=== PATIENT | female | born 2000 | race Caucasian/White ===

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

== ENCOUNTER 2020-10-02 11:45 | Emergency (ER) | payer MEDICAID, SELFPAY ==
[2020-10-02 11:51] VITALS: BP 121/71; PULSE 82; RESP 16; TEMP 36.8; O2SAT 100
[2020-10-02] MEDS: Ibuprofen 600 MG TAB PO (12:09)
[2020-10-02 12:17] LABS: Bilirubin Negative (Negative); Blood Negative (Negative); Clarity Clear (Clear); Glucose Negative (Negative); Ketones Negative (Negative); Leukocyte Esterase Trace (Negative); Nitrite Negative (Negative); Specific Gravity >= 1.030 (1.005-1.025); Urobilinogen 0.2 EU/dL (Up TO 0.2)
--- NOTE | 2020-10-02 12:19 | W.ED.GENAD ---
Discharge Plan Disposition Patient Disposition: HOME Condition: Good Discharge Details Clinical Impression: Headache, Rash Primary Care Provider: Valentina Malik ED Provider: Hortencia Duncan Home Meds and New Rx's Prescriptions: New metoclopramide HCl [Reglan] 10 mg tablet 10 mg PO Q6H PRNQty: 10 RF: 0 No Action albuterol sulfate 8.5 GM HFA aerosol inhaler 2 puff Inhalation PRN PRNRF: 0 Flovent HFA 10.6 GM HFA aerosol inhaler 2 puff Inhalation DAILY RF: 0 loratadine [Claritin Liqui-Gel] 10 MG capsule 10 mg PO DAILY RF: 0 acetaminophen [Tylenol] 325 MG tablet 1 tab PO PRN PRNRF: 0 montelukast 10 MG tablet 10 mg PO DAILY RF: 0 buspirone 30 mg Tablet 30 mg PO BID RF: 0 ibuprofen [Ibuprofen IB] 200 mg Tablet 600 mg PO Q6H PRNRF: 0 Discharge Instructions Instructions: Acute Rash (ED), Viral Syndrome (ED) Additional Instructions: Take ibuprofen 600 mg every 8 hours with food as needed for pain Take Tylenol 650 mg every 4-6 hours as needed for discomfort Stay hydrated Take Reglan as needed for headache and nausea Stay away from poultry products of pain make you feel ill Return earlier should you have new or worsening complaints Medical Decision Making Clinical evidence of allergic reaction, no rash, patient in no distress, stable vital signs, feeling symptomatically improved after ibuprofen, Tylenol, Zofran Negative test Urinalysis is contaminated, patient denies any dysuria or frequency Will not send for culture Given Reglan prescription for home for headache should she need it and nausea We will follow up with primary care physician, will avoid poultry to see if it helps with her symptoms Given the threshold for terminating worsening complaints Differential Diagnosis Differential Diagnosis: Allergic reaction, anaphylaxis, migraine headache, dehydration Medical Records Medical records reviewed: Yes I reviewed the patient's medical records. HPI This 20-year-old female presents with headache and rash. She reportedly awoke this morning with a rash on her chest just before showering. She is attributing it to eating some cherries last evening. She states she felt fine after eating poultry did not have a rash at 5:00 in the morning. She denies any difficulty swallowing. She denies fever or chills. She has been intermittently nauseous without vomiting. She states after she check in she typically has a headache the following day. She does have a history of headaches. She this headache is a little bit worse than her typical. She denies any chance of . She denies any shortness of breath or persistent rash. General Date/Time Provider Initiated Documentation: 10/02/20 11:47. Related Data Home Medications Medication Instructions Recorded Confirmed Flovent HFA 2 puff INHALATION DAILY 11/11/14 10/02/20 albuterol sulfate 2 puff INHALATION PRN PRN 11/11/14 10/02/20 loratadine [Claritin Liqui-Gel] 10 mg PO DAILY 11/11/14 10/02/20 acetaminophen [Tylenol] 1 tab PO PRN PRN 06/13/15 10/02/20 montelukast 10 mg PO DAILY 12/06/16 10/02/20 buspirone 30 mg PO BID 10/25/18 10/02/20 ibuprofen [Ibuprofen IB] 600 mg PO Q6H PRN 09/10/19 10/02/20 metoclopramide HCl [Reglan] 10 mg PO Q6H PRN #10 tab 10/02/20 Previous Rx's Medication Instructions Recorded metoclopramide HCl [Reglan] 10 mg PO Q6H PRN #10 tab 10/02/20 Allergies Allergy/AdvReac Type Severity Reaction Status Date / Time Sulfa (Sulfonamide Allergy Severe Anaphylaxsi Unverified 10/02/20 11:55 Antibiotics) s doxycycline AdvReac Severe Nausea Unverified 10/02/20 11:55 diphenhydramine AdvReac Unverified 10/02/20 11:55 [From Benadryl] General Stated Complaint: Allergic JORGE L: 3 Review of Systems Narrative: Review of systems negative x7 aside from where indicated in HPI [facility] Medical History (Updated 10/02/20 @ 13:14 by EZEQUIEL Silveira) Asthma Social History Smoking/Tobacco Use Status: Never Smoking risk assessment performed?: Yes Alcohol Intake: never Drug use: Never Substance use type: does not use Do you feel safe at home: Yes Do you feel safe in your relationship?: Yes Exam Const General: cooperative and no acute distress HENMT Other: uvula midline, no drooling Eyes Pupils: PERRL EOM: EOM intact bilaterally Neck Other: no stridor Resp Effort & Inspection: normal respiratory effort Auscultation: clear to auscultation bilaterally Cardio Rate: regular rate Rhythm: regular rhythm Skin Other: no rash visualized Neuro General: patient alert, patient oriented x3 and CN's II-XI intact bilaterally Other: Ambulatory with steady gait Course Vital Signs Vital signs: Vital Signs Temperature 36.8 C 10/02/20 11:51 Pulse 82 10/02/20 11:51 Respiratory Rate 16 10/02/20 11:51 Blood Pressure 121/71 10/02/20 11:51 Pulse Oximetry 100 10/02/20 11:51 Temperature 36.8 C 10/02/20 11:51 Temperature Source Skin 10/02/20 11:51 Pulse 82 10/02/20 11:51 Respiratory Rate 16 10/02/20 11:51 Respiratory Effort Non-Labored 10/02/20 11:51 Blood Pressure 121/71 10/02/20 11:51 Blood Pressure Position Sitting 10/02/20 11:51 Pulse Oximetry 100 10/02/20 11:51 Oxygen Delivery Method Room Air 10/02/20 11:51 Oxygen Flow Rate 0 10/02/20 11:51 Pain Level 8 10/02/20 11:51 Lab/Test Results Lab/Test Results: POC- Test(urine) Negative
[2020-10-02] MEDS: Acetaminophen 500 MG TAB 1000 MG PO (12:22)
[2020-10-02] MEDS: Ondansetron O.D.T. 4 MG TABEF PO (12:22)
[2020-10-02 12:30] LABS: Bacteria Moderate HPF (Negative); Epithelial Cells Moderate HPF (Negative); Mucus Moderate (Negative); Other Cells Negative (Negative); RBC 0-2 HPF (0-2)
[2020-10-02 12:31] LABS: C & S Indicated? No/Sq. Contamination; Casts Negative LPF (Negative); Crystals Few Calcium Oxalate HPF (Negative)
[2020-10-02 13:35] VITALS: BP 113/73; PULSE 63; RESP 16; TEMP 36.8; O2SAT 99
== END 2020-10-02 13:15 | disposition home or self-care (01) ==
PROVIDERS: Emergency Provider Physician Assistant; PCP Nurse Practitioner Family
DX: R21 Rash and other nonspecific skin eruption (principal); R51.9 Headache, unspecified; R11.0 Nausea
CPT/HCPCS: 81025; 99283; 81003; 81015

== ENCOUNTER 2020-12-21 16:51 | Outpatient (REF) | payer MEDICAID, SELFPAY ==
[2020-12-21 22:10] LABS: TSH (W/Ref FT4) 0.94 uIU/mL (0.36-3.74)
[2020-12-22 16:53] LABS: Progesterone 10.2 ng/mL (See Table)
[2020-12-22 17:31] LABS: Prolactin 10.4 ng/mL (See Table)
[2020-12-22 17:34] LABS: FSH 5.4 mIU/mL (See Note); LH 6.9 mIU/mL (See Note)
== END 2020-12-21 16:52 | disposition home or self-care (01) ==
LOC: NCHCN 16:51
PROVIDERS: PCP Nurse Practitioner Family; Visit Provider Nurse Practitioner Family
DX: Z31.69 Encounter for other general counseling and advice on procreation (principal)
CPT/HCPCS: 83001; 83002; 84144; 84146; 84443

== ENCOUNTER 2021-03-28 01:09 | Emergency (ER) | payer MEDICAID, SELFPAY ==
--- NOTE | 2021-03-28 01:13 | W.ED.GENAD ---
Discharge Plan Disposition Patient Disposition: HOME Condition: Good Discharge Details Clinical Impression: Incomplete miscarriage Primary Care Provider: Valentina Malik ED Provider: Bulmaro Carranza Home Meds and New Rx's Prescriptions: Continued albuterol sulfate 8.5 GM HFA aerosol inhaler 2 puff Inhalation PRN PRNRF: 0 Flovent HFA 10.6 GM HFA aerosol inhaler 2 puff Inhalation DAILY RF: 0 loratadine [Claritin Liqui-Gel] 10 MG capsule 10 mg PO DAILY RF: 0 acetaminophen [Tylenol] 325 MG tablet 1 tab PO PRN PRNRF: 0 montelukast 10 MG tablet 10 mg PO DAILY RF: 0 buspirone 30 mg Tablet 30 mg PO BID RF: 0 ibuprofen [Ibuprofen IB] 200 mg Tablet 600 mg PO Q6H PRNRF: 0 Discharge Instructions Instructions: Miscarriage (ED) Additional Instructions: At this time you have evidence of an incomplete miscarriage. There is still a small component of your products of conception that are still in the uterus. Please follow-up closely with your OB specialist for reassessment and options of medication or instrumental D&C. Please take Tylenol and Motrin as needed for pain. If you notice any worsening of your symptoms, or any new symptoms such as vomiting, diarrhea, fever, chills, shortness of breath, chest pain, numbness, weakness, or fainting , please return immediately to the emergency department for reevaluation. Please follow up with your primary care provider as soon as possible for reassessment and reevaluation. As always, it was a pleasure participating in your medical care today. Stand Alone Forms: Work Release Referrals: Keira Juarez DO [OSTEOPATHIC DOCTOR] - Tasia Garcia MD [ [facility] STAFF PHYSICIAN] - Medical Decision Making This is a 21-year-old female who is a G3, P0 who had a miscarriage 1 to 2 weeks ago at 12 weeks of gestation based on period. She was seen by [facility]. She was given the RhoGam shot as she is Rh-. She had no pain after this, and has been doing well at home until about 12 hours ago when she developed mild pelvic pain, in conjunction with mild spotting. She denies any vomiting or diarrhea. She describes her pain is achy. She has not had a confirmatory ultrasound since the last ultrasound [facility] which showed no heartbeat for the fetus. Patient has no other complaints at this time. She did take Tylenol prior to arrival, but this did not help her symptoms. No other modifying factors. Physical exam demonstrates minimal pelvic tenderness, closed cervical os, bedside ultrasound shows small what appears to be retained products of conception in the uterus. Patient's exam is otherwise unremarkable. No pain at McBurney's point, negative Lares sign, no evidence of acute surgical abdomen. I did contact Dr. Juarez of OB, she does recommend close follow-up in the OB clinic for discussion of D&C and medication induced expulsion. She recommends close follow-up tomorrow. Patient was reassessed after Toradol was administered has complete resolution of her pain. Repeat abdominal exam at this time shows no abdominal tenderness whatsoever. Patient feels well and would like to go home. Discussed the importance of close follow-up with OB, and close reassessment. Diagnosis incomplete miscarriage. I have extensively reviewed the treatment plan and discharge instructions with the patient. I have addressed all patient concerns at this time. The patient was made aware of what symptoms to monitor for that would warrant a return to the emergency department. Discussed the plan with the patient, they demonstrate verbal understanding and agreement with our assessment and plan at this time. The documentation in this chart was dictated using eyefactive dictation software. Please excuse any dictation errors. HPI General Date/Time Provider Initiated Documentation: 03/28/21 01:10. HPI Narrative: This is a 21-year-old female who is a G3, P0 who had a miscarriage 1 to 2 weeks ago at 12 weeks of gestation based on period. She was seen by [facility]. She was given the RhoGam shot as she is Rh-. She had no pain after this, she did pass a moderate sized clot about a week ago. And has been doing well at home until about 12 hours ago when she developed mild pelvic pain, in conjunction with mild spotting. She denies any vomiting or diarrhea. She describes her pain is achy. She has not had a confirmatory ultrasound since the last ultrasound [facility] which showed no heartbeat for the fetus. Patient has no other complaints at this time. She did take Tylenol prior to arrival, but this did not help her symptoms. No other modifying factors. Related Data Home Medications Medication Instructions Recorded Confirmed Flovent HFA 2 puff INHALATION DAILY 11/11/14 03/28/21 albuterol sulfate 2 puff INHALATION PRN PRN 11/11/14 03/28/21 loratadine [Claritin Liqui-Gel] 10 mg PO DAILY 11/11/14 03/28/21 acetaminophen [Tylenol] 1 tab PO PRN PRN 06/13/15 03/28/21 montelukast 10 mg PO DAILY 12/06/16 03/28/21 buspirone 30 mg PO BID 10/25/18 03/28/21 ibuprofen [Ibuprofen IB] 600 mg PO Q6H PRN 09/10/19 03/28/21 Allergies Allergy/AdvReac Type Severity Reaction Status Date / Time Sulfa (Sulfonamide Allergy Severe Anaphylaxsi Unverified 03/28/21 01:26 Antibiotics) s doxycycline AdvReac Severe Nausea Unverified 03/28/21 01:26 diphenhydramine AdvReac Unverified 03/28/21 01:26 [From Benadryl] General JORGE L: 3 Review of Systems All systems reviewed & are unremarkable except as noted in HPI and below [facility] Medical History (Updated 03/28/21 @ 02:37 by Bulmaro Carranza DO) Asthma Social History Smoking/Tobacco Use Status: Never Smoking risk assessment performed?: Yes Alcohol Intake: never Drug use: Never Substance use type: does not use Do you feel safe at home: Yes Do you feel safe in your relationship?: Yes Exam Narrative Exam Narrative: 1.Const: Well-nourished, Well-developed, appearing stated age 2.Eyes: PERRL, no conjunctival injection, and symmetrical lids. 3.ENT: Atraumatic external nose and ears. Moist MM. Neck: Symmetric, trachea midline, No thyromegaly. 4.CVS: +S1/S2, No murmurs or gallops. Peripheral pulses 2+ and equal in all extremities. Brisk capillary refill in all extremities. 5.RESP: Unlabored respiratory effort. Clear to auscultation bilaterally. No wheezes rales or rhonchi 6.GI: Soft, nondistended, no guarding or rebound. Minimal pelvic tenderness in the suprapubic region/pelvic region. Vaginal exam was performed with female nurse Cheryl at bedside, cervix appears closed at this time. No significant cervical motion tenderness. No pain at McBurney's point, negative Lares sign 7.MSK: Normocephalic/Atraumatic, Extremities w/o deformity or ttp No cyanosis or clubbing, Normal movement of all extremities 8.Skin: Warm, Dry. No rashes or lesions. 9.Neuro: continuing education instructor II-XII grossly intact. Sensation grossly intact, no focal neurologic deficits. 10.Psych: (AAO) x3. Appropriate mood and affect
[2021-03-28 01:16] VITALS: BP 119/76; PULSE 81; RESP 16; TEMP 36.7; O2SAT 98
[2021-03-28 01:57] LABS: Abs Immature Grans 0.05 10^3/uL (0.0-0.06); Absolute Basophil Count 0.05 10^3/uL (0.0-0.2); Absolute Eosinophil Count 0.09 10^3/uL (0.0-0.7); Absolute Lymphocyte Count 3.73 10^3/uL (1.2-3.4); Absolute Monocyte Count 0.93 10^3/uL (0.1-0.8); Absolute Neutrophil Count 8.65 10^3/uL (1.2-6.7); Basophils % 0.4; Eosinophils % 0.7; HCT 38.2 % (36.0-46.0); HGB 12.6 g/dL (11.2-15.7); Immature Grans % 0.4; Lymphocytes % 27.6; MCH 29.4 pg (27.0-33.0); MPV 9.8 fL (8.0-11.0); Monocytes % 6.9; Nucleated RBC 0 %; Platelet Count 296 10^3/uL (130-400); RBC 4.29 10^6/uL (3.93-5.22); RDW 12.3 % (11.7-14.6); RDW-SD 40.4 fL; WBC 13.51 10^3/uL (4.4-10.8)
[2021-03-28] MEDS: Ketorolac 15 MG/ML VIAL IVP (02:02)
[2021-03-28 02:16] LABS: ALT 25 U/L (14-59); AST 17 U/L (15-37); Alkaline Phosphatase 57 U/L (46-116); Anion Gap 13.4 mmol/L (3-11); BUN 9 mg/dL (7-18); Bilirubin, Total 0.4 mg/dL (0.2-1.0); CO2 25.6 mmol/L (21.0-32.0); CREATININE 0.9 mg/dL (0.55-1.02); Calcium 8.7 mg/dL (8.5-10.1); Chloride 104 mmol/L (98-107); Glucose 92 mg/dL (74-106); HCG Quant, Pregnancy 313 mIU/mL (1-3); Potassium 3.5 mmol/L (3.5-5.1); Sodium 143 mmol/L (136-145); Total Protein 6.8 g/dL (6.4-8.2)
[2021-03-28 02:22] LABS: Bilirubin Negative (Negative); Blood Large (Negative); Clarity Sl Cloudy (Clear); Glucose Negative (Negative); Ketones Negative (Negative); Leukocyte Esterase Negative (Negative); Nitrite Negative (Negative); Specific Gravity >= 1.030 (1.005-1.025); Urobilinogen 0.2 EU/dL (Up TO 0.2)
[2021-03-28 02:27] LABS: Bacteria Rare HPF (Negative); C & S Indicated? No; Casts Negative LPF (Negative); Crystals Negative HPF (Negative); Epithelial Cells Rare HPF (Negative); Mucus Negative (Negative); WBC Negative HPF (0-5)
[2021-03-28 02:45] VITALS: BP 114/50; PULSE 80; RESP 16; O2SAT 98
== END 2021-03-28 02:47 | disposition home or self-care (01) ==
PROVIDERS: Emergency Provider Student in an Organized Health Care Education/Training Program; PCP Nurse Practitioner Family
DX: O03.4 Incomplete spontaneous abortion without complication (principal)
CPT/HCPCS: 36415; 80053; 86900; 86901; 96374; 99284; 81003; 81015; 84702; 85025; 99283; J1885

== ENCOUNTER 2021-04-22 10:46 | Emergency (ER) | payer MEDICAID, SELFPAY ==
[2021-04-22 10:51] VITALS: BP 118/64; PULSE 99; RESP 16; TEMP 38.5; O2SAT 100
[2021-04-22 11:05] LABS: Source Nasal/Nares
--- NOTE | 2021-04-22 11:08 | W.ED.GENAD ---
Discharge Plan Disposition Patient Disposition: HOME Condition: Improving Discharge Details Clinical Impression: COVID-19 Primary Care Provider: Valentina Malik ED Provider: Ken Gonzáles Home Meds and New Rx's Prescriptions: Continued albuterol sulfate 8.5 GM HFA aerosol inhaler 2 puff Inhalation PRN PRNRF: 0 Flovent HFA 10.6 GM HFA aerosol inhaler 2 puff Inhalation DAILY RF: 0 loratadine [Claritin Liqui-Gel] 10 MG capsule 10 mg PO DAILY RF: 0 acetaminophen [Tylenol] 325 MG tablet 1 tab PO PRN PRNRF: 0 montelukast 10 MG tablet 10 mg PO DAILY RF: 0 buspirone 30 mg Tablet 30 mg PO BID RF: 0 ibuprofen [Ibuprofen IB] 200 mg Tablet 600 mg PO Q6H PRNRF: 0 Discharge Instructions Instructions: Viral Syndrome (ED) Additional Instructions: You should continue to self isolate and mask I have written you a work note for 10 days off work. When you have no fevers and are symptom-free you should consider yourself safe for return to work in public activities. Tylenol and ibuprofen as needed for pain. Return to the ER if you have difficulty breathing or any other acute concerns. Stand Alone Forms: POSITIVE COVID-19/NO TESTING, Work Release Medical Decision Making 21-year-old female presents from home. She is not immunized against COVID-19. She lives in a house with 6 people. She notes 3 days now with cough, body ache, mild headache, nausea and malaise. She has had subjective fever and chills at home and arrives to ER with a temp of 38.5, pulse 99, oxygenating normally on room air. Her exam is reassuring. Rapid COVID-19 test obtained, patient given acetaminophen. Patient remained stable, no hypoxia. She does have positive COVID-19 PCR test. She is stable for outpatient management understands indications to seek reevaluation in the emergency department. HPI General Mode of arrival: ambulatory. Date/Time Provider Initiated Documentation: 04/22/21 10:49. Limitations to Documentation: no limitations. Information obtained by: patient. History of Present Illness 21 year old F presents to the emergency department with the chief complaint of Headache, body ache, dry cough, fever, described as moderate, Quality is described as dull, Patient reports no radiation. Patient started experiencing this day(s) and it has been intermittent. No relieving factors improve symptom(s), No exacerbating factors reported . Patient notes cough, fever/chills, headaches and malaise; denies shortness of breath and syncope. Patient did receive the following treatments prior to arrival, none Related Data Home Medications Medication Instructions Recorded Confirmed Flovent HFA 2 puff INHALATION DAILY 11/11/14 04/22/21 albuterol sulfate 2 puff INHALATION PRN PRN 11/11/14 04/22/21 loratadine [Claritin Liqui-Gel] 10 mg PO DAILY 11/11/14 04/22/21 acetaminophen [Tylenol] 1 tab PO PRN PRN 06/13/15 04/22/21 montelukast 10 mg PO DAILY 12/06/16 04/22/21 buspirone 30 mg PO BID 10/25/18 04/22/21 ibuprofen [Ibuprofen IB] 600 mg PO Q6H PRN 09/10/19 04/22/21 Allergies Allergy/AdvReac Type Severity Reaction Status Date / Time Sulfa (Sulfonamide Allergy Severe Anaphylaxsi Unverified 04/22/21 10:58 Antibiotics) s doxycycline AdvReac Severe Nausea Unverified 04/22/21 10:58 diphenhydramine AdvReac Unverified 04/22/21 10:58 [From Benadryl] General Stated Complaint: RespSymp JORGE L: 4 Review of Systems Narrative: Not vaccinated against COVID-19. Otherwise well. No vomiting today. Mild dull headache. Notes myalgias. 8 systems reviewed and otherwise negative [facility] Medical History (Updated 04/22/21 @ 12:05 by Ken Gonzáles MD) Asthma Social History Smoking/Tobacco Use Status: Never Smoking risk assessment performed?: Yes Alcohol Intake: never Drug use: Never Substance use type: does not use Do you feel safe at home: Yes Do you feel safe in your relationship?: Yes Exam Narrative Exam Narrative: GEN: awake, alert, oriented 3. Pleasant, well groomed, interactive. HEAD: Normocephalic, atraumatic ENT: Mucous membranes moist, oropharynx unremarkable, External ear exam unremarkable EYES: PERRL, EOMI NECK: Full ROM, no SUHA, no menigismus CHEST/RESP: Nontender, clear to auscultation bilateral, no wheeze/rhonchi/rales CARDIOVASCULAR: Borderline tachycardia, RRR, no murmur, rub domitila. 2+ Rad pulse bilateral ABDOMEN: Soft, nontender, no mass. +Bowel sounds EXT: Full ROM, no edema, no rash Neuro: Grossly normal neurologic exam, conversant, interactive. Psych: Speech fluent, thoughts congruent, affect normal Course Vital Signs Vital signs: Vital Signs Temperature 38.5 C H 04/22/21 10:51 Pulse 99 H 04/22/21 10:51 Respiratory Rate 16 04/22/21 10:51 Blood Pressure 118/64 04/22/21 10:51 Pulse Oximetry 100 04/22/21 10:51 Temperature 38.5 C H 04/22/21 10:51 Temperature Source Skin 04/22/21 10:51 Pulse 99 H 04/22/21 10:51 Respiratory Rate 16 04/22/21 10:51 Respiratory Effort Non-Labored 04/22/21 10:51 Blood Pressure 118/64 04/22/21 10:51 Blood Pressure Position Sitting 04/22/21 10:51 Pulse Oximetry 100 04/22/21 10:51 Oxygen Delivery Method Room Air 04/22/21 10:51 Oxygen Flow Rate 0 04/22/21 10:51 Pain Level 5 04/22/21 10:51 Lab/Test Results Lab/Test Results: Laboratory Tests Range/Units 04/22/21 11:02 COVID-19 Source Nasal/Nares
[2021-04-22] MEDS: Acetaminophen 500 MG TAB 1000 MG PO (11:30)
[2021-04-22 12:01] LABS: COVID-19 PCR POSITIVE (Negative)
[2021-04-22 12:11] VITALS: BP 118/64; PULSE 99; RESP 16; TEMP 38.5; O2SAT 100
== END 2021-04-22 12:16 | disposition home or self-care (01) ==
PROVIDERS: Emergency Provider Emergency Medicine; PCP Nurse Practitioner Family
DX: U07.1 COVID-19 (principal)
CPT/HCPCS: 87635; 99282; 99283

== ENCOUNTER 2021-10-20 13:22 | Emergency (ER) | payer MEDICAID, SELFPAY ==
[2021-10-20 13:38] VITALS: BP 123/83; PULSE 114; RESP 20; TEMP 36.5; O2SAT 98
--- NOTE | 2021-10-20 14:14 | ED.GENADUL_ITS ---
Discharge Plan Disposition Patient Disposition: HOME Condition: Stable Discharge Details Clinical Impression: Leukocytosis, Nausea vomiting and diarrhea Primary Care Provider: Valentina Malik ED Provider: Hortencia Duncan Home Meds and New Rx's Prescriptions: Continued albuterol sulfate 8.5 GM HFA aerosol inhaler 2 puff Inhalation PRN PRN0RF Label Comments: 04/03/17 has not taken recently, only with sports Flovent HFA 10.6 GM HFA aerosol inhaler 2 puff Inhalation DAILY 0RF loratadine [Claritin Liqui-Gel] 10 MG capsule 10 mg PO DAILY 0RF acetaminophen [Tylenol] 325 MG tablet 1 tab PO PRN PRN0RF montelukast 10 MG tablet 10 mg PO DAILY 0RF buspirone 30 mg Tablet 30 mg PO BID 0RF ibuprofen [Ibuprofen IB] 200 mg Tablet 600 mg PO Q6H PRN0RF Discharge Instructions Instructions: Acute Nausea and Vomiting (ED), Leukocytosis (ED) Additional Instructions: Have your white blood cell count rechecked by your doctor next week Take Zofran as needed for nausea and vomiting Clear liquid diet only Please return earlier should you have new or worsening complaints Motrin and Tylenol as needed for discomfort Discharge Data Discharge Date/Time-TO BE ENTERED AT DEPARTURE: 10/20/21 16:31 Medical Decision Making Patient leukocytosis, 21,000, likely secondary to vomiting and illness Otherwise appears well CMP consistent with dehydration, receiving 2 L of normal saline and antiemetics Abdominal exam benign, suspect musculoskeletal pain secondary to vomiting and otherwise healthy female I did consider CT imaging, however patient's abdominal exam is nontender She is given a specialist to return should she have Will need recheck of CBC in the outpatient setting, patient made aware Given antiemetics for home Likely viral etiology of patient's complaints Return precautions discussed and patient expressed understanding Discharged home in stable condition with stable vitals, symptomatically improved and able to follow p.o. challenge HPI General Date/Time Provider Initiated Documentation: 10/20/21 13:33 . HPI Narrative: This 21-year-old female presents with past medical history of genital herpes with report of nausea and vomiting which came on abruptly this morning. Parents reportedly sick with similar symptoms 2 days ago. Denies any fever or chills. Has nausea, vomiting, diarrhea. Pain started hematemesis. Denies any blood in stool. Denies any chest discomfort or current shortness of breath. Denies exposure to COVID-19. Denies any urinary symptoms. Denies any history of alcohol consumption or chance of . Describes the pain as cramping and partially alleviated with vomiting and diarrhea. Related Data Home Medications Medication Instructions Recorded Confirmed albuterol sulfate 90 mcg/actuation 2 puff INHALATION PRN PRN 11/11/14 10/20/21 aerosol inhaler fluticasone propionate 44 2 puff INHALATION DAILY 11/11/14 10/20/21 mcg/actuation HFA aerosol inhaler (Flovent HFA) loratadine 10 mg capsule (Claritin 10 mg PO DAILY 11/11/14 10/20/21 Liqui-Gel) acetaminophen 325 mg tablet 1 tab PO PRN PRN 06/13/15 10/20/21 (Tylenol) montelukast 10 mg tablet 10 mg PO DAILY 12/06/16 10/20/21 buspirone 30 mg tablet 30 mg PO BID 10/25/18 10/20/21 ibuprofen 200 mg tablet (Ibuprofen 600 mg PO Q6H PRN 09/10/19 10/20/21 IB) Allergies Allergy/AdvReac Type Severity Reaction Status Date / Time Sulfa (Sulfonamide Allergy Severe Anaphylaxsi Unverified 10/20/21 13:43 Antibiotics) s doxycycline AdvReac Severe Nausea Unverified 10/20/21 13:43 diphenhydramine AdvReac Unverified 10/20/21 13:43 [From Benadryl] General Stated Complaint: Nausea/Vomit/Diar JORGE L: 3 Review of Systems All systems reviewed & are unremarkable except as noted in HPI and below PFSH All Active Problems (Updated 10/20/21 @ 16:11 by EZEQUIEL Silveira) Headache (Acute) Rash (Acute) Incomplete miscarriage (Acute) COVID-19 (Acute) Leukocytosis (Acute) Nausea vomiting and diarrhea (Acute) Genital herpes (Acute) Allergic rhinitis due to pollen (Chronic 08/20/17) URI, acute (Acute) Strep pharyngitis (Acute) Medical History (Updated 10/20/21 @ 16:11 by EZEQUIEL Silveira) Asthma Social History Smoking/Tobacco Use Status: Never Smoking risk assessment performed?: Yes Alcohol Intake: never Drug use: Never Substance use type: does not use Do you feel safe at home: Yes Do you feel safe in your relationship?: Yes Exam Const General: cooperative, comfortable and no acute distress Eyes Sclera: sclerae normal Resp Effort & Inspection: normal respiratory effort Auscultation: clear to auscultation bilaterally Cardio Rate: regular rate Rhythm: regular rhythm GI Inspection: normal to inspection Auscultation: normal bowel sounds Other: Nontender abdominal exam Skin General skin exam: no rashes or lesions noted Neuro General: patient alert and patient oriented x3 Course Vital Signs Vital signs: Vital Signs Temperature 36.5 C 10/20/21 13:38 Pulse 114 H 10/20/21 13:38 Respiratory Rate 20 10/20/21 13:38 Blood Pressure 123/83 10/20/21 13:38 Pulse Oximetry 98 10/20/21 13:38 Temperature 36.5 C 10/20/21 13:38 Temperature Source Skin 10/20/21 13:38 Pulse 114 H 10/20/21 13:38 Respiratory Rate 20 10/20/21 13:38 Respiratory Effort 10/20/21 13:42 Blood Pressure 123/83 10/20/21 13:38 Blood Pressure Position Sitting 10/20/21 13:38 Pulse Oximetry 98 10/20/21 13:38 Oxygen Delivery Method Room Air 10/20/21 13:38 Oxygen Flow Rate 0 10/20/21 13:38 Pain Level 10 10/20/21 13:38
[2021-10-20 14:39] LABS: Abs Immature Grans 0.14 10^3/uL (0.0-0.06); Basophils % 0.3; HCT 47.2 % (36.0-46.0); HGB 15.5 g/dL (11.2-15.7); Immature Grans % 0.6; Lymphocytes % 3.8; MCH 29.3 pg (27.0-33.0); MCHC 32.8 % (32.0-36.0); MCV 89.2 fL (80-95); MPV 10.3 fL (8.0-11.0); Monocytes % 3.5; Neutrophils % 91.8; Nucleated RBC 0 %; Platelet Count 413 10^3/uL (130-400); RBC 5.29 10^6/uL (3.93-5.22); RDW 12.2 % (11.7-14.6); RDW-SD 40.4 fL; WBC 21.66 10^3/uL (4.4-10.8)
[2021-10-20 14:43] LABS: Absolute Basophil Count 0.06 10^3/uL (0.0-0.2); Absolute Monocyte Count 0.76 10^3/uL (0.1-0.8)
[2021-10-20 14:44] LABS: Absolute Lymphocyte Count 0.82 10^3/uL (1.2-3.4); Absolute Neutrophil Count 19.88 10^3/uL (1.2-6.7)
[2021-10-20 14:51] LABS: ALT 23 U/L (14-59); AST 20 U/L (15-37); Albumin 5.2 g/dL (3.4-5.0); Alkaline Phosphatase 52 U/L (46-116); BUN 15 mg/dL (7-18); Bilirubin, Total 0.8 mg/dL (0.2-1.0); Calcium 9.5 mg/dL (8.5-10.1); Chloride 105 mmol/L (98-107); Glucose 112 mg/dL (74-106); Lipase 70 U/L (73-393); Potassium 3.7 mmol/L (3.5-5.1); Sodium 140 mmol/L (136-145); Total Protein 8.8 g/dL (6.4-8.2)
[2021-10-20 15:00] LABS: Magnesium 2.3 mg/dL (1.8-2.4)
[2021-10-20] MEDS: Ketorolac 15 MG/ML VIAL IVP (15:02)
[2021-10-20] MEDS: Ondansetron 4 MG/2 ML VIAL IVP (15:04)
[2021-10-20] MEDS: Normal Saline 1,000 ML 1000 ML IV (15:04)
[2021-10-20 15:05] LABS: Bilirubin Negative (Negative); Blood Moderate (Negative); Clarity Clear (Clear); Glucose Negative (Negative); Ketones 15 mg/dL (Negative); Leukocyte Esterase Negative (Negative); Nitrite Negative (Negative); Specific Gravity >= 1.030 (1.005-1.025); Urobilinogen 0.2 EU/dL (Up TO 0.2)
[2021-10-20 15:23] LABS: Bacteria Negative HPF (Negative); Epithelial Cells Moderate HPF (Negative); RBC 0-2 HPF (0-2); WBC 0-2 HPF (0-5)
[2021-10-20 15:24] LABS: C & S Indicated? No; Casts Negative LPF (Negative); Crystals Negative HPF (Negative); Mucus Negative (Negative)
[2021-10-20 16:19] VITALS: BP 133/72; PULSE 94; RESP 16; O2SAT 100
[2021-10-22 11:09] LABS: COVID-19 RT-PCR UVMMC Result Negative (Negative)
== END 2021-10-20 16:31 | disposition home or self-care (01) ==
PROVIDERS: Emergency Provider Physician Assistant; PCP Nurse Practitioner Family
DX: R11.2 Nausea with vomiting, unspecified (principal); R19.7 Diarrhea, unspecified; D72.829 Elevated white blood cell count, unspecified; Z20.822 Contact with and (suspected) exposure to COVID-19
CPT/HCPCS: 36415; 80053; 81025; 83690; 96361; 96374; 96375; 99283; 99284; U0003; 81003; 81015; 83735; 85025; J1885; J2405

== ENCOUNTER 2022-01-04 11:09 | Outpatient (REF) | payer MEDICAID, SELFPAY ==
--- NOTE | 2022-01-04 10:20 | PAPFT_PTH ---
PATIENT: Jessica Milan LOC: [facility] U#:[id number] AGE/SX: 21/F ROOM: RE01/04/[address]: Kathi Lake NP : 2000 BED: DIS: 01/04/2022 SPEC #: [id number] RECD: 01/04/22 18:13 STATUS: NATALEEProsper REMaria Luisa #: [id number] SAGAR: 01/04/22 10:[address]: Kathi Lake NP DEPT: [facility] Cytology RECD BY: Hortencia Desai ENTERED: 01/04/22 18:14 SP TYPE: PAPFT OTHR DR: Darryn Moreno NP Tissues: 1 - CX/ENDOCX FOR PAP SMEARS Procedures: PAP THIN PREP/[facility] Screening Comments: [id number] (CHLAMYDIA/GC)
[2022-01-05 15:06] LABS: Chlamydia Result Negative (Negative); GC Result Negative (Negative)
== END 2022-01-04 11:10 | disposition home or self-care (01) ==
LOC: LBN 11:09
PROVIDERS: PCP Nurse Practitioner Family; Visit Provider Nurse Practitioner Women's Health
DX: Z11.3 Encounter for screening for infections with a predominantly sexual mode of transmission (principal); Z12.4 Encounter for screening for malignant neoplasm of cervix; R87.610 Atypical squamous cells of undetermined significance on cytologic smear of cervix (ASC-US)
CPT/HCPCS: 87491; 87591; 88142

== ENCOUNTER → 2022-01-18 01:23 | Outpatient (CLI) | payer MEDICAID, SELFPAY ==
--- NOTE | 2022-01-18 08:15 | DI.US_ITS ---
Exam(s) US SOFT TISSUE EXTREMITY EXAM: US SOFT TISSUE EXTREMITY CLINICAL HISTORY: Lump on left upper shoulder,r22.9. TECHNIQUE: Ultrasound was performed using standard protocol. COMPARISON: CT CT ABDOMEN PELVIS WO from 10/25/[address] CHEST PE CTA from 10/25/2018 FINDINGS: Sonographic assessment utilizing grayscale and color Doppler imaging was performed and targeted to th e area of clinical concern. There is a 3 x 2 x 3 millimeter hypoechoic area within the skin which is avascular. It is too small to characterize. DATA REPOSITORY:
== END ==
PROVIDERS: PCP Nurse Practitioner Family; Visit Provider Nurse Practitioner Family
DX: R22.32 Localized swelling, mass and lump, left upper limb (principal)
CPT/HCPCS: 76881

== ENCOUNTER 2022-02-10 17:28 | Emergency (ER) | payer MEDICAID, SELFPAY ==
[2022-02-10 17:44] VITALS: BP 121/63; PULSE 105; RESP 16; TEMP 37.7; O2SAT 100
[2022-02-10 17:51] VITALS: TEMP 37.6
[2022-02-10] MEDS: Ibuprofen 100 MG/5 ML CUP 600 MG PO (19:20)
[2022-02-10] MEDS: Dexamethasone 10 MG/ML VIAL PO (19:20)
--- NOTE | 2022-02-10 19:42 | W.ED.GENAD ---
Discharge Plan Disposition Patient Disposition: HOME Condition: Stable Discharge Details Clinical Impression: Acute viral syndrome Primary Care Provider: Darryn Moreno ED Provider: Mitch Hensley Home Meds and New Rx's Prescriptions: Continued medroxyprogesterone [Depo-Provera] 150 mg/mL syringe 150 mg IM [id number] Qty: 1 3RF fluoxetine 10 mg capsule 10 mg PO DAILY Qty: 30 0RF clonidine HCl 0.1 mg tablet 0.1 mg PO BID MDD 2 tabs PRN (Reason: agitation) Qty: 60 0RF fluticasone propionate [Flonase Allergy Relief] 50 mcg/actuation spray,suspension 1 spray intranasal BID Rx Instructions: administer into each nostril fluticasone propionate [Flovent HFA] 10.6 GM HFA aerosol inhaler 2 puff Inhalation DAILY Claritin Liqui-Gel 10 MG capsule 10 mg PO DAILY acetaminophen [Tylenol] 325 MG tablet 1 tab PO PRN PRN montelukast 10 MG tablet 10 mg PO DAILY ibuprofen [Ibuprofen IB] 200 mg Tablet 600 mg PO Q6H PRN Discharge Instructions Instructions: Viral Syndrome (ED) Additional Instructions: Please drink plenty of fluid and allow for plenty of rest. Use ibuprofen for discomfort or fever. Dose according to label. Please stay home and maintain isolation until COVID test result is available and normal. Please contact your primary care physician to arrange follow-up. Return to the ER immediately for any worsening or new concerning symptoms. Stand Alone Forms: Work Release Referrals: Darryn Moreno, DOCUMENT REVIEW SPECIALIST [Primary Care Provider] - Discharge Data Discharge Date/Time-TO BE ENTERED AT DEPARTURE: 02/10/22 19:57 Medical Decision Making 22-year-old female here with sore throat, fever, arthralgias. Patient has mild nausea. No cough. Mild headache. No neck stiffness. No meningismus. Patient is tachycardic and with low-grade fever on arrival. Patient notes difficulty swallowing secondary to pain. Patient does have some lymphadenopathy noted right anterior cervical. No stridor or trismus. No signs of strep pharyngitis. Patient was treated with Decadron 10 mg p.o. and ibuprofen 600 mg p.o. Patient noted improvement and was able to tolerate swallowing. Plan for discharge with outpatient follow-up. I will send COVID test. Patient was encouraged to return immediately for any worsening or new concerning symptoms. Usual customary discharge instructions otherwise reviewed with patient. HPI General Mode of arrival: ambulatory. Date/Time Provider Initiated Documentation: 02/10/22 18:36. Limitations to Documentation: no limitations. Information obtained by: patient. HPI Narrative: 22-year-old female presents with chief complaint of sore throat. Symptoms started this afternoon. Sore throat is moderate to severe and she does note pain with swallowing. Pain worse on the right side. She has associated fever and arthralgias. Patient has mild nausea. No cough. Mild headache. No neck stiffness. Related Data Home Medications Medication Instructions Recorded Confirmed fluticasone propionate 44 2 puff inhalation DAILY 11/11/14 02/10/22 mcg/actuation HFA aerosol inhaler (Flovent HFA) loratadine 10 mg capsule (Claritin 10 mg PO DAILY 11/11/14 02/10/22 Liqui-Gel) acetaminophen 325 mg tablet 1 tab PO PRN PRN 06/13/15 02/10/22 (Tylenol) montelukast 10 mg tablet 10 mg PO DAILY 12/06/16 02/10/22 ibuprofen 200 mg tablet (Ibuprofen 600 mg PO Q6H PRN 09/10/19 02/10/22 IB) fluticasone propionate 50 1 spray intranasal BID 12/02/21 02/10/22 mcg/actuation nasal spray,suspension (Flonase Allergy Relief) medroxyprogesterone 150 mg/mL 150 mg IM [id number] #1 mL 01/04/22 02/10/22 intramuscular syringe (Depo-Provera) clonidine HCl 0.1 mg tablet 0.1 mg PO BID PRN agitation #60 01/19/22 02/10/22 tabs fluoxetine 10 mg capsule 10 mg PO DAILY #30 caps 01/19/22 02/10/22 Previous Rx's Medication Instructions Recorded medroxyprogesterone 150 mg/mL 150 mg IM [id number] #1 mL 01/04/22 intramuscular syringe (Depo-Provera) clonidine HCl 0.1 mg tablet 0.1 mg PO BID PRN agitation #60 01/19/22 tabs fluoxetine 10 mg capsule 10 mg PO DAILY #30 caps 01/19/22 Allergies Allergy/AdvReac Type Severity Reaction Status Date / Time Sulfa (Sulfonamide Allergy Severe Anaphylaxsi Unverified 02/10/22 17:46 Antibiotics) s sulfamethoxazole Allergy Severe Unverified 02/10/22 17:46 [From Bactrim] trimethoprim [From Bactrim] Allergy Severe Unverified 02/10/22 17:46 mold Allergy Intermediate Unverified 02/10/22 17:46 pneumococcal vaccine Allergy Mild Unverified 02/10/22 17:46 pollen extracts Allergy Mild Unverified 02/10/22 17:46 doxycycline AdvReac Severe Nausea Unverified 02/10/22 17:46 diphenhydramine AdvReac Unverified 02/10/22 17:46 [From Benadryl] General Stated Complaint: Fever JORGE L: 3 Review of Systems All systems reviewed & are unremarkable except as noted in HPI and below Constitutional Constitutional: Reports body ache(s) and Reports fever(s) ENT Ears, Nose, Mouth, and Throat: Reports as per HPI Respiratory Respiratory: Denies cough PFSH All Active Problems Acute viral syndrome (Acute) Lump of skin (Acute) Allergies (Acute) Hallux valgus of left foot (Acute) Onychomycosis (Acute) Anxiety and depression (Chronic) Insomnia (Acute) Headache (Acute) Rash (Acute) COVID-19 (Acute) Genital herpes (Acute) HSV PCR blood test negative for HSV 1&2 09/08/2019 Allergic rhinitis due to pollen (Chronic 08/20/17) Medical History Asthma Astigmatism Incomplete miscarriage Surgical History H/O dilation and curettage History of surgical procedure (~09/2018) left middle finger S/P matrixectomy of toe of right foot Family History Mother Asthma Hypertension Father No problems noted. Sister No problems noted. Brother No problems noted. Maternal Grandfather , 50 Heart disease Maternal Grandmother No problems noted. Paternal Grandmother No problems noted. Social History Smoking/Tobacco Use Status: Never Smoking risk assessment performed?: Yes Alcohol Intake: never Drug use: Never Substance use type: does not use Caregiver/Support person: No Household members: other Details: parents Housing: house Communication Needs: None Do you need help understanding health information?: Never Pets and animals: Yes Pets and animals: cat(s), dog(s) and farm animals Sexually active: No Do you think of yourself as: straight/heterosexual Current gender identity: female What is your relationship status?: refused to answer How often do you talk on the phone with friends or family?: once per week How often do you get together with friends or relatives?: never How often do you attend lutheran or mandaen services?: decline to answer Do you belong to any clubs or organized social groups?: no Panel score (0-1 are the most socially isolated patients): 0 What type of physical activity do you participate in: none Seatbelt use: always Helmet use: Yes Helmet use: always Drive intox or ride 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 Do you feel safe at home: Yes Do you feel safe in your relationship?: Yes Female Reproductive History Menstrual control method: progesterone injection History History 1 Para 0 Hx # Term Pregnancies Multiple births Hx # Pregnancies Ectopic pregnancies AB induced Hx Number of Living Children AB spontaneous 1 Exam Const General: cooperative and no acute distress HENMT Mouth: moist mucous membranes and no trismus Throat: tonsils normal, uvula midline, no peritonsillar masses and posterior oropharynx abnormal erythema (mild b/l); no cobblstoning, no edema and no exudates Eyes Conjunctivae: normal conjunctivae Sclera: normal sclerae Neck Neck: full ROM, trachea midline, supple, no anterior neck swelling and lymphadenopathy (mild rt ant cervical) Thyroid: warm Resp Auscultation: clear to auscultation bilaterally, no rales, no rhonchi and no wheezes Cardio Rate: regular rate and not tachycardic Rhythm: regular rhythm GI Palpation: soft, not firm, no guarding, no masses, not rigid and nontender Skin General skin exam: no rashes or lesions noted Neuro General: patient alert, patient awake and tone normal Course Vital Signs Vital signs: Vital Signs Temperature 37.7 C H 02/10/22 17:44 Pulse 105 H 02/10/22 17:44 Respiratory Rate 16 02/10/22 17:44 Blood Pressure 121/63 02/10/22 17:44 Pulse Oximetry 100 02/10/22 17:44 Temperature 37.6 C 02/10/22 17:51 Temperature Source Oral 02/10/22 17:51 Pulse 105 H 02/10/22 17:44 Respiratory Rate 16 02/10/22 17:44 Respiratory Effort Non-Labored 02/10/22 17:49 Blood Pressure 121/63 02/10/22 17:44 Pulse Oximetry 100 02/10/22 17:44 Oxygen Delivery Method Room Air 02/10/22 17:44 Oxygen Flow Rate 0 02/10/22 17:44 Pain Level 10 02/10/22 17:44
[2022-02-10 19:53] VITALS: BP 124/68; PULSE 88; RESP 19; TEMP 36.7; O2SAT 98
[2022-02-12 14:14] LABS: COVID-19 RT-PCR UVMMC Result Negative (Negative)
== END 2022-02-10 19:57 | disposition home or self-care (01) ==
PROVIDERS: Emergency Provider Student in an Organized Health Care Education/Training Program; PCP Nurse Practitioner Family
DX: B34.9 Viral infection, unspecified (principal); R00.0 Tachycardia, unspecified; R59.0 Localized enlarged lymph nodes; J45.909 Unspecified asthma, uncomplicated; Z20.822 Contact with and (suspected) exposure to COVID-19; Z79.51 Long term (current) use of inhaled steroids
CPT/HCPCS: 99283; U0003; 99284; J1100

== ENCOUNTER 2022-05-14 10:49 | Emergency (ER) | payer MEDICAID, SELFPAY ==
[2022-05-14] VITALS (16 sets, daily range): BP systolic 119–137; BP diastolic 65–85; PULSE 58–99; RESP 14–18; TEMP 37.1; O2SAT 99–100
--- NOTE | 2022-05-14 11:26 | ED.GENADUL_ITS ---
Discharge Plan Disposition Patient Disposition: HOME Condition: Improving Discharge Details Chief Complaint: Nausea/Vomit/Diar Clinical Impression: Gastritis, Nausea & vomiting Primary Care Provider: Darrny Moreno ED Provider: Jake Stroud Home Meds and New Rx's Prescriptions: No Action medroxyprogesterone [Depo-Provera] 150 mg/mL syringe 150 mg IM [id number] Qty: 1 3RF montelukast 10 mg tablet 10 mg PO DAILY Qty: 90 4RF fluoxetine 20 mg capsule 20 mg PO DAILY Qty: 90 4RF Claritin Liqui-Gel 10 mg capsule 10 mg PO DAILY Qty: 90 4RF fluticasone propionate [Flonase Allergy Relief] 50 mcg/actuation spray,suspension 1 spray intranasal BID Qty: 16 4RF Rx Instructions: administer into each nostril clonidine HCl 0.1 mg tablet 0.1 mg PO BID MDD 2 tabs PRN (Reason: agitation) Qty: 60 1RF fluticasone propionate [Flovent HFA] 10.6 GM HFA aerosol inhaler 2 puff Inhalation DAILY acetaminophen [Tylenol] 325 MG tablet 1 tab PO PRN PRN ibuprofen [Ibuprofen IB] 200 mg Tablet 600 mg PO Q6H PRN Discharge Instructions Instructions: Gastritis (ED), Acute Nausea and Vomiting (ED) Medical Decision Making 22-year-old female presents with epigastric discomfort nausea and vomiting this morning while flutters in the setting of drinking heavily last night. Subjective epigastric discomfort on examination without guarding or rebounding. Hemodynamically stable no acute distress nonperitoneal. Likely component of gastritis versus hangover versus mild dehydration versus less likely pancreatitis, unlikely cholecystitis or appendicitis. Will obtain basic labs fluids GI cocktail close reassessment 13: 33 patient resting notably no acute distress labs unremarkable. Will be discharged home with Zofran as needed. Home care instructions and return precautions given. Likely resolving gastritis and hangover. HPI General Date/Time Provider Initiated Documentation: 05/14/22 10:53 . HPI Narrative: 22-year-old female presents with nausea epigastric discomfort and vomiting this morning multiple episodes in the setting of drinking heavily last night at a [employer]. Denies diarrhea or constipation. Receives the Depo contraceptive last menstrual period several months ago. Related Data Home Medications Medication Instructions Recorded Confirmed fluticasone propionate 44 2 puff inhalation DAILY 11/11/14 05/14/22 mcg/actuation HFA aerosol inhaler (Flovent HFA) loratadine 10 mg capsule (Claritin 10 mg PO DAILY #90 caps 11/11/14 05/14/22 Liqui-Gel) acetaminophen 325 mg tablet 1 tab PO PRN PRN 06/13/15 03/01/22 (Tylenol) ibuprofen 200 mg tablet (Ibuprofen 600 mg PO Q6H PRN 09/10/19 05/14/22 IB) medroxyprogesterone 150 mg/mL 150 mg IM [id number] #1 mL 01/04/22 05/14/22 intramuscular syringe (Depo-Provera) fluticasone propionate 50 1 spray intranasal BID #16 grams 02/22/22 05/14/22 mcg/actuation nasal spray,suspension (Flonase Allergy Relief) clonidine HCl 0.1 mg tablet 0.1 mg PO BID PRN agitation #60 02/27/22 05/14/22 tabs fluoxetine 20 mg capsule 20 mg PO DAILY #90 caps 03/01/22 05/14/22 montelukast 10 mg tablet 10 mg PO DAILY #90 tabs 03/01/22 05/14/22 Previous Rx's Medication Instructions Recorded loratadine 10 mg capsule (Claritin 10 mg PO DAILY #90 caps 11/11/14 Liqui-Gel) medroxyprogesterone 150 mg/mL 150 mg IM [id number] #1 mL 01/04/22 intramuscular syringe (Depo-Provera) fluticasone propionate 50 1 spray intranasal BID #16 grams 02/22/22 mcg/actuation nasal spray,suspension (Flonase Allergy Relief) clonidine HCl 0.1 mg tablet 0.1 mg PO BID PRN agitation #60 02/27/22 tabs fluoxetine 20 mg capsule 20 mg PO DAILY #90 caps 03/01/22 montelukast 10 mg tablet 10 mg PO DAILY #90 tabs 03/01/22 Allergies Allergy/AdvReac Type Severity Reaction Status Date / Time Sulfa (Sulfonamide Allergy Severe Anaphylaxsi Unverified 05/14/22 11:16 Antibiotics) s sulfamethoxazole Allergy Severe Unverified 05/14/22 11:16 [From Bactrim] trimethoprim [From Bactrim] Allergy Severe Unverified 05/14/22 11:16 mold Allergy Intermediate Unverified 05/14/22 11:16 pneumococcal vaccine Allergy Mild Unverified 05/14/22 11:16 pollen extracts Allergy Mild Unverified 05/14/22 11:16 doxycycline AdvReac Severe Nausea Unverified 05/14/22 11:16 diphenhydramine AdvReac Unverified 05/14/22 11:16 [From Benadryl] General Stated Complaint: Nausea/Vomit/Diar JORGE L: 3 Review of Systems Narrative: Review of Systems Constitutional: negative Eyes: negative ENT: negative Cardiovascular: negative Respiratory: negative Gastrointestinal: Abdominal pain nausea vomiting : negative Musculoskeletal: negative Skin: negative Neurologic: negative Psych: negative PFSH All Active Problems (Updated 05/14/22 @ 13:34 by Jake Stroud MD) Gastritis (Acute) Nausea & vomiting (Acute) Lump of skin (Acute) Allergies (Acute) Hallux valgus of left foot (Acute) Onychomycosis (Acute) Anxiety and depression (Chronic) Insomnia (Acute) Headache (Acute) Rash (Acute) COVID-19 (Acute) Genital herpes (Acute) HSV PCR blood test negative for HSV 1&2 09/08/2019 Allergic rhinitis due to pollen (Chronic 08/20/17) Medical History Asthma Astigmatism Incomplete miscarriage Surgical History H/O dilation and curettage History of surgical procedure (~09/2018) left middle finger S/P matrixectomy of toe of right foot Family History Mother Asthma Hypertension Father No problems noted. Sister No problems noted. Brother No problems noted. Maternal Grandfather , 50 Heart disease Maternal Grandmother No problems noted. Paternal Grandmother No problems noted. Social History Smoking/Tobacco Use Status: Never Smoking risk assessment performed?: Yes Alcohol Intake: current Alcohol Intake frequency: holidays/special occasions only Alcohol type: hard liquor Drug use: Never Substance use type: does not use Caregiver/Support person: No Household members: other Details: parents Housing: house Communication Needs: None Do you need help understanding health information?: Never Pets and animals: Yes Pets and animals: cat(s), dog(s) and farm animals Sexually active: No Do you think of yourself as: straight/heterosexual Current gender identity: female What is your relationship status?: refused to answer How often do you talk on the phone with friends or family?: once per week How often do you get together with friends or relatives?: never How often do you attend sikh or buddhist services?: decline to answer Do you belong to any clubs or organized social groups?: no Panel score (0-1 are the most socially isolated patients): 0 What type of physical activity do you participate in: none Seatbelt use: always Helmet use: Yes Helmet use: always Drive intox or ride w/intox feedmobile driver: No Do you feel safe at home: Yes Do you feel safe in your relationship?: Yes Additional Social history: boyfriend at bedside. Female Reproductive History Menstrual control method: progesterone injection History History 1 Para 0 Hx # Term Pregnancies Multiple births Hx # Pregnancies Ectopic pregnancies AB induced Hx Number of Living Children AB spontaneous 1 Exam Narrative Exam Narrative: Physical Examination General: alert, awake, cooperative, resting comfortably, no acute distress HEENT: normocephalic, atraumatic; PERRL, EOM intact, conjunctiva normal; no nasal discharge; moist mucous membranes, oral and pharyngeal mucosa normal, tolerating secretions Neck: supple, trachea midline; full ROM Chest: normal to inspection Respiratory: normal respiratory effort, speaking in full sentences, clear to auscultation, no wheezing, rales or rhonchi Cardiac: regular rate, regular rhythm, S1S2 intact, no murmurs rubs or gallops GI: abdomen soft, subjective discomfort in the epigastrium, no guarding or rebounding, non-distended; no palpable mass or hepatosplenomegaly Skin: no lesions, rashes or trauma appreciated Neuro: AAOx3, normal speech, moving all extremities Psych: Appropriate mood and affect Course Vital Signs Vital signs: Vital Signs Temperature 37.1 C 05/14/22 10:53 Pulse 99 H 05/14/22 10:53 Respiratory Rate 14 05/14/22 10:53 Blood Pressure 130/85 05/14/22 10:53 Pulse Oximetry 99 05/14/22 10:53 Temperature 37.1 C 05/14/22 10:53 Temperature Source Skin 05/14/22 10:53 Pulse 99 H 05/14/22 10:53 Respiratory Rate 14 05/14/22 10:53 Respiratory Effort Non-Labored 05/14/22 11:24 Blood Pressure 130/85 05/14/22 10:53 Blood Pressure Position Sitting 05/14/22 10:53 Pulse Oximetry 99 05/14/22 10:53 Oxygen Delivery Method Room Air 05/14/22 10:53 Oxygen Flow Rate 0 05/14/22 10:53 Pain Level 8 05/14/22 10:53 Comment alcohol last night - denies drug use 05/14/22 10:53 PAWSS Have you Been Recently Intoxicated or Drunk Within the Last 30 days?: Yes Have you Ever Experienced Previous Episodes of Alcohol Withdrawal?: No Have you ever Experienced Withdrawal Seizures?: No Have you ever Experienced Delirium Tremens(DT)s?: No Have you ever undergone Alcohol Rehabilitation Treatment (i.e, inpt ot outpatient treatment programs)?: No Have you ever Experienced Blackouts?: No Have you ever Combined Alcohol with other Downers within the last 90 days?: No Have you ever Combined Alcohol with any other Substance of Abuse during the last 90 days?: No Positive Blood Alcohol level on Presentation? [PCS.BAL]: No Evidence of Increased Autonomic Activity (i.e. HR>120, tremor, sweating, agitation, nausea)?: No Result: 1
[2022-05-14] MEDS: Ondansetron 4 MG/2 ML VIAL IVP (11:35)
[2022-05-14] MEDS: Lidocaine 2% Viscous 15 ML CUP PO (11:35)
[2022-05-14] MEDS: Famotidine 20 MG/2 ML VIAL IVP (11:35)
[2022-05-14] MEDS: Mylanta Suspension 30 ML CUP PO (11:35)
[2022-05-14] MEDS: Normal Saline 1,000 ML 1000 ML IV (11:36)
[2022-05-14 11:42] LABS: Abs Immature Grans 0.03 10^3/uL (0.0-0.06); Absolute Basophil Count 0.08 10^3/uL (0.0-0.2); Absolute Lymphocyte Count 2.18 10^3/uL (1.2-3.4); Absolute Monocyte Count 0.47 10^3/uL (0.1-0.8); Basophils % 0.7; HGB 14.3 g/dL (11.2-15.7); Immature Grans % 0.3; Lymphocytes % 19.8; MCH 28.9 pg (27.0-33.0); MCV 85 fL (80-95); MPV 9.9 fL (8.0-11.0); Monocytes % 4.3; Neutrophils % 74.9; Platelet Count 375 10^3/uL (130-400); RBC 4.94 10^6/uL (3.93-5.22); RDW-SD 37.1 fL; WBC 11.02 10^3/uL (4.4-10.8)
[2022-05-14 11:46] LABS: Absolute Neutrophil Count 8.25 10^3/uL (1.2-6.7)
[2022-05-14 11:49] LABS: ALT 19 U/L (14-59); AST 18 U/L (15-37); Albumin 4.8 g/dL (3.4-5.0); Alkaline Phosphatase 45 U/L (46-116); BUN 13 mg/dL (7-18); Bilirubin, Total 0.4 mg/dL (0.2-1.0); CREATININE 0.9 mg/dL (0.55-1.02); Calcium 9.6 mg/dL (8.5-10.1); Chloride 106 mmol/L (98-107); Glucose 95 mg/dL (74-106); Lipase 49 U/L (73-393); Potassium 4.2 mmol/L (3.5-5.1); Sodium 143 mmol/L (136-145); Total Protein 8.5 g/dL (6.4-8.2)
[2022-05-14] MEDS: Ondansetron O.D.T. 4 MG TABEF, 3 TABS/BTL PO (13:44)
== END 2022-05-14 13:53 | disposition home or self-care (01) ==
PROVIDERS: Emergency Provider Emergency Medicine; PCP Nurse Practitioner Family
DX: K29.00 Acute gastritis without bleeding (principal); R11.2 Nausea with vomiting, unspecified
CPT/HCPCS: 36415; 80053; 81025; 83690; 96361; 96374; 96375; 99284; 85025; 99283; J2405

== ENCOUNTER 2022-06-03 16:34 | Emergency (ER) | payer MEDICAID, SELFPAY ==
[2022-06-03 16:37] VITALS: BP 119/68; PULSE 76; RESP 16; TEMP 37; O2SAT 100
--- NOTE | 2022-06-03 16:43 | ED.GENADUL_ITS ---
Discharge Plan Disposition Patient Disposition: Home Condition: Stable Discharge Details Clinical Impression: Contusion of right shoulder region Primary Care Provider: Darryn Moreno ED Provider: Gianna Machado Home Meds and New Rx's Prescriptions: Continued medroxyprogesterone [Depo-Provera] 150 mg/mL syringe 150 mg IM [id number] Qty: 1 3RF montelukast 10 mg tablet 10 mg PO DAILY Qty: 90 4RF fluoxetine 20 mg capsule 20 mg PO DAILY Qty: 90 4RF Claritin Liqui-Gel 10 mg capsule 10 mg PO DAILY Qty: 90 4RF fluticasone propionate [Flonase Allergy Relief] 50 mcg/actuation spray,suspension 1 spray intranasal BID Qty: 16 4RF Rx Instructions: administer into each nostril clonidine HCl 0.1 mg tablet 0.1 mg PO BID MDD 2 tabs PRN (Reason: agitation) Qty: 60 1RF fluticasone propionate [Flovent HFA] 10.6 GM HFA aerosol inhaler 2 puff Inhalation DAILY acetaminophen [Tylenol] 325 MG tablet 1 tab PO PRN PRN ibuprofen [Ibuprofen IB] 200 mg Tablet 600 mg PO Q6H PRN Discharge Instructions Instructions: Contusion in Adults (ED) Additional Instructions: At this time x-ray showed no dislocation or broken bones. You suspect that you bruised right shoulder area. Apply ice, rest. Please take Tylenol or Ibuprofen with food every 4-6 hours as needed for pain and swelling. Follow up with primary care provider in 3-5 days. Return to ED sooner if any worsening or concerns. Increase oral fluids. Stand Alone Forms: Work Release Referrals: Darryn Moreno, [facility] [employer] [Primary Care Provider] - 2 weeks Discharge Data Discharge Date/Time-TO BE ENTERED AT DEPARTURE: 06/03/22 18:00 Medical Decision Making 22-year-old female presents to the ER with chief complaint of right shoulder pain status post a fall from approximately 2 feet which occurred yesterday while hunting. Patient reports she was climbing down a hill missed a step and fell backward onto her done which she was carrying on her back. She is complaining of right shoulder pain. Patient denies possibility of however I did order a urine pride, x-ray of right shoulder and Tylenol. Patient was given an ice pack in triage. Imaging Data Radiologic Study: Imaging: X-Ray Radiologist's impression: COMPARISON: US SOFT TISSUE EXTREMITY 01/18/2022 11:19 AM FINDINGS: Bones/joints: Normal. Soft tissues: Normal. IMPRESSION: 1. No acute findings. 2. No traumatic disruption. Sign Out No HPI General Mode of arrival: ambulatory . Date/Time Provider Initiated Documentation: 06/03/22 16:35 . Limitations to Documentation: no limitations . Information obtained by: RN notes reviewed and old records reviewed . HPI Narrative: 22-year-old female presents to the ER with chief complaint of right shoulder pain status post a fall from approximately 2 feet which occurred yesterday while hunting. Patient reports she was climbing down a hill missed a step and fell backward onto her done which she was carrying on her back. She is complaining of right shoulder pain. She does have posterior scapula pain with palpation. No ecchymosis, contusion swelling or obvious deformity. She has no other complaints or associated symptoms. She has a past medical history of anxiety and depression, insomnia. She did not take any Tylenol or ibuprofen prior to arrival. Related Data Home Medications Medication Instructions Recorded Confirmed fluticasone propionate 44 2 puff inhalation DAILY 11/11/14 06/03/22 mcg/actuation HFA aerosol inhaler (Flovent HFA) loratadine 10 mg capsule (Claritin 10 mg PO DAILY #90 caps 11/11/14 06/03/22 Liqui-Gel) acetaminophen 325 mg tablet 1 tab PO PRN PRN 06/13/15 06/03/22 (Tylenol) ibuprofen 200 mg tablet (Ibuprofen 600 mg PO Q6H PRN 09/10/19 06/03/22 IB) medroxyprogesterone 150 mg/mL 150 mg IM [id number] #1 mL 01/04/22 06/03/22 intramuscular syringe (Depo-Provera) fluticasone propionate 50 1 spray intranasal BID #16 grams 02/22/22 06/03/22 mcg/actuation nasal spray,suspension (Flonase Allergy Relief) clonidine HCl 0.1 mg tablet 0.1 mg PO BID PRN agitation #60 02/27/22 06/03/22 tabs fluoxetine 20 mg capsule 20 mg PO DAILY #90 caps 03/01/22 06/03/22 montelukast 10 mg tablet 10 mg PO DAILY #90 tabs 03/01/22 06/03/22 Previous Rx's Medication Instructions Recorded loratadine 10 mg capsule (Claritin 10 mg PO DAILY #90 caps 11/11/14 Liqui-Gel) medroxyprogesterone 150 mg/mL 150 mg IM [id number] #1 mL 01/04/22 intramuscular syringe (Depo-Provera) fluticasone propionate 50 1 spray intranasal BID #16 grams 02/22/22 mcg/actuation nasal spray,suspension (Flonase Allergy Relief) clonidine HCl 0.1 mg tablet 0.1 mg PO BID PRN agitation #60 02/27/22 tabs fluoxetine 20 mg capsule 20 mg PO DAILY #90 caps 03/01/22 montelukast 10 mg tablet 10 mg PO DAILY #90 tabs 03/01/22 Allergies Allergy/AdvReac Type Severity Reaction Status Date / Time Sulfa (Sulfonamide Allergy Severe Anaphylaxsi Unverified 06/03/22 16:41 Antibiotics) s sulfamethoxazole Allergy Severe Unverified 06/03/22 16:41 [From Bactrim] trimethoprim [From Bactrim] Allergy Severe Unverified 06/03/22 16:41 mold Allergy Intermediate Unverified 06/03/22 16:41 pneumococcal vaccine Allergy Mild Unverified 06/03/22 16:41 pollen extracts Allergy Mild Unverified 06/03/22 16:41 doxycycline AdvReac Severe Nausea Unverified 06/03/22 16:41 diphenhydramine AdvReac Unverified 06/03/22 16:41 [From Benadryl] General Stated Complaint: Nk/Back Pain JORGE L: 3 Review of Systems All systems reviewed & are unremarkable except as noted in HPI and below ENT Ears, Nose, Mouth, and Throat: Denies neck pain Musculoskeletal Musculoskeletal: Reports as per HPI, Reports back pain and Denies neck pain PFSH All Active Problems (Updated 06/03/22 @ 17:30 by Gianna Machado NP) Contusion of right shoulder region (Acute) Gastritis (Acute) Nausea & vomiting (Acute) Lump of skin (Acute) Allergies (Acute) Hallux valgus of left foot (Acute) Onychomycosis (Acute) Anxiety and depression (Chronic) Insomnia (Acute) Headache (Acute) Rash (Acute) COVID-19 (Acute) Genital herpes (Acute) HSV PCR blood test negative for HSV 1&2 09/08/2019 Allergic rhinitis due to pollen (Chronic 08/20/17) Medical History Asthma Astigmatism Incomplete miscarriage Surgical History H/O dilation and curettage History of surgical procedure (~09/2018) left middle finger S/P matrixectomy of toe of right foot Family History Mother Asthma Hypertension Father No problems noted. Sister No problems noted. Brother No problems noted. Maternal Grandfather , 50 Heart disease Maternal Grandmother No problems noted. Paternal Grandmother No problems noted. Social History Smoking/Tobacco Use Status: Never Smoking risk assessment performed?: Yes Alcohol Intake: current Alcohol Intake frequency: holidays/special occasions only Alcohol type: hard liquor Drug use: Never Substance use type: does not use Caregiver/Support person: No Household members: other Details: parents Housing: house Communication Needs: None Do you need help understanding health information?: Never Pets and animals: Yes Pets and animals: cat(s), dog(s) and farm animals Sexually active: No Do you think of yourself as: straight/heterosexual Current gender identity: female What is your relationship status?: refused to answer How often do you talk on the phone with friends or family?: once per week How often do you get together with friends or relatives?: never How often do you attend scientologist or mandaen services?: decline to answer Do you belong to any clubs or organized social groups?: no Panel score (0-1 are the most socially isolated patients): 0 What type of physical activity do you participate in: none Seatbelt use: always Helmet use: Yes Helmet use: always Drive intox or ride w/intox driver trainer: No Do you feel safe at home: Yes Do you feel safe in your relationship?: Yes Additional Social history: boyfriend at bedside. Female Reproductive History Menstrual control method: progesterone injection History History 1 Para 0 Hx # Term Pregnancies Multiple births Hx # Pregnancies Ectopic pregnancies AB induced Hx Number of Living Children AB spontaneous 1 Exam Narrative Exam Narrative: General: Well Developed, Awake and Alert, conversant. Skin: Warm and Dry HEENT: Head: No palpable deformities, Normocephalic Eyes: Pupils PERRLA, EOM's intact. No periorbital eccymosis or step off Ears: Canal patent. Tympanic membranes are clear . No armstrong's sign, no hemptymp arun. Nose/Face: Atraumatic. Facial bones nontender to palpation and stable with manipulation. Mouth/Throat: No intraoral trauma. Teeth and mandible are intact. Neck: No midline tenderness, no step off, no deformity to palpation of C-spine. Trachea midline. Chest: No surface trauma. Nontender without crepitus or deformity. Lungs clear to ausculatation bilaterally. Heart: RRR, no rubs, murmurs or gallop. Abdomen: No abrasions, ecchymosis, or surface trauma. Nondistended. Nontender to palpation no guarding, rebound, or rigidity. Pelvis: Nontender to palpation and stable to compression. Femoral pulses strong and equal Extremities: no surface trauma. Sensation intact. Peripheral pulses intact and equal. Neuro: ANO x4, GCS 15, cranial nerves II through XII intact. Motor and sensory exam nonfocal. Reflexes are symmetric. Extrem Right upper extremity: shoulder/upper arm Details: normal to inspection, tenderness Location: of the scapula and axillary nerve sensory function normal; no abrasions and no crepitus Course Vital Signs Vital signs: Vital Signs Temperature 37.0 C 06/03/22 16:37 Pulse 76 06/03/22 16:37 Respiratory Rate 16 06/03/22 16:37 Blood Pressure 119/68 06/03/22 16:37 Pulse Oximetry 100 06/03/22 16:37 Temperature 37.0 C 06/03/22 16:37 Temperature Source Temporal Artery Scan 06/03/22 16:37 Pulse 76 06/03/22 16:37 Respiratory Rate 16 06/03/22 16:37 Respiratory Effort Non-Labored 06/03/22 16:40 Blood Pressure 119/68 06/03/22 16:37 Blood Pressure Position Sitting 06/03/22 16:37 Pulse Oximetry 100 06/03/22 16:37 Oxygen Delivery Method Room Air 06/03/22 16:37 Oxygen Flow Rate 0 06/03/22 16:37 Pain Level 8 06/03/22 16:37
--- NOTE | 2022-06-03 16:45 | DI.RAD_ITS ---
Exam(s) XR SHOULDER RT COMPLETE 2+V EXAM: XR SHOULDER RT COMPLETE 2+V CLINICAL HISTORY: Fall, Shoulder pain TECHNIQUE: COMPARISON: No exams were available for comparison FINDINGS: Five views were obtained. There is no evidence of acute fracture or dislocation. IMPRESSION: RADIATION DOSE DELIVERED: Total DLP
[2022-06-03] MEDS: Acetaminophen 325 MG TAB 650 MG PO (16:52)
--- NOTE | 2022-06-03 17:21 | DI.VRAD_ITS ---
PROCEDURE INFORMATION: Exam: XR Right Shoulder Exam date and time: 06/03/2022 5:08 PM Age: 22 years old Clinical indication: Injury or trauma; Fall; Blunt trauma (contusions or hematomas); Shoulder; Right TECHNIQUE: Imaging protocol: Radiologic exam of the Right shoulder. Views: 2 or more views. COMPARISON: US SOFT TISSUE EXTREMITY 01/18/2022 11:19 AM FINDINGS: Bones/joints: Normal. Soft tissues: Normal. IMPRESSION: 1. No acute findings. 2. No traumatic disruption. Dictated and Authenticated by: Sy Traylor MD. Ordering:JOHN Katz MD
[2022-06-03 17:49] VITALS: BP 119/67; PULSE 72; RESP 16; TEMP 36.6; O2SAT 100
== END 2022-06-03 18:00 | disposition home or self-care (01) ==
PROVIDERS: Emergency Provider Registered Nurse Emergency; PCP Nurse Practitioner Family
DX: W18.39XA Other fall on same level, initial encounter; S40.011A Contusion of right shoulder, initial encounter
CPT/HCPCS: 81025; 99283; 73030

== ENCOUNTER 2022-06-11 07:35 | Emergency (ER) | payer MEDICAID, SELFPAY ==
[2022-06-11 07:41] VITALS: BP 122/68; PULSE 69; RESP 16; TEMP 37; O2SAT 100
--- NOTE | 2022-06-11 08:12 | ED.GENADUL_ITS ---
Discharge Plan Disposition Patient Disposition: Home Condition: Improving Discharge Details Clinical Impression: Pain, dental Primary Care Provider: Darryn Moreno ED Provider: Cresencio Virk Home Meds and New Rx's Prescriptions: New amoxicillin 875 mg tablet 875 mg PO BID Qty: 20 0RF Continued medroxyprogesterone [Depo-Provera] 150 mg/mL syringe 150 mg IM [id number] Qty: 1 3RF montelukast 10 mg tablet 10 mg PO DAILY Qty: 90 4RF fluoxetine 20 mg capsule 20 mg PO DAILY Qty: 90 4RF Claritin Liqui-Gel 10 mg capsule 10 mg PO DAILY Qty: 90 4RF fluticasone propionate [Flonase Allergy Relief] 50 mcg/actuation spray,gene pension 1 spray intranasal BID Qty: 16 4RF Rx Instructions: administer into each nostril clonidine HCl 0.1 mg tablet 0.1 mg PO BID MDD 2 tabs PRN (Reason: agitation) Qty: 60 1RF fluticasone propionate [Flovent HFA] 10.6 GM HFA aerosol inhaler 2 puff Inhalation DAILY acetaminophen [Tylenol] 325 MG tablet 1 tab PO PRN PRN ibuprofen [Ibuprofen IB] 200 mg Tablet 600 mg PO Q6H PRN Discharge Instructions Instructions: Toothache (ED) Additional Instructions: Amoxicillin as directed. [id number] medications such as Tylenol, Motrin, Orajel, etc. as directed for symptomatic control. Cool and/or warm compresses every 2 hours for 20 minutes. Salt water swish and spit as tolerated. Please watch for new or worsening symptoms and return to the ER for any concerns. Lastly, I have provided you with a dental list, please contact the dentist on this list tomorrow to set up prompt outpatient dental follow-up. Medical Decision Making 22-year-old female who denies significant past medical history reports left upper dental pain for the past few days, began after eating cheeze-its but denies any obvious injury or trauma. Denies fever, difficulty swallowing, etc. Clinically she appears well, nontoxic. Concern for early dental infection, would like to initiate amoxicillin. Patient is also agreeable to a dental block, dental block performed without difficulty she tolerated well. We will provide prescription for antibiotics and our local dental list to help expedite outpatient follow-up. Standard discharge and return precautions were provided. Patient understands, is agreeable to this plan, and has no additional questions or concerns upon discharge. This documentation was generated using [employer] dictation system, please disregard any oddities of phrase or misspellings. Medical Records Medical records reviewed: Yes I reviewed the patient's medical records. Sign Out No HPI General Mode of arrival: ambulatory . Date/Time Provider Initiated Documentation: 06/11/22 08:05 . Limitations to Documentation: no limitations . Information obtained by: patient . History of Present Illness 22 year old F presents to the emergency department with the chief complaint of L upper dental pain, described as moderate, with intensity rated at 7. Quality is described as aching, and is localized to the mouth. Patient reports no radiation. Patient started experiencing this day(s) (3) and it has been constant. No relieving factors improve symptom(s), No exacerbating factors reported . Patient notes no other symptoms.. Patient did receive the following treatments prior to arrival, NSAID Related Data Home Medications Medication Instructions Recorded Confirmed fluticasone propionate 44 2 puff inhalation DAILY 11/11/14 06/11/22 mcg/actuation HFA aerosol inhaler (Flovent HFA) loratadine 10 mg capsule (Claritin 10 mg PO DAILY #90 caps 11/11/14 06/11/22 Liqui-Gel) acetaminophen 325 mg tablet 1 tab PO PRN PRN 06/13/15 06/11/22 (Tylenol) ibuprofen 200 mg tablet (Ibuprofen 600 mg PO Q6H PRN 09/10/19 06/11/22 IB) medroxyprogesterone 150 mg/mL 150 mg IM [id number] #1 mL 01/04/22 06/11/22 intramuscular syringe (Depo-Provera) fluticasone propionate 50 1 spray intranasal BID #16 grams 02/22/22 06/03/22 mcg/actuation nasal spray,suspension (Flonase Allergy Relief) clonidine HCl 0.1 mg tablet 0.1 mg PO BID PRN agitation #60 02/27/22 06/11/22 tabs fluoxetine 20 mg capsule 20 mg PO DAILY #90 caps 03/01/22 06/11/22 montelukast 10 mg tablet 10 mg PO DAILY #90 tabs 03/01/22 06/11/22 amoxicillin 875 mg tablet 875 mg PO BID #20 tabs 06/11/22 Previous Rx's Medication Instructions Recorded loratadine 10 mg capsule (Claritin 10 mg PO DAILY #90 caps 11/11/14 Liqui-Gel) medroxyprogesterone 150 mg/mL 150 mg IM [id number] #1 mL 01/04/22 intramuscular syringe (Depo-Provera) fluticasone propionate 50 1 spray intranasal BID #16 grams 02/22/22 mcg/actuation nasal spray,suspension (Flonase Allergy Relief) clonidine HCl 0.1 mg tablet 0.1 mg PO BID PRN agitation #60 02/27/22 tabs fluoxetine 20 mg capsule 20 mg PO DAILY #90 caps 03/01/22 montelukast 10 mg tablet 10 mg PO DAILY #90 tabs 03/01/22 amoxicillin 875 mg tablet 875 mg PO BID #20 tabs 06/11/22 Allergies Allergy/AdvReac Type Severity Reaction Status Date / Time Sulfa (Sulfonamide Allergy Severe Anaphylaxsi Unverified 06/11/22 07:43 Antibiotics) s sulfamethoxazole Allergy Severe Unverified 06/11/22 07:43 [From Bactrim] trimethoprim [From Bactrim] Allergy Severe Unverified 06/11/22 07:43 mold Allergy Intermediate Unverified 06/11/22 07:43 pneumococcal vaccine Allergy Mild Unverified 06/11/22 07:43 pollen extracts Allergy Mild Unverified 06/11/22 07:43 doxycycline AdvReac Severe Nausea Unverified 06/11/22 07:43 diphenhydramine AdvReac Unverified 06/11/22 07:43 [From Benadryl] General Stated Complaint: DentalOral JORGE L: 4 Review of Systems Constitutional Constitutional: Denies fever(s) and Denies headache(s) ENT Ears, Nose, Mouth, and Throat: Denies otalgia and Denies headache(s) Integumentary/Breasts Skin/Breast: Denies rash Neurologic Neurologic: Denies headache(s) PFSH All Active Problems (Updated 06/11/22 @ 08:35 by EZEQUIEL New) Contusion of right shoulder region (Acute) Pain, dental (Acute) Gastritis (Acute) Nausea & vomiting (Acute) Lump of skin (Acute) Allergies (Acute) Hallux valgus of left foot (Acute) Onychomycosis (Acute) Anxiety and depression (Chronic) Insomnia (Acute) Headache (Acute) Rash (Acute) COVID-19 (Acute) Genital herpes (Acute) HSV PCR blood test negative for HSV 1&2 09/08/2019 Allergic rhinitis due to pollen (Chronic 08/20/17) Medical History Asthma Astigmatism Incomplete miscarriage Surgical History H/O dilation and curettage History of surgical procedure (~09/2018) left middle finger S/P matrixectomy of toe of right foot Family History Mother Asthma Hypertension Father No problems noted. Sister No problems noted. Brother No problems noted. Maternal Grandfather , 50 Heart disease Maternal Grandmother No problems noted. Paternal Grandmother No problems noted. Social History Smoking/Tobacco Use Status: Never Smoking risk assessment performed?: Yes Alcohol Intake: never Drug use: Never Substance use type: does not use Caregiver/Support person: No Household members: other Details: parents Housing: house Communication Needs: None Do you need help understanding health information?: Never Pets and animals: Yes Pets and animals: cat(s), dog(s) and farm animals Sexually active: No Do you think of yourself as: straight/heterosexual Current gender identity: female What is your relationship status?: refused to answer How often do you talk on the phone with friends or family?: once per week How often do you get together with friends or relatives?: never How often do you attend latter-day or bahai services?: decline to answer Do you belong to any clubs or organized social groups?: no Panel score (0-1 are the most socially isolated patients): 0 What type of physical activity do you participate in: none Seatbelt use: always Helmet use: Yes Helmet use: always Drive intox 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 Female Reproductive History Menstrual control method: progesterone injection History History 1 Para 0 Hx # Term Pregnancies Multiple births Hx # Pregnancies Ectopic pregnancies AB induced Hx Number of Living Children AB spontaneous 1 Exam Const General: cooperative, healthy appearing, comfortable and no acute distress Orientation: alert and awake [facility] Head: normal to inspection, normocephalic and atraumatic Ears: external ears normal, TM's normal bilaterally and EAC's normal General nose exam: external nose normal Face and sinus: normal facial exam Mouth: oral mucosae normal and moist mucous membranes Teeth and gingiva: fair dentition Teeth image: 1. Patient with diffuse mild discomfort tooth 10 through 14 worse over tooth 10. No obvious dental injury, abscess, etc. identified. Airway is patent. No trismus. Throat: posterior oropharynx normal Eyes General: appearance normal, both eyes and all related structures Conjunctivae: conjunctivae normal Neck Neck: normal visual inspection, full ROM, no lymphadenopathy, no meningeal signs, trachea midline, supple and nontender Resp Effort & Inspection: normal respiratory effort and able to speak in complete sentences Skin General skin exam: no rashes or lesions noted Neuro General: patient alert, patient awake, moves all extremities and no focal motor deficits Cognition: normal cognition Speech: speech normal Gait: normal gait Sensory Exam: no sensory deficits noted Psych Appearance: grossly normal Mental Status: mental status grossly normal Course Vital Signs Vital signs: Vital Signs Temperature 37.0 C 06/11/22 07:41 Pulse 69 06/11/22 07:41 Respiratory Rate 16 06/11/22 07:41 Blood Pressure 122/68 06/11/22 07:41 Pulse Oximetry 100 06/11/22 07:41 Temperature 37.0 C 06/11/22 07:41 Temperature Source Temporal Artery Scan 06/11/22 07:41 Pulse 69 06/11/22 07:41 Respiratory Rate 16 06/11/22 07:41 Respiratory Effort Non-Labored 06/11/22 07:45 Blood Pressure 122/68 06/11/22 07:41 Blood Pressure Position Sitting 06/11/22 07:41 Pulse Oximetry 100 06/11/22 07:41 Oxygen Delivery Method Room Air 06/11/22 07:41 Oxygen Flow Rate 0 06/11/22 07:41 Procedures Nerve Block Nerve Block 1: Time out performed: Yes Local Anesthetic: Lidocaine 1%, Bupivicaine 0.5% and other anesthetic ([id number] mixture) Amount of anesthesia used (mL): 3 Side: left Intraoral Nerve Block: infraorbital Procedure Successful: Yes Patient Tolerated Procedure: well and no complications Complications: none
[2022-06-11] MEDS: Lidocaine 1% Multi-Dose 20 ML VIAL (08:45)
[2022-06-11] MEDS: Amoxicillin 875 MG TAB PO (08:45)
[2022-06-11 20:40] VITALS: BP 120/64; PULSE 61; TEMP 36.6; O2SAT 100
== END 2022-06-11 08:54 | disposition home or self-care (01) ==
PROVIDERS: Emergency Provider Physician Assistant; PCP Nurse Practitioner Family
DX: K08.89 Other specified disorders of teeth and supporting structures (principal)
CPT/HCPCS: 64400; J3490

== ENCOUNTER 2022-06-11 18:18 | Emergency (ER) | payer MEDICAID, SELFPAY ==
[2022-06-11 18:21] VITALS: BP 127/77; PULSE 75; RESP 16; TEMP 36.8; O2SAT 100
--- NOTE | 2022-06-11 19:29 | ED.GENADUL_ITS ---
Discharge Plan Disposition Patient Disposition: Home Condition: Improving Discharge Details Chief Complaint: Nausea/Vomit/Diar Clinical Impression: Nausea & vomiting Primary Care Provider: Darryn Moreno ED Provider: Jake Stroud Home Meds and New Rx's Prescriptions: Continued medroxyprogesterone [Depo-Provera] 150 mg/mL syringe 150 mg IM [id number] Qty: 1 3RF montelukast 10 mg tablet 10 mg PO DAILY Qty: 90 4RF fluoxetine 20 mg capsule 20 mg PO DAILY Qty: 90 4RF Claritin Liqui-Gel 10 mg capsule 10 mg PO DAILY Qty: 90 4RF fluticasone propionate [Flonase Allergy Relief] 50 mcg/actuation spray,suspension 1 spray intranasal BID Qty: 16 4RF Rx Instructions: administer into each nostril clonidine HCl 0.1 mg tablet 0.1 mg PO BID MDD 2 tabs PRN (Reason: agitation) Qty: 60 1RF fluticasone propionate [Flovent HFA] 10.6 GM HFA aerosol inhaler 2 puff Inhalation DAILY acetaminophen [Tylenol] 325 MG tablet 1 tab PO PRN PRN amoxicillin 875 mg tablet 875 mg PO BID Qty: 20 0RF ibuprofen [Ibuprofen IB] 200 mg Tablet 600 mg PO Q6H PRN Discharge Instructions Instructions: Acute Nausea and Vomiting (ED) Additional Instructions: Continue your routine medications as previously prescribed. Follow-up with dentistry tomorrow as you have planned. Medical Decision Making <Ken Gonzáles MD - Last Filed: 06/11/22 19:42> This is a 22-year-old female who was seen in the ER earlier today for odontalgia and given amoxicillin and a dental block. She states following this she devel oped nausea and vomiting, was seen at another ER where she was given Zofran. She states she returned to home and had persistent nausea and vomiting and been intolerant to liquids and solids by mouth. States her dental pain has been improving and she has plans to follow-up with dentistry tomorrow. On exam she is fairly well-appearing but demonstrates mild diffuse tenderness in her abdomen. Likely this is gastroenteritis. Screening laboratories obtained and IV access established. Patient given fluid bolus, Ativan for its anxiolysis and antiemetic properties, as well as Toradol. As the patient presented just prior to change of shift I will sign her out to Dr. Stroud. Please see his note regarding final impression and disposition. Sign Out Yes <Jake Stroud MD - Last Filed: 06/11/22 20:23> This is a 22-year-old female who was seen in the ER earlier today for odontalgia and given amoxicillin and a dental block. She states following this she developed nausea and vomiting, was seen at another ER where she was given Zofran. She states she returned to home and had persistent nausea and vomiting and been intolerant to liquids and solids by mouth. States her dental pain has been improving and she has plans to follow-up with dentistry tomorrow. On exam she is fairly well-appearing but demonstrates mild diffuse tenderness in her abdomen. Likely this is gastroenteritis. Screening laboratories obtained and IV access established. Patient given fluid bolus, Ativan for its anxiolysis and antiemetic properties, as well as Toradol. As the patient presented just prior to change of shift I will sign her out to Dr. Stroud. Please see his note regarding final impression and disposition. 20: 22 patient resting comfortably no vomiting telemetry after fluids. Will give to go Rx of sublingual Zofran for tonight she has Zofran at home tomorrow. Home care instructions return precautions given HPI <Ken Goználes MD - Last Filed: 06/11/22 19:42> General Mode of arrival: ambulatory . Date/Time Provider Initiated Documentation: 06/11/22 18:25 . Limitations to Documentation: no limitations . Information obtained by: patient . History of Present Illness 22 year old F presents to the emergency department with the chief complaint of Nausea and vo miting, described as moderate and similar to prior episodes, Quality is described as dull, and is localized to the abdomen. Patient reports no radiation. Patient started experiencing this hour(s) and it has been intermittent. No relieving factors improve symptom(s), Eating worsens symptoms . Patient notes denies fever/chills and headaches. Patient did receive the following treatments prior to arrival, other (Patient had taken Zofran and had been started on amoxicillin) Related Data Home Medications Medication Instructions Recorded Confirmed fluticasone propionate 44 2 puff inhalation DAILY 11/11/14 06/11/22 mcg/actuation HFA aerosol inhaler (Flovent HFA) loratadine 10 mg capsule (Claritin 10 mg PO DAILY #90 caps 11/11/14 06/11/22 Liqui-Gel) acetaminophen 325 mg tablet 1 tab PO PRN PRN 06/13/15 06/11/22 (Tylenol) ibuprofen 200 mg tablet (Ibuprofen 600 mg PO Q6H PRN 09/10/19 06/11/22 IB) medroxyprogesterone 150 mg/mL 150 mg IM [id number] #1 mL 01/04/22 06/11/22 intramuscular syringe (Depo-Provera) fluticasone propionate 50 1 spray intranasal BID #16 grams 02/22/22 06/11/22 mcg/actuation nasal spray,suspension (Flonase Allergy Relief) clonidine HCl 0.1 mg tablet 0.1 mg PO BID PRN agitation #60 02/27/22 06/11/22 tabs fluoxetine 20 mg capsule 20 mg PO DAILY #90 caps 03/01/22 06/11/22 montelukast 10 mg tablet 10 mg PO DAILY #90 tabs 03/01/22 06/11/22 amoxicillin 875 mg tablet 875 mg PO BID #20 tabs 06/11/22 06/11/22 Previous Rx's Medication Instructions Recorded loratadine 10 mg capsule (Claritin 10 mg PO DAILY #90 caps 11/11/14 Liqui-Gel) medroxyprogesterone 150 mg/mL 150 mg IM [id number] #1 mL 01/04/22 intramuscular syringe (Depo-Provera) fluticasone propionate 50 1 spray intranasal BID #16 grams 02/22/22 mcg/actuation nasal spray,suspension (Flonase Allergy Relief) clonidine HCl 0.1 mg tablet 0.1 mg PO BID PRN agitation #60 02/27/22 tabs fluoxetine 20 mg capsule 20 mg PO DAILY #90 caps 03/01/22 montelukast 10 mg tablet 10 mg PO DAILY #90 tabs 03/01/22 amoxicillin 875 mg tablet 875 mg PO BID #20 tabs 06/11/22 Allergies Allergy/AdvReac Type Severity Reaction Status Date / Time Sulfa (Sulfonamide Allergy Severe Anaphylaxsi Unverified 06/11/22 18:24 Antibiotics) s sulfamethoxazole Allergy Severe Unverified 06/11/22 18:24 [From Bactrim] trimethoprim [From Bactrim] Allergy Severe Unverified 06/11/22 18:24 mold Allergy Intermediate Unverified 06/11/22 18:24 pneumococcal vaccine Allergy Mild Unverified 06/11/22 18:24 pollen extracts Allergy Mild Unverified 06/11/22 18:24 doxycycline AdvReac Severe Nausea Unverified 06/11/22 18:24 diphenhydramine AdvReac Unverified 06/11/22 18:24 [From Benadryl] General Stated Complaint: Nausea/Vomit/Diar JORGE L: 3 Review of Systems <Ken Gonzáles MD - Last Filed: 06/11/22 19:42> Narrative: 7 systems reviewed and otherwise negative PFSH <Ken Gonzáles MD - Last Filed: 06/11/22 19:42> All Active Problems (Updated 06/11/22 @ 20:22 by Jake Stroud MD) Contusion of right shoulder region (Acute) Pain, dental (Acute) Gastritis (Acute) Nausea & vomiting (Acute) Lump of skin (Acute) Allergies (Acute) Hallux valgus of left foot (Acute) Onychomycosis (Acute) Anxiety and depression (Chronic) Insomnia (Acute) Headache (Acute) Rash (Acute) COVID-19 (Acute) Genital herpes (Acute) HSV PCR blood test negative for HSV 1&2 09/08/2019 Allergic rhinitis due to pollen (Chronic 08/20/17) Medical History Asthma Astigmatism Incomplete miscarriage Surgical History H/O dilation and curettage History of surgical procedure (~09/2018) left middle finger S/P matrixectomy of toe of right foot Family History Mother Asthma Hypertension Father No problems noted. Sister No problems noted. Brother No problems noted. Maternal Grandfather , 50 Heart disease Maternal Grandmother No problems noted. Paternal Grandmother No problems noted. Social History Smoking/Tobacco Use Status: Never Smoking risk assessment performed?: Yes Alcohol Intake: never Drug use: Never Substance use type: does not use Caregiver/Support person: No Household members: other Details: parents Housing: house Communication Needs: None Do you need help understanding health information?: Never Pets and animals: Yes Pets and animals: cat(s), dog(s) and farm animals Sexually active: No Do you think of yourself as: straight/heterosexual Current gender identity: female What is your relationship status?: refused to answer How often do you talk on the phone with friends or family?: once per week How often do you get together with friends or relatives?: never How often do you attend anabaptist or sikhism services?: decline to answer Do you belong to any clubs or organized social groups?: no Panel score (0-1 are the most socially isolated patients): 0 What type of physical activity do you participate in: none Seatbelt use: always Helmet use: Yes Helmet use: always Drive intox 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 Female Reproductive History Menstrual control method: progesterone injection History History 1 Para 0 Hx # Term Pregnancies Multiple births Hx # Pregnancies Ectopic pregnancies AB induced Hx Number of Living Children AB spontaneous 1 Exam <Ken Gonzáles MD - Last Filed: 06/11/22 19:42> Narrative Exam Narrative: GEN: awake, alert, oriented 3. Pleasant, well groomed, interactive. HEAD: Normocephalic, atraumatic ENT: Mucous membranes moist, oropharynx unremarkable, she has mild tenderness at the left upper lateral incisor, no significant fluctuance appreciated, External ear exam unremarkable EYES: PERRL, EOMI NECK: Full ROM, no SUHA, no menigismus CHEST/RESP: Nontender, clear to auscultation bilateral, no wheeze/rhonchi/rales CARDIOVASCULAR: RRR, no murmur, rub domitila. 2+ Rad pulse bilateral ABDOMEN: Soft, tender in the abdomen without rebound or guarding, no mass. +Bowel sounds EXT: Full ROM, no edema, no rash Neuro: Grossly normal neurologic exam, conversant, interactive. Psych: Speech fluent, thoughts congruent, affect anxious Course <Ken Gonzáles MD - Last Filed: 06/11/22 19:42> Vital Signs Vital signs: Vital Signs Temperature 36.8 C 06/11/22 18:21 Pulse 75 06/11/22 18:21 Respiratory Rate 16 06/11/22 18:21 Blood Pressure 127/77 06/11/22 18:21 Pulse Oximetry 100 06/11/22 18:21 Temperature 36.8 C 06/11/22 18:21 Pulse 75 06/11/22 18:21 Respiratory Rate 16 06/11/22 18:21 Respiratory Effort Non-Labored 06/11/22 18:24 Blood Pressure 127/77 06/11/22 18:21 Blood Pressure Position Sitting 06/11/22 18:21 Pulse Oximetry 100 06/11/22 18:21 Oxygen Delivery Method Room Air 06/11/22 18:21 Oxygen Flow Rate 0 06/11/22 18:21 Sign Out <Ken Gonzáles MD - Last Filed: 06/11/22 19:42> Sign Out Data: Sign Out Comment: N/V, followup labs, response to IVF/meds Last updated by Ken Gonzáles MD at 06/11/22 19:33
[2022-06-11] MEDS: Normal Saline Flush 10 ML SYR IVP (19:35)
[2022-06-11] MEDS: Normal Saline 1,000 ML 1000 ML IV (19:40)
[2022-06-11] MEDS: Ondansetron 4 MG/2 ML VIAL IVP (19:40)
[2022-06-11] MEDS: Ketorolac 15 MG/ML VIAL IVP (19:43)
[2022-06-11] MEDS: LORazepam 2 MG/ML VIAL 0.5 MG IVP (19:45)
[2022-06-11 19:53] LABS: Abs Immature Grans 0.15 10^3/uL (0.0-0.06); Absolute Basophil Count 0.05 10^3/uL (0.0-0.2); Absolute Neutrophil Count 11.19 10^3/uL (1.2-6.7); Basophils % 0.4; HCT 38.8 % (36.0-46.0); HGB 13.4 g/dL (11.2-15.7); Immature Grans % 1.2; Lymphocytes % 7.8; MCH 29.1 pg (27.0-33.0); MCHC 34.5 % (32.0-36.0); MCV 84 fL (80-95); MPV 9.8 fL (8.0-11.0); Monocytes % 4.6; Platelet Count 330 10^3/uL (130-400); RDW 11.7 % (11.7-14.6); RDW-SD 35.7 fL; WBC 13.01 10^3/uL (4.4-10.8)
[2022-06-11 19:54] LABS: Absolute Lymphocyte Count 1.01 10^3/uL (1.2-3.4)
[2022-06-11 19:57] LABS: ALT 15 U/L (14-59); AST 15 U/L (15-37); Albumin 4.3 g/dL (3.4-5.0); Alkaline Phosphatase 50 U/L (46-116); Anion Gap 8.6 mmol/L (3-11); BUN 12 mg/dL (7-18); Bilirubin, Total 0.5 mg/dL (0.2-1.0); CO2 26.4 mmol/L (21.0-32.0); CREATININE 0.9 mg/dL (0.55-1.02); Calcium 9.2 mg/dL (8.5-10.1); Chloride 104 mmol/L (98-107); Glucose 91 mg/dL (74-106); Potassium 3.6 mmol/L (3.5-5.1); Sodium 139 mmol/L (136-145); Total Protein 7.9 g/dL (6.4-8.2)
[2022-06-11] MEDS: Ondansetron O.D.T. 4 MG TABEF PO (20:34)
== END 2022-06-11 20:34 | disposition home or self-care (01) ==
PROVIDERS: Emergency Medicine; Emergency Provider Emergency Medicine; PCP Nurse Practitioner Family
DX: R11.2 Nausea with vomiting, unspecified (principal); K08.89 Other specified disorders of teeth and supporting structures; R10.817 Generalized abdominal tenderness; J45.909 Unspecified asthma, uncomplicated; Z86.16 Personal history of COVID-19; Z79.51 Long term (current) use of inhaled steroids
CPT/HCPCS: 36415; 80053; 96361; 96374; 96375; 99284; 85025; J1885; J2060; J2405

== ENCOUNTER 2022-07-19 10:51 | Emergency (ER) | payer MEDICAID, SELFPAY ==
[2022-07-19 10:58] VITALS: BP 116/66; PULSE 114; RESP 18; O2SAT 100
--- NOTE | 2022-07-19 11:08 | ED.GENADUL_ITS ---
Discharge Plan Disposition Patient Disposition: Home Condition: Stable Discharge Details Clinical Impression: Sinusitis Primary Care Provider: Darryn Moreno ED Provider: Pawan Mcdonald Home Meds and New Rx's Prescriptions: New amoxicillin-pot clavulanate 875-125 mg tablet 1 tab PO Q12H 7 Days Qty: 14 0RF Continued medroxyprogesterone [Depo-Provera] 150 mg/mL syringe 150 mg IM [id number] Qty: 1 3RF montelukast 10 mg tablet 10 mg PO DAILY Qty: 90 4RF fluoxetine 20 mg capsule 20 mg PO DAILY Qty: 90 4RF Claritin Liqui-Gel 10 mg capsule 10 mg PO DAILY Qty: 90 4RF fluticasone propionate [Flonase Allergy Relief] 50 mcg/actuation spray,suspension 1 spray intranasal BID Qty: 16 4RF Rx Instructions: administer into each nostril clonidine HCl 0.1 mg tablet 0.1 mg PO BID MDD 2 tabs PRN (Reason: agitation) Qty: 60 1RF fluticasone propionate [Flovent HFA] 10.6 GM HFA aerosol inhaler 2 puff Inhalation DAILY acetaminophen [Tylenol] 325 MG tablet 1 tab PO PRN PRN ibuprofen [Ibuprofen IB] 200 mg Tablet 600 mg PO Q6H PRN Discharge Instructions Additional Instructions: You may continue to take [id number] medication including Tylenol or Motrin as needed for pain discomfort or fever. If you develop any new or significant worsening of symptoms feel free to return the emergency department for reassessment otherwise take your antibiotics as prescribed and follow-up with your primary care provider if not improving in the next week. Stand Alone Forms: Work Release Referrals: Darryn Moreno, BORING MACHINE OPERATOR HORIZONTAL [Primary Care Provider] - 1 week (If not improving) Medical Decision Making Patient presenting to the emergency department for chief complaint of sinus pressure, headache, fever chills, sore throat, cough. She states last week she was diagnosed with influenza and had symptoms for about a week and then improved for a couple days and then over the last 48 hours or so has acutely worsened with return of fever chills body aches and worsening sinus pressure. She states cough is nonproductive and mostly dry. Physical exam does show sinus tenderness otherwise unremarkable examination. Patient was swabbed for COVID and influenza along with strep and all results were negative. Suspect acute bacterial sinusitis given double illness sign. We will place patient on Augmentin. After discussion of diagnosis and plan of care patient has no further needs, questions, or concerns and states clear understanding to return to the emergency department for any worsening symptoms. This documentation was generated using [employer] dictation system, please disregard any oddities of phrase or misspellings. Lab Data Lab results reviewed: Yes I reviewed the patient's lab results. HPI General Mode of arrival: ambulatory . Date/Time Provider Initiated Documentation: 07/19/22 10:53 . Limitations to Documentation: no limitations . Information obtained by: patient and RN notes reviewed . History of Present Illness 22 year old F presents to the emergency department with the chief complaint of Sinus pressure, cough, congestion, sore throat, described as moderate, with intensity rated at 8. Quality is described as aching, and is localized to the face. Patient started experiencing this week(s) (1) and it has been constant. No relieving factors improve symptom(s), No exacerbating factors reported . Patient notes fever/chills, headaches and malaise. Patient did receive the following treatments prior to arrival, NSAID Related Data Home Medications Medication Instructions Recorded Confirmed fluticasone propionate 44 2 puff inhalation DAILY 11/11/14 07/19/22 mcg/actuation HFA aerosol inhaler (Flovent HFA) loratadine 10 mg capsule (Claritin 10 mg PO DAILY #90 caps 11/11/14 07/19/22 Liqui-Gel) acetaminophen 325 mg tablet 1 tab PO PRN PRN 06/13/15 07/19/22 (Tylenol) ibuprofen 200 mg tablet (Ibuprofen 600 mg PO Q6H PRN 09/10/19 07/19/22 IB) medroxyprogesterone 150 mg/mL 150 mg IM [id number] #1 mL 01/04/22 07/19/22 intramuscular syringe (Depo-Provera) fluticasone propionate 50 1 spray intranasal BID #16 grams 02/22/22 07/19/22 mcg/actuation nasal spray,suspension (Flonase Allergy Relief) clonidine HCl 0.1 mg tablet 0.1 mg PO BID PRN agitation #60 02/27/22 07/19/22 tabs fluoxetine 20 mg capsule 20 mg PO DAILY #90 caps 03/01/22 07/19/22 montelukast 10 mg tablet 10 mg PO DAILY #90 tabs 03/01/22 07/19/22 amoxicillin 875 mg-potassium 1 tab PO Q12H 7 days #14 tabs 07/19/22 clavulanate 125 mg tablet Previous Rx's Medication Instructions Recorded loratadine 10 mg capsule (Claritin 10 mg PO DAILY #90 caps 11/11/14 Liqui-Gel) medroxyprogesterone 150 mg/mL 150 mg IM [id number] #1 mL 01/04/22 intramuscular syringe (Depo-Provera) fluticasone propionate 50 1 spray intranasal BID #16 grams 02/22/22 mcg/actuation nasal spray,suspension (Flonase Allergy Relief) clonidine HCl 0.1 mg tablet 0.1 mg PO BID PRN agitation #60 02/27/22 tabs fluoxetine 20 mg capsule 20 mg PO DAILY #90 caps 03/01/22 montelukast 10 mg tablet 10 mg PO DAILY #90 tabs 03/01/22 amoxicillin 875 mg-potassium 1 tab PO Q12H 7 days #14 tabs 07/19/22 clavulanate 125 mg tablet Allergies Allergy/AdvReac Type Severity Reaction Status Date / Time Sulfa (Sulfonamide Allergy Severe Anaphylaxsi Unverified 07/19/22 11:02 Antibiotics) s sulfamethoxazole Allergy Severe Unverified 07/19/22 11:02 [From Bactrim] trimethoprim [From Bactrim] Allergy Severe Unverified 07/19/22 11:02 mold Allergy Intermediate Unverified 07/19/22 11:02 pneumococcal vaccine Allergy Mild Unverified 07/19/22 11:02 pollen extracts Allergy Mild Unverified 07/19/22 11:02 doxycycline AdvReac Severe Nausea Unverified 07/19/22 11:02 diphenhydramine AdvReac Unverified 07/19/22 11:02 [From Benadryl] General Stated Complaint: Sorethroat JORGE L: 4 Review of Systems Constitutional Constitutional: Reports body ache(s), Reports chills, Reports fever(s), Reports headache(s) and Reports malaise Eyes Eyes: Denies eye discharge ENT Ears, Nose, Mouth, and Throat: Reports as per HPI, Denies ear discharge, Denies otalgia, Reports headache(s), Reports nasal congestion, Reports nasal discharge, Denies neck pain, Reports sinus pain, Reports sinus pressure, Reports sore throat and Denies throat swelling Cardiovascular Cardiovascular: Denies chest pain and Denies dyspnea Respiratory Respiratory: Reports cough and Denies dyspnea Gastrointestinal Gastrointestinal: Denies abdominal pain, Denies diarrhea, Denies nausea and Denies vomiting Musculoskeletal Musculoskeletal: Denies joint swelling and Denies neck pain Integumentary/Breasts Skin/Breast: Denies rash Neurologic Neurologic: Reports headache(s) Allergic/Immunologic Allergic/Immunologic: Denies throat swelling PFSH All Active Problems (Updated 07/19/22 @ 11:28 by Pawan Mcdonald NP) Sinusitis (Acute) Lump of skin (Acute) Allergies (Acute) Hallux valgus of left foot (Acute) Onychomycosis (Acute) Anxiety and depression (Chronic) Insomnia (Acute) Headache (Acute) Rash (Acute) COVID-19 (Acute) Genital herpes (Acute) HSV PCR blood test negative for HSV 1&2 09/08/2019 Allergic rhinitis due to pollen (Chronic 08/20/17) Medical History Asthma Astigmatism Incomplete miscarriage Surgical History H/O dilation and curettage History of surgical procedure (~09/2018) left middle finger S/P matrixectomy of toe of right foot Family History Mother Asthma Hypertension Father No problems noted. Sister No problems noted. Brother No problems noted. Maternal Grandfather , 50 Heart disease Maternal Grandmother No problems noted. Paternal Grandmother No problems noted. Social History Smoking/Tobacco Use Status: Never Smoking risk assessment performed?: Yes Alcohol Intake: never Drug use: Never Substance use type: does not use Caregiver/Support person: No Household members: other Details: parents Housing: house Communication Needs: None Do you need help understanding health information?: Never Pets and animals: Yes Pets and animals: cat(s), dog(s) and farm animals Sexually active: No Do you think of yourself as: straight/heterosexual Current gender identity: female What is your relationship status?: refused to answer How often do you talk on the phone with friends or family?: once per week How often do you get together with friends or relatives?: never How often do you attend methodist or denominational services?: decline to answer Do you belong to any clubs or organized social groups?: no Panel score (0-1 are the most socially isolated patients): 0 What type of physical activity do you participate in: none Seatbelt use: always Helmet use: Yes Helmet use: always Drive intox or ride w/intox over the road driver: No Do you feel safe at home: Yes Do you feel safe in your relationship?: Yes Additional Social history: boyfriend at bedside. Female Reproductive History Menstrual control method: progesterone injection History History 1 Para 0 Hx # Term Pregnancies Multiple births Hx # Pregnancies Ectopic pregnancies AB induced Hx Number of Living Children AB spontaneous 1 Exam Const General: cooperative, comfortable and no acute distress Orientation: alert and awake HENMT Head: normal to inspection, normocephalic and atraumatic Ears: hearing grossly normal bilaterally and TM's normal bilaterally General nose exam: external nose normal Face and sinus: no erythema and sinus tenderness maxillary Mouth: oral mucosae normal, no drooling, no muffled voice and no trismus Throat: posterior oropharynx normal, tonsils normal and uvula midline Neck Neck: normal visual inspection, full ROM, no lymphadenopathy, no meningeal signs, trachea midline and supple Resp Effort & Inspection: normal respiratory effort, able to speak in complete sentences and cough Quality of cough: dry Auscultation: clear to auscultation bilaterally Cardio Rate: regular rate Rhythm: regular rhythm Heart Sounds: S1 normal, S2 normal, normal S1 and S2, no click, no gallops, no murmurs and no rubs Skin General skin exam: no rashes or lesions noted and dry skin (warm) Neuro General: patient alert, patient awake, patient oriented x3, gait normal and moves all extremities Cognition: normal cognition Speech: speech normal Course Vital Signs Vital signs: Vital Signs Pulse 114 H 07/19/22 10:58 Respiratory Rate 18 07/19/22 10:58 Blood Pressure 116/66 07/19/22 10:58 Pulse Oximetry 100 07/19/22 10:58 Pulse 114 H 07/19/22 10:58 Respiratory Rate 18 07/19/22 10:58 Respiratory Effort 01/04/23 11:01 Blood Pressure 116/66 07/19/22 10:58 Blood Pressure Position Supine 07/19/22 10:58 Pulse Oximetry 100 07/19/22 10:58 Oxygen Delivery Method Room Air 07/19/22 10:58 Oxygen Flow Rate 0 07/19/22 10:58 Pain Level 9 07/19/22 10:58
[2022-07-19] MEDS: Amoxicillin 875/Clav. 125 TAB PO (11:40)
== END 2022-07-19 11:43 | disposition home or self-care (01) ==
PROVIDERS: Emergency Provider Nurse Practitioner Family; PCP Nurse Practitioner Family
DX: J01.80 Other acute sinusitis (principal)
CPT/HCPCS: 87880; 99283; 87081; 99284

== ENCOUNTER 2023-01-26 08:07 | Emergency (ER) | payer MEDICAID, SELFPAY ==
[2023-01-26 08:12] VITALS: BP 121/80; PULSE 82; RESP 18; TEMP 36.5; O2SAT 99
--- NOTE | 2023-01-26 08:23 | ED.GENADUL_ITS ---
Discharge Plan Disposition Patient Disposition: Home Condition: Improving Discharge Details Clinical Impression: Nausea vomiting and diarrhea Primary Care Provider: Darryn Moreno ED Provider: Pawan Mcdonald Home Meds and New Rx's Prescriptions: New ondansetron 4 mg tablet,disintegrating 4 mg PO Q8H PRN (Reason: nausea and vomiting) Qty: 6 0RF Continued medroxyprogesterone [Depo-Provera] 150 mg/mL syringe 150 mg IM [id number] Qty: 1 3RF montelukast 10 mg tablet 10 mg PO DAILY Qty: 90 4RF fluoxetine 20 mg capsule 20 mg PO DAILY Qty: 90 4RF Claritin Liqui-Gel 10 mg capsule 10 mg PO DAILY Qty: 90 4RF fluticasone propionate [Flonase Allergy Relief] 50 mcg/actuation spray,suspension 1 spray intranasal BID Qty: 16 4RF Rx Instructions: administer into each nostril clonidine HCl 0.1 mg tablet 0.1 mg PO BID MDD 2 tabs PRN (Reason: agitation) Qty: 60 1RF fluticasone propionate [Flovent HFA] 10.6 GM HFA aerosol inhaler 2 puff Inhalation DAILY acetaminophen [Tylenol] 325 MG tablet 1 tab PO PRN PRN ibuprofen [Ibuprofen IB] 200 mg Tablet 600 mg PO Q6H PRN Discharge Instructions Instructions: Acute Nausea and Vomiting (ED) Additional Instructions: At this time your labs look very reassuring and no worrisome findings are noted. It is very important that you stay well-hydrated and use the nausea medication as needed. You may slowly advance your diet as tolerated. If you develop any new or significant worsening of symptoms feel free to return the emergency department for reassessment as discussed. Referrals: Darryn Moreno, MACHINE WEDGER [Primary Care Provider] - (As needed for reassessment or if not improving) Discharge Data Discharge Date/Time-TO BE ENTERED AT DEPARTURE: 01/26/23 10:05 Medical Decision Making Patient presenting to the emergency department for chief complaint of nausea vomiting and diarrhea. She states that she was drinking heavily yesterday evening and this morning when she woke up started having vomiting. She states significant episodes of vomiting to the point that she cannot remember how many times she is thrown up. She denies any bad food intake urinary or vaginal symptoms. Physical exam shows stable vital signs, diffuse abdominal tenderness without rigidity guarding or focal findings no surgical or peritoneal findings noted. Normal active bowel sounds, otherwise unremarkable exam. Concern for acute alcohol intoxication with potential for pancreatitis or electrolyte abnormality secondary to vomiting and alcohol intake. Will check labs and give IV fluids along with Zofran pending results. Do not feel that advanced imaging is needed at this time as I doubt any surgical abdominal pathology but will continue to monitor. Reviewed patient's labs and negative hCG , urinalysis, CMP, slightly elevated platelets but otherwise normal CBC, magnesium is normal, alcohol is negative and lipase is also within normal range. Reassessed patient and patient states that she is improving with her nausea. We will plan on allowing patient to finish fluids and will give small to go bottle of Zofran to help with further symptoms and patient to continue oral hydration at home. After discussion of diagnosis and plan of care patient has no further needs, questions, or concerns and states clear understanding to return to the emergency department for any worsening symptoms. This documentation was generated using [employer] dictation system, please disregard any oddities of phrase or misspellings. HPI General Mode of arrival: ambulatory . Date/Time Provider Initiated Documentation: 01/26/23 08:13 . Limitations to Documentation: no limitations . Information obtained by: patient and RN notes reviewed . History of Present Illness 23 year old F presents to the emergency department with the chief complaint of Nausea vomiting diarrhea, described as moderate and severe, with intensity rated at 8. Quality is described as aching, and is localized to the abdomen. Patient reports no radiation. Patient started experiencing this hour(s) (3) and it has been constant. No relieving factors improve symptom(s), Other factors that worsen symptoms (Excessive alcohol intake) . Patient notes malaise. Patient did receive the following treatments prior to arrival, none Related Data Home Medications Medication Instructions Recorded Confirmed fluticasone propionate 44 2 puff inhalation DAILY 11/11/14 01/26/23 mcg/actuation HFA aerosol inhaler (Flovent HFA) loratadine 10 mg capsule (Claritin 10 mg PO DAILY #90 caps 11/11/14 01/26/23 Liqui-Gel) acetaminophen 325 mg tablet 1 tab PO PRN PRN 06/13/15 01/26/23 (Tylenol) ibuprofen 200 mg tablet (Ibuprofen 600 mg PO Q6H PRN 09/10/19 01/26/23 IB) medroxyprogesterone 150 mg/mL 150 mg IM [id number] #1 mL 01/04/22 01/26/23 intramuscular syringe (Depo-Provera) fluticasone propionate 50 1 spray intranasal BID #16 grams 02/22/22 01/26/23 mcg/actuation nasal spray,suspension (Flonase Allergy Relief) clonidine HCl 0.1 mg tablet 0.1 mg PO BID PRN agitation #60 02/27/22 01/26/23 tabs fluoxetine 20 mg capsule 20 mg PO DAILY #90 caps 03/01/22 01/26/23 montelukast 10 mg tablet 10 mg PO DAILY #90 tabs 03/01/22 01/26/23 ondansetron 4 mg disintegrating 4 mg PO Q8H PRN nausea and 01/26/23 tablet vomiting #6 tabs Previous Rx's Medication Instructions Recorded loratadine 10 mg capsule (Claritin 10 mg PO DAILY #90 caps 11/11/14 Liqui-Gel) medroxyprogesterone 150 mg/mL 150 mg IM [id number] #1 mL 01/04/22 intramuscular syringe (Depo-Provera) fluticasone propionate 50 1 spray intranasal BID #16 grams 02/22/22 mcg/actuation nasal spray,suspension (Flonase Allergy Relief) clonidine HCl 0.1 mg tablet 0.1 mg PO BID PRN agitation #60 02/27/22 tabs fluoxetine 20 mg capsule 20 mg PO DAILY #90 caps 03/01/22 montelukast 10 mg tablet 10 mg PO DAILY #90 tabs 03/01/22 ondansetron 4 mg disintegrating 4 mg PO Q8H PRN nausea and 01/26/23 tablet vomiting #6 tabs Allergies Allergy/AdvReac Type Severity Reaction Status Date / Time Sulfa (Sulfonamide Allergy Severe Anaphylaxsi Unverified 01/26/23 08:20 Antibiotics) s sulfamethoxazole Allergy Severe Unverified 01/26/23 08:20 [From Bactrim] trimethoprim [From Bactrim] Allergy Severe Unverified 01/26/23 08:20 mold Allergy Intermediate Unverified 01/26/23 08:20 pneumococcal vaccine Allergy Mild Unverified 01/26/23 08:20 pollen extracts Allergy Mild Unverified 01/26/23 08:20 doxycycline AdvReac Severe Nausea Unverified 01/26/23 08:20 diphenhydramine AdvReac Unverified 01/26/23 08:20 [From Anthony] General Stated Complaint: Abd Prob JORGE L: 3 Review of Systems Constitutional Constitutional: Reports chills, Denies fever(s) and Reports poor appetite Cardiovascular Cardiovascular: Denies chest pain and Denies dyspnea Respiratory Respiratory: Denies cough and Denies dyspnea Gastrointestinal Gastrointestinal: Reports as per HPI, Reports abdominal pain, Denies melena, Denies change in bowel habits, Denies constipation, Reports diarrhea, Reports nausea and Reports vomiting Genitourinary Genitourinary: Denies hematuria, Denies urinary incontinence, Denies urinary he sitancy and Denies urinary urgency Integumentary/Breasts Skin/Breast: Denies rash PFSH All Active Problems (Updated 01/26/23 @ 09:17 by Pawan Mcdonald NP) Nausea vomiting and diarrhea (Acute) Lump of skin (Acute) Allergies (Acute) Hallux valgus of left foot (Acute) Onychomycosis (Acute) Anxiety and depression (Chronic) Insomnia (Acute) Headache (Acute) Rash (Acute) COVID-19 (Acute) Genital herpes (Acute) HSV PCR blood test negative for HSV 1&2 09/08/2019 Allergic rhinitis due to pollen (Chronic 08/20/17) Medical History Asthma Astigmatism Incomplete miscarriage Surgical History H/O dilation and curettage History of surgical procedure (~09/2018) left middle finger S/P matrixectomy of toe of right foot Family History Mother Asthma Hypertension Father No problems noted. Sister No problems noted. Brother No problems noted. Maternal Grandfather , 50 Heart disease Maternal Grandmother No problems noted. Paternal Grandmother No problems noted. Social History Smoking/Tobacco Use Status: Never Smoking risk assessment performed?: Yes Alcohol Intake: never Drug use: Never Substance use type: does not use Caregiver/Support person: No Household members: other Details: parents Housing: house Communication Needs: None Do you need help understanding health information?: Never Pets and animals: Yes Pets and animals: cat(s), dog(s) and farm animals Sexually active: No Do you think of yourself as: straight/heterosexual Current gender identity: female What is your relationship status?: refused to answer How often do you talk on the phone with friends or family?: once per week How often do you get together with friends or relatives?: never How often do you attend lutheran or gnosticist services?: decline to answer Do you belong to any clubs or organized social groups?: no Panel score (0-1 are the most socially isolated patients): 0 What type of physical activity do you participate in: none Seatbelt use: always Helmet use: Yes Helmet use: always Drive intox or ride w/intox sales warehouse driver: No Do you feel safe at home: Yes Do you feel safe in your relationship?: Yes Additional Social history: boyfriend at bedside. Female Reproductive History Menstrual control method: progesterone injection History History 1 Para 0 Hx # Term Pregnancies Multiple births Hx # Pregnancies Ectopic pregnancies AB induced Hx Number of Living Children AB spontaneous 1 Exam Const General: cooperative Orientation: alert, awake and oriented x3 Resp Effort & Inspection: normal respiratory effort and able to speak in complete sentences Auscultation: clear to auscultation bilaterally Cardio Rate: regular rate Rhythm: regular rhythm Heart Sounds: S1 normal and S2 normal GI Palpation: soft, no hepatosplenomegaly, not firm, no guarding, no masses, no pulsatile masses, not rigid, no splenomegaly and tender (Diffuse nonfocal) Auscultation: normal bowel sounds Back/Spine/Pelvis Back: no CVA tenderness Neuro General: patient alert, patient awake, patient oriented x3, gait normal and moves all extremities Course Vital Signs Vital signs: Vital Signs Temperature 36.5 C 01/26/23 08:12 Pulse 82 01/26/23 08:12 Respiratory Rate 18 01/26/23 08:12 Blood Pressure 121/80 01/26/23 08:12 Pulse Oximetry 99 01/26/23 08:12 Temperature 36.5 C 01/26/23 08:12 Temperature Source Oral 01/26/23 08:12 Pulse 82 01/26/23 08:12 Respiratory Rate 18 01/26/23 08:12 Blood Pressure 121/80 01/26/23 08:12 Blood Pressure Position Sitting 01/26/23 08:12 Pulse Oximetry 99 01/26/23 08:12 Oxygen Delivery Method Room Air 01/26/23 08:12 Oxygen Flow Rate 0 01/26/23 08:12
[2023-01-26 08:45] LABS: Abs Immature Grans 0.03 10^3/uL (0.0-0.06); Absolute Basophil Count 0.08 10^3/uL (0.0-0.2); Absolute Eosinophil Count 0.02 10^3/uL (0.0-0.7); Absolute Lymphocyte Count 2.06 10^3/uL (1.2-3.4); Absolute Monocyte Count 0.58 10^3/uL (0.1-0.8); Absolute Neutrophil Count 5.98 10^3/uL (1.2-6.7); Basophils % 0.9; Eosinophils % 0.2; HGB 12.6 g/dL (11.2-15.7); Immature Grans % 0.3; Lymphocytes % 23.5; MCH 27.4 pg (27.0-33.0); MCHC 32.3 % (32.0-36.0); MCV 85 fL (80-95); MPV 9.2 fL (8.0-11.0); Monocytes % 6.6; Neutrophils % 68.5; Platelet Count 419 10^3/uL (130-400); RDW 12.7 % (11.7-14.6); RDW-SD 38.8 fL; WBC 8.75 10^3/uL (4.4-10.8)
[2023-01-26] MEDS: Ondansetron 4 MG/2 ML VIAL IVP (08:49)
[2023-01-26] MEDS: Normal Saline 1,000 ML 1000 ML IV (08:50)
[2023-01-26 08:53] LABS: Bilirubin Small (Negative); Blood Negative (Negative); Clarity Clear (Clear); Glucose Negative (Negative); Ketones Negative (Negative); Leukocyte Esterase Negative (Negative); Nitrite Negative (Negative); Specific Gravity 1.015 (1.005-1.025); pH 8.5 (5-8)
[2023-01-26 09:03] LABS: ALT 22 U/L (14-59); AST 22 U/L (15-37); Albumin 4.6 g/dL (3.4-5.0); Alkaline Phosphatase 53 U/L (46-116); Anion Gap 9.6 mmol/L (3-11); BUN 8 mg/dL (7-18); Bilirubin, Total 0.5 mg/dL (0.2-1.0); CO2 27.4 mmol/L (21.0-32.0); CREATININE 0.9 mg/dL (0.55-1.02); Calcium 8.7 mg/dL (8.5-10.1); Chloride 107 mmol/L (98-107); Estimated GFR 92.12 (mL/min/1.73m2); Glucose 83 mg/dL (74-106); Lipase 16 U/L (16-77); Magnesium 2.2 mg/dL (1.8-2.4); Potassium 3.7 mmol/L (3.5-5.1); Sodium 144 mmol/L (136-145); Total Protein 8.2 g/dL (6.4-8.2)
[2023-01-26 09:11] LABS: Bacteria Rare HPF (Negative); C & S Indicated? No; Casts 0-2 Hyaline LPF (Negative); Crystals Negative HPF (Negative); Epithelial Cells Moderate HPF (Negative); Mucus Moderate (Negative); RBC Negative HPF (0-2); WBC Negative HPF (0-5)
[2023-01-26 09:14] LABS: ETHANOL BLOOD < 3.0 mg/dL (<10)
[2023-01-26 10:01] VITALS: BP 122/69; PULSE 60; RESP 16; O2SAT 100
== END 2023-01-26 10:05 | disposition home or self-care (01) ==
PROVIDERS: Emergency Provider Nurse Practitioner Family; PCP Nurse Practitioner Family
DX: R11.2 Nausea with vomiting, unspecified (principal); R19.7 Diarrhea, unspecified
CPT/HCPCS: 36415; 80053; 81025; 83690; 99283; 80320; 81003; 81015; 83735; 85025; J2405

== ENCOUNTER 2023-07-26 19:45 | Emergency (ER) | payer SELFPAY ==
[2023-07-26 19:50] VITALS: BP 127/76; PULSE 100; RESP 18; TEMP 36.5; O2SAT 100
--- NOTE | 2023-07-26 20:05 | W.ED.GENAD ---
HPI General Stated Complaint: Nausea/Vomit/Diar Mode of arrival: ambulatory. JORGE L: 3 Date/Time Provider Initiated Documentation: 07/26/23 19:54. Limitations to Documentation: no limitations. Information obtained by: RN notes reviewed and old records reviewed. HPI Narrative: 23-year-old female 3 para 0 who is approximately 5 weeks presents with diarrhea and intractable vomiting. She reports that she has had morning sickness with her other pregnancies however this 1 is different due to the diarrhea. She also reports chills. No sick contacts no fever. She is unable to keep anything down. She does see Dr. Edmond Toro STRIPING MACHINE OPERATOR whom she was supposed to have an appointment with today and she did not keep that appointment. She was told to take vitamin B6 and some nausea medication however she is unable to hold anything down at this time. She denies any vaginal bleeding vaginal discharge. She does have some lower suprapubic abdominal tenderness. Related Data Home Medications Medication Instructions Recorded Confirmed loratadine 10 mg capsule (Claritin 10 mg PO DAILY #90 caps 11/11/14 07/26/23 Liqui-Gel) acetaminophen 325 mg tablet 1 tab PO PRN PRN 06/13/15 07/26/23 (Tylenol) ibuprofen 200 mg tablet (Ibuprofen 600 mg PO Q6H PRN 09/10/19 07/26/23 IB) ondansetron 4 mg disintegrating 4 mg PO Q8H PRN nausea and 01/26/23 07/26/23 tablet vomiting #6 tabs clonidine HCl 0.1 mg tablet 0.1 mg PO BID PRN agitation #60 03/07/23 07/26/23 tabs fluoxetine 20 mg capsule 20 mg PO DAILY #90 caps 03/07/23 07/26/23 fluticasone propionate 44 2 puff inhalation DAILY #10.6 grams 03/07/23 07/26/23 mcg/actuation HFA aerosol inhaler (Flovent HFA) fluticasone propionate 50 1 spray intranasal BID #16 grams 03/07/23 07/26/23 mcg/actuation nasal spray,suspension (Flonase Allergy Relief) montelukast 10 mg tablet 10 mg PO DAILY #90 tabs 03/07/23 07/26/23 docosahexaenoic acid 200 mg 200 mg PO DAILY #90 caps 07/16/23 07/26/23 capsule ( DHA) ferrous gluconate 240 mg (27 mg 240 mg PO DAILY #90 tabs 07/20/23 07/26/23 iron) tablet (Ferate) folic acid 800 mcg tablet 0.8 mg PO DAILY #90 tabs 07/20/23 Previous Rx's Medication Instructions Recorded loratadine 10 mg capsule (Claritin 10 mg PO DAILY #90 caps 11/11/14 Liqui-Gel) ondansetron 4 mg disintegrating 4 mg PO Q8H PRN nausea and 01/26/23 tablet vomiting #6 tabs clonidine HCl 0.1 mg tablet 0.1 mg PO BID PRN agitation #60 03/07/23 tabs fluoxetine 20 mg capsule 20 mg PO DAILY #90 caps 03/07/23 fluticasone propionate 44 2 puff inhalation DAILY #10.6 grams 03/07/23 mcg/actuation HFA aerosol inhaler (Flovent HFA) fluticasone propionate 50 1 spray intranasal BID #16 grams 03/07/23 mcg/actuation nasal spray,suspension (Flonase Allergy Relief) montelukast 10 mg tablet 10 mg PO DAILY #90 tabs 03/07/23 docosahexaenoic acid 200 mg 200 mg PO DAILY #90 caps 07/16/23 capsule ( DHA) ferrous gluconate 240 mg (27 mg 240 mg PO DAILY #90 tabs 07/20/23 iron) tablet (Ferate) folic acid 800 mcg tablet 0.8 mg PO DAILY #90 tabs 07/20/23 Allergies Allergy/AdvReac Type Severity Reaction Status Date / Time Sulfa (Sulfonamide Allergy Severe Anaphylaxsi Unverified 07/26/23 20:32 Antibiotics) s sulfamethoxazole Allergy Severe Unverified 07/26/23 20:32 [From Bactrim] trimethoprim [From Bactrim] Allergy Severe Unverified 07/26/23 20:32 mold Allergy Intermediate Unverified 07/26/23 20:32 pneumococcal vaccine Allergy Mild Unverified 07/26/23 20:32 pollen extracts Allergy Mild Unverified 07/26/23 20:32 doxycycline AdvReac Severe Nausea Unverified 07/26/23 20:32 diphenhydramine AdvReac Unverified 07/26/23 20:32 [From Benadryl] Review of Systems All systems reviewed & are unremarkable except as noted in HPI and below Gastrointestinal Gastrointestinal: Reports as per HPI, Reports abdominal pain, Reports diarrhea, Reports nausea and Reports vomiting Genitourinary Genitourinary: Reports as per HPI, Denies abnormal vaginal bleeding and Denies vaginal discharge PFSH All Active Problems (Updated 07/26/23 @ 21:37 by Gianna Machado NP) Vomiting during (Acute) Skin lesion (Acute) left shoulder Lump of skin (Acute) Allergies (Acute) Hallux valgus of left foot (Acute) Onychomycosis (Acute) Anxiety and depression (Chronic) Insomnia (Acute) Headache (Acute) Rash (Acute) COVID-19 (Acute) Genital herpes (Acute) HSV PCR blood test negative for HSV 1&2 09/08/2019 Allergic rhinitis due to pollen (Chronic 08/20/17) Medical History Astigmatism Incomplete miscarriage Asthma Surgical History S/P matrixectomy of toe of right foot H/O dilation and curettage History of surgical procedure (~09/2018) left middle finger Family History Mother Asthma Hypertension Father No problems noted. Sister No problems noted. Brother No problems noted. Maternal Grandfather , 50 Heart disease Maternal Grandmother No problems noted. Paternal Grandmother No problems noted. Social History Smoking/Tobacco Use Status: Never Smoking risk assessment performed?: Yes Alcohol Intake: never Drug use: Never Substance use type: does not use Caregiver/Support person: No Household members: other Details: parents Housing: house Communication Needs: None Do you need help understanding health information?: Never Pets and animals: Yes Pets and animals: cat(s), dog(s) and farm animals Sexually active: No Do you think of yourself as: straight/heterosexual Current gender identity: female What is your relationship status?: refused to answer How often do you talk on the phone with friends or family?: once per week How often do you get together with friends or relatives?: never How often do you attend druze or yazidi services?: decline to answer Do you belong to any clubs or organized social groups?: no Panel score (0-1 are the most socially isolated patients): 0 What type of physical activity do you participate in: none Seatbelt use: always Helmet use: Yes Helmet use: always Drive intox or ride w/intox class a regional drivers: No Do you feel safe at home: Yes Do you feel safe in your relationship?: Yes Additional Social history: boyfriend at bedside. Female Reproductive History Menstrual control method: progesterone injection History History 1 Para 0 Hx # Term Pregnancies Multiple births Hx # Pregnancies Ectopic pregnancies AB induced Hx Number of Living Children AB spontaneous 1 Exam Narrative Exam Narrative: Constitutional: Alert and oriented x3. Appears stated age. Normal body habitus. Head: Normocephalic, no trauma. Eyes: Pupils PERRL, Red reflex noted, EOM's intact. Eyelids symmetrical without lesions, discharge, or swelling. ENT: Bilateral TM's WNL, External ear normal to inspection, no mastoid TTP, swelling, or erythema, Nasal turbinates WNL, no nasal discharge. Normal dentition, Posterior pharynx WNL, no exudate. Chest: RRR, Normal S1, S2, distal pulses intact. Resp: Lungs clear to auscultation bilaterally, no wheezes, rales, or rhonchi. Abdomen: Soft, non-distended, Normoactive bowel sounds all 4 quads. Musculoskeletal: Normal gait, 5/5 strength to all four extremities. Skin: No suspicious rashes or lesions. Capillary refill less than 2 sec. Neurologic: Cranial nerves II-XII intact. Alert and oriented x 3. Motor: No deficits noted. Sensory: Intact bilaterally all 4 extremities. Reflexes: DTR's intact bilaterally.. Hematologic/Lymphatic: No ecchymosis, no lymphadenopathy. Course Vital Signs Vital signs: Vital Signs Temperature 36.5 C 07/26/23 19:50 Pulse 100 H 07/26/23 19:50 Respiratory Rate 18 07/26/23 19:50 Blood Pressure 127/76 07/26/23 19:50 Pulse Oximetry 100 07/26/23 19:50 Temperature 36.5 C 07/26/23 19:50 Pulse 100 H 07/26/23 19:50 Respiratory Rate 18 07/26/23 19:50 Blood Pressure 127/76 07/26/23 19:50 Blood Pressure Position Sitting 07/26/23 19:50 Pulse Oximetry 100 07/26/23 19:50 Oxygen Delivery Method Room Air 07/26/23 19:50 Oxygen Flow Rate 0 07/26/23 19:50 Pain Level 5 07/26/23 19:50 Medical Decision Making 23-year-old female 3 para 0 who is approximately 5 weeks presents with diarrhea and intractable vomiting. She reports that she has had morning sickness with her other pregnancies however this 1 is different due to the diarrhea. She also reports chills. No sick contacts no fever. She is unable to keep anything down. She does see Dr. Edmond Toro STRIPING MACHINE OPERATOR whom she was supposed to have an appointment with today and she did not keep that appointment. She was told to take vitamin B6 and some nausea medication however she is unable to hold anything down at this time. She denies any vaginal bleeding vaginal discharge. She does have some lower suprapubic abdominal tenderness. PO challenge with timi deanna, is up to BR, reports feeling much better. Has received 1liter NS. Patient was given Zofran tablets to go and discussed home care and follow-up care she verbalized understanding. This text was generated using [employer] dictation system, please disregard any oddities of phrase or misspellings. Lab Data Lab results reviewed: Yes I reviewed the patient's lab results. Labs: Laboratory Tests Range/Units 07/26/23 07/26/23 20:18 21:10 WBC (4.4-10.8) 10^3/uL 13.13 H RBC (3.93-5.22) 10^6/uL 4.59 Hgb (11.2-15.7) g/dL 12.5 Hct (36.0-46.0) % 37.4 MCV (80-95) fL 82 MCH (27.0-33.0) pg 27.2 MCHC (32.0-36.0) % 33.4 RDW (11.7-14.6) % 12.4 Plt Count (130-400) 10^3/uL 435 H MPV (8.0-11.0) fL 9.0 Immature Gran % 0.7 Neutrophils % 76.5 Lymphocytes % 17.1 Monocytes % 5.2 Eosinophils % 0.0 Basophils % 0.5 Nucleated RBC % (0.0-0.3) % 0.0 Absolute Neutrophils (1.2-6.7) 10^3/uL 10.04 H Absolute Lymphocytes (1.2-3.4) 10^3/uL 2.25 Absolute Monocytes (0.1-0.8) 10^3/uL 0.68 Absolute Eosinophils (0.0-0.7) 10^3/uL 0.00 Absolute Basophils (0.0-0.2) 10^3/uL 0.07 Sodium (136-145) mmol/L 137 Potassium (3.5-5.1) mmol/L 3.9 Chloride (98-107) mmol/L 102 Carbon Dioxide (21.0-32.0) mmol/L 24.4 Anion Gap (3-11) mmol/L 10.6 BUN (7-18) mg/dL 10 Creatinine (0.55-1.02) mg/dL 0.8 Est GFR (CKD-EPI 2020) (mL/min/1.73m2) 106.11 Glucose (74-106) mg/dL 88 Calcium (8.5-10.1) mg/dL 9.6 Total Bilirubin (0.2-1.0) mg/dL 0.6 AST (15-37) U/L 12 L ALT (14-59) U/L 15 Alkaline Phosphatase (46-116) U/L 42 L Total Protein (6.4-8.2) g/dL 7.7 Albumin (3.4-5.0) g/dL 4.1 Beta HCG, Quant (1-3) mIU/mL [id number] H Urine Color (Yellow) Yellow Urine Clarity (Clear) Sl Cloudy Urine pH (5-8) 6.5 Ur Specific [place] (1.005-1.025) >= 1.030 H Urine Protein (Negative) mg/dL Trace H Urine Ketones (Negative) mg/dL 80 H Urine Blood (Negative) Negative Urine Nitrite (Negative) Negative Urine Bilirubin (Negative) Negative Urine Urobilinogen (Up to 0.2) mg/dL 0.2 Ur Leukocyte Esterase (Negative) Negative Urine Glucose (Negative) mg/dL Negative Patient ABO/Rh O Negative Quality:SDOH Health Related Social Needs: No Data to Display Discharge Plan Disposition Patient Disposition: Home Condition: Improving Discharge Details Clinical Impression: Vomiting during Primary Care Provider: Darryn Moreno ED Provider: Gianna Machado Home Meds and New Rx's Prescriptions: No Action DHA 200 mg capsule 200 mg PO DAILY Qty: 90 0RF clonidine HCl 0.1 mg tablet 0.1 mg PO BID MDD 2 tabs PRN (Reason: agitation) Qty: 60 1RF fluoxetine 20 mg capsule 20 mg PO DAILY Qty: 90 4RF fluticasone propionate [Flonase Allergy Relief] 50 mcg/actuation spray,suspension 1 spray intranasal BID Qty: 16 4RF Rx Instructions: administer into each nostril fluticasone propionate [Flovent HFA] 44 mcg/actuation HFA aerosol inhaler 2 puff Inhalation DAILY Qty: 10.6 3RF Claritin Liqui-Gel 10 mg capsule 10 mg PO DAILY Qty: 90 4RF montelukast 10 mg tablet 10 mg PO DAILY Qty: 90 4RF ferrous gluconate [Ferate] 240 mg (27 mg iron) tablet 240 mg PO DAILY Qty: 90 3RF folic acid 800 mcg tablet 0.8 mg PO DAILY Qty: 90 3RF acetaminophen [Tylenol] 325 MG tablet 1 tab PO PRN PRN ondansetron 4 mg tablet,disintegrating 4 mg PO Q8H PRN (Reason: nausea and vomiting) Qty: 6 0RF ibuprofen [Ibuprofen IB] 200 mg Tablet 600 mg PO Q6H PRN Discharge Instructions Instructions: Nausea and Vomiting in (ED) Additional Instructions: Your HCG level was over 53,000 which is consistent with 5-6 weeks of . No evidence of electrolyte abnormality. Please follow up with your STRIPING MACHINE OPERATOR as previously scheduled, or you may follow up with [facility] here at [facility] to discuss scheduling . Take the dissolvable zofran as directed. Follow up with primary care provider in 3-5 days. Return to ED sooner if any worsening or concerns. Increase oral fluids. Referrals: Montserrat Chapman MD [ [facility] STAFF PHYSICIAN] - Darryn Moreno, SUGAR LABORATORY ASSISTANT [Primary Care Provider] - Kathi Lake NP [NURSE PRACTITIONER] -
[2023-07-26] MEDS: Normal Saline Flush 10 ML SYR IVP (20:20)
[2023-07-26] MEDS: Normal Saline 1,000 ML 1000 ML IV (20:20)
[2023-07-26] MEDS: Metoclopramide 10 MG/2 ML VIAL 5 MG IVP (20:24)
[2023-07-26 20:27] LABS: Abs Immature Grans 0.09 10^3/uL (0.0-0.06); Absolute Basophil Count 0.07 10^3/uL (0.0-0.2); Absolute Monocyte Count 0.68 10^3/uL (0.1-0.8); Basophils % 0.5; HCT 37.4 % (36.0-46.0); HGB 12.5 g/dL (11.2-15.7); Immature Grans % 0.7; Lymphocytes % 17.1; MCH 27.2 pg (27.0-33.0); MCHC 33.4 % (32.0-36.0); MCV 82 fL (80-95); Monocytes % 5.2; Neutrophils % 76.5; Platelet Count 435 10^3/uL (130-400); RBC 4.59 10^6/uL (3.93-5.22); RDW 12.4 % (11.7-14.6); RDW-SD 36.7 fL; WBC 13.13 10^3/uL (4.4-10.8)
[2023-07-26 20:30] LABS: Absolute Lymphocyte Count 2.25 10^3/uL (1.2-3.4); Absolute Neutrophil Count 10.04 10^3/uL (1.2-6.7)
[2023-07-26 20:47] LABS: ALT 15 U/L (14-59); AST 12 U/L (15-37); Albumin 4.1 g/dL (3.4-5.0); Alkaline Phosphatase 42 U/L (46-116); Anion Gap 10.6 mmol/L (3-11); BUN 10 mg/dL (7-18); Bilirubin, Total 0.6 mg/dL (0.2-1.0); CO2 24.4 mmol/L (21.0-32.0); CREATININE 0.8 mg/dL (0.55-1.02); Calcium 9.6 mg/dL (8.5-10.1); Chloride 102 mmol/L (98-107); Estimated GFR 106.11 (mL/min/1.73m2); Glucose 88 mg/dL (74-106); Potassium 3.9 mmol/L (3.5-5.1); Sodium 137 mmol/L (136-145); Total Protein 7.7 g/dL (6.4-8.2)
[2023-07-26 21:22] LABS: Bilirubin Negative (Negative); Blood Negative (Negative); Clarity Sl Cloudy (Clear); Glucose Negative (Negative); Ketones 80 mg/dL (Negative); Leukocyte Esterase Negative (Negative); Nitrite Negative (Negative); Specific Gravity >= 1.030 (1.005-1.025); Urobilinogen 0.2 mg/dL (Up to 0.2); pH 6.5 (5-8)
[2023-07-26 21:30] LABS: WBC 0-2 HPF (0-5)
[2023-07-26 21:31] LABS: Bacteria Few HPF (Negative); C & S Indicated? No/Sq. Contamination; Casts Negative LPF (Negative); Crystals Negative HPF (Negative); Epithelial Cells Many HPF (Negative); Mucus Trace (Negative); RBC Negative HPF (0-2)
[2023-07-26] MEDS: Ondansetron O.D.T. 4 MG TABEF, 3 TABS/BTL PO (21:42)
[2023-07-26 21:44] LABS: *AMPHETAMINES SCREEN URINE Negative (Negative); *BARBITURATES SCREEN URINE Negative (Negative); *BENZODIAZEPINES SCREEN URINE Negative (Negative); Cannabinoids THC Positive (Negative); Cocaine Screen,Urine Negative (Negative); METHADONE URINE SCREEN Negative (Negative); OPIATES URINE SCREEN Negative (Negative); Tricyclic Antidepressants Negative (Negative)
== END 2023-07-26 21:43 | disposition home or self-care (01) ==
PROVIDERS: Emergency Provider Registered Nurse Emergency; PCP Nurse Practitioner Family
DX: O21.9 Vomiting of pregnancy, unspecified (principal); O99.611 Diseases of the digestive system complicating pregnancy, first trimester; R19.7 Diarrhea, unspecified; Z3A.01 Less than 8 weeks gestation of pregnancy
CPT/HCPCS: 80053; 80307; 86900; 86901; 96361; 96374; 99283; 81003; 81015; 84702; 85025; J2765

== ENCOUNTER 2023-09-10 10:10 | Emergency (ER) | payer SELFPAY ==
[2023-09-10 10:13] VITALS: BP 108/77; PULSE 85; RESP 18; TEMP 36.5; O2SAT 100
[2023-09-10] MEDS: Normal Saline 1,000 ML 1000 ML IV (10:36)
[2023-09-10 10:49] LABS: Anion Gap 12.2 mmol/L (3-11); BUN 6 mg/dL (7-18); CO2 24.8 mmol/L (21.0-32.0); CREATININE 0.7 mg/dL (0.55-1.02); Calcium 9.4 mg/dL (8.5-10.1); Chloride 102 mmol/L (98-107); Estimated GFR 124.55 (mL/min/1.73m2); Glucose 81 mg/dL (74-106); Potassium 3.3 mmol/L (3.5-5.1); Sodium 139 mmol/L (136-145)
[2023-09-10] MEDS: DEXTROSE 5%-0.9% SALINE 1,000 ML 125 ML IV (11:11)
[2023-09-10] MEDS: Promethazine 25 MG TAB PO (11:11)
[2023-09-10 13:03] LABS: Bilirubin Negative (Negative); Blood Negative (Negative); Clarity Sl Cloudy (Clear); Glucose Negative (Negative); Ketones >=160 mg/dL (Negative); Leukocyte Esterase Negative (Negative); Nitrite Negative (Negative); Specific Gravity 1.015 (1.005-1.025); Urobilinogen 0.2 mg/dL (Up to 0.2)
--- NOTE | 2023-09-10 14:51 | W.ED.GENAD ---
Discharge Plan Disposition Patient Disposition: Home Condition: Stable Discharge Details Clinical Impression: Vomiting affecting , Dehydration Primary Care Provider: Darryn Moreno ED Provider: Gualberto Guardado Home Meds and New Rx's Prescriptions: New doxylamine-pyridoxine (vit B6) [Diclegis] 10-10 mg tablet,delayed release (DR/EC) 1 tab PO DAILY Qty: 30 0RF promethazine 25 mg tablet 25 mg PO Q6H PRN (Reason: nausea and vomiting) Qty: 30 0RF No Action DHA 200 mg capsule 200 mg PO DAILY Qty: 90 0RF clonidine HCl 0.1 mg tablet 0.1 mg PO BID MDD 2 tabs PRN (Reason: agitation) Qty: 60 1RF fluoxetine 20 mg capsule 20 mg PO DAILY Qty: 90 4RF fluticasone propionate [Flonase Allergy Relief] 50 mcg/actuation spray,suspension 1 spray intranasal BID Qty: 16 4RF Rx Instructions: administer into each nostril fluticasone propionate [Flovent HFA] 44 mcg/actuation HFA aerosol inhaler 2 puff Inhalation DAILY Qty: 10.6 3RF Claritin Liqui-Gel 10 mg capsule 10 mg PO DAILY Qty: 90 4RF montelukast 10 mg tablet 10 mg PO DAILY Qty: 90 4RF ferrous gluconate [Ferate] 240 mg (27 mg iron) tablet 240 mg PO DAILY Qty: 90 3RF folic acid 800 mcg tablet 0.8 mg PO DAILY Qty: 90 3RF acetaminophen [Tylenol] 325 MG tablet 1 tab PO PRN PRN ondansetron 4 mg tablet,disintegrating 4 mg PO Q8H PRN (Reason: nausea and vomiting) Qty: 6 0RF Discharge Instructions Instructions: Dehydration (ED) Additional Instructions: Start medications as prescribed. Also try timi candy and other timi products. Eat small frequent meals and stay hydrated with electrolytes or Gatorade. Follow-up with your STRENGTH AND CONDITIONING COACH. HPI General Date/Time Provider Initiated Documentation: 09/10/23 10:12. Limitations to Documentation: no limitations. Information obtained by: patient. HPI Narrative: 23-year-old female G3, P0 presents for evaluation of vomiting. She is approximately 12 weeks , she has seen her STRENGTH AND CONDITIONING COACH and has a confirmed IUP. She has been taking Zofran for vomiting. She reports multiple episodes of vomiting for the last 2 days. Not really associated with diarrhea, but is having some irregular bowel movements. Denies any abdominal pain, denies any vaginal bleeding or discharge. Related Data Home Medications Medication Instructions Recorded Confirmed loratadine 10 mg capsule (Claritin 10 mg PO DAILY #90 caps 11/11/14 09/10/23 Liqui-Gel) acetaminophen 325 mg tablet 1 tab PO PRN PRN 06/13/15 09/10/23 (Tylenol) ondansetron 4 mg disintegrating 4 mg PO Q8H PRN nausea and 01/26/23 09/10/23 tablet vomiting #6 tabs clonidine HCl 0.1 mg tablet 0.1 mg PO BID PRN agitation #60 03/07/23 09/10/23 tabs fluoxetine 20 mg capsule 20 mg PO DAILY #90 caps 03/07/23 09/10/23 fluticasone propionate 44 2 puff inhalation DAILY #10.6 grams 03/07/23 09/10/23 mcg/actuation HFA aerosol inhaler (Flovent HFA) fluticasone propionate 50 1 spray intranasal BID #16 grams 03/07/23 09/10/23 mcg/actuation nasal spray,suspension (Flonase Allergy Relief) montelukast 10 mg tablet 10 mg PO DAILY #90 tabs 03/07/23 09/10/23 docosahexaenoic acid 200 mg 200 mg PO DAILY #90 caps 07/16/23 09/10/23 capsule ( DHA) ferrous gluconate 240 mg (27 mg 240 mg PO DAILY #90 tabs 07/20/23 09/10/23 iron) tablet (Ferate) folic acid 800 mcg tablet 0.8 mg PO DAILY #90 tabs 07/20/23 09/10/23 doxylamine 10 mg-pyridoxine (vit 1 tab PO DAILY #30 tabs 09/10/23 B6) 10 mg tablet,delayed release (Diclegis) promethazine 25 mg tablet 25 mg PO Q6H PRN nausea and 09/10/23 vomiting #30 tabs Previous Rx's Medication Instructions Recorded loratadine 10 mg capsule (Claritin 10 mg PO DAILY #90 caps 11/11/14 Liqui-Gel) ondansetron 4 mg disintegrating 4 mg PO Q8H PRN nausea and 01/26/23 tablet vomiting #6 tabs clonidine HCl 0.1 mg tablet 0.1 mg PO BID PRN agitation #60 03/07/23 tabs fluoxetine 20 mg capsule 20 mg PO DAILY #90 caps 03/07/23 fluticasone propionate 44 2 puff inhalation DAILY #10.6 grams 03/07/23 mcg/actuation HFA aerosol inhaler (Flovent HFA) fluticasone propionate 50 1 spray intranasal BID #16 grams 03/07/23 mcg/actuation nasal spray,suspension (Flonase Allergy Relief) montelukast 10 mg tablet 10 mg PO DAILY #90 tabs 03/07/23 docosahexaenoic acid 200 mg 200 mg PO DAILY #90 caps 07/16/23 capsule ( DHA) ferrous gluconate 240 mg (27 mg 240 mg PO DAILY #90 tabs 07/20/23 iron) tablet (Ferate) folic acid 800 mcg tablet 0.8 mg PO DAILY #90 tabs 07/20/23 doxylamine 10 mg-pyridoxine (vit 1 tab PO DAILY #30 tabs 09/10/23 B6) 10 mg tablet,delayed release (Diclegis) promethazine 25 mg tablet 25 mg PO Q6H PRN nausea and 09/10/23 vomiting #30 tabs Allergies Allergy/AdvReac Type Severity Reaction Status Date / Time Sulfa (Sulfonamide Allergy Severe Anaphylaxsi Unverified 09/10/23 11:24 Antibiotics) s sulfamethoxazole Allergy Severe Anaphylaxis Unverified 09/10/23 11:24 [From Bactrim] trimethoprim [From Bactrim] Allergy Severe Anaphylaxis Unverified 09/10/23 11:24 mold Allergy Intermediate Swelling/Ed Unverified 09/10/23 11:24 adrianna pneumococcal vaccine Allergy Mild Contraindic Unverified 09/10/23 11:24 ated pollen extracts Allergy Mild Wheezing Unverified 09/10/23 11:24 doxycycline AdvReac Severe Nausea Unverified 09/10/23 11:24 diphenhydramine AdvReac Contraindic Unverified 09/10/23 11:24 [From Benadryl] ated General Stated Complaint: Abd Prob JORGE L: 3 Exam Narrative Exam Narrative: Review of Systems: All systems reviewed & are unremarkable except as noted in HPI and below Well-developed, no acute distress NCAT PERRL, normal conjunctiva Dry mucous membranes RRR Unlabored respiratory effort Nondistended abdomen , nontender Extremities w/o deformity, no cyanosis, no edema No rashes or lesions. no focal neurologic deficits Appropriate mood and affect Course Vital Signs Vital signs: Vital Signs Temperature 36.5 C 09/10/23 10:13 Pulse 85 09/10/23 10:13 Respiratory Rate 18 09/10/23 10:13 Blood Pressure 108/77 09/10/23 10:13 Pulse Oximetry 100 09/10/23 10:13 Temperature 36.5 C 09/10/23 10:13 Temperature Source Tympanic 09/10/23 10:13 Pulse 85 09/10/23 10:13 Respiratory Rate 18 09/10/23 10:13 Respiratory Effort Normal 09/10/23 10:28 Blood Pressure 108/77 09/10/23 10:13 Blood Pressure Position Sitting 09/10/23 10:13 Pulse Oximetry 100 09/10/23 10:13 Oxygen Delivery Method Room Air 09/10/23 10:13 Oxygen Flow Rate 0 09/10/23 10:13 Pain Level 5 09/10/23 10:13 Lab/Test Results Lab/Test Results: Laboratory Tests Range/Units 09/10/23 09/10/23 10:25 12:52 Sodium (136-145) mmol/L 139 Potassium (3.5-5.1) mmol/L 3.3 L Chloride (98-107) mmol/L 102 Carbon Dioxide (21.0-32.0) mmol/L 24.8 Anion Gap (3-11) mmol/L 12.2 H BUN (7-18) mg/dL 6 L Creatinine (0.55-1.02) mg/dL 0.7 Est GFR (CKD-EPI 2020) (mL/min/1.73m2) 124.55 Glucose (74-106) mg/dL 81 Calcium (8.5-10.1) mg/dL 9.4 Urine Color (Yellow) Yellow Urine Clarity (Clear) Sl Cloudy Urine pH (5-8) 7.0 Ur Specific [place] (1.005-1.025) 1.015 Urine Protein (Neg-Trace) mg/dL Negative Urine Ketones (Negative) mg/dL >=160 H Urine Blood (Negative) Negative Urine Nitrite (Negative) Negative Urine Bilirubin (Negative) Negative Urine Urobilinogen (Up to 0.2) mg/dL 0.2 Ur Leukocyte Esterase (Negative) Negative Urine Glucose (Negative) mg/dL Negative Medical Decision Making Emergent evaluation of vomiting in early . Initial differential includes hyperemesis gravidarum, electrolyte derangement, dehydration. Plan for IV fluid resuscitation, will check lab work, will check urinalysis to evaluate for asymptomatic bacteriuria. At this time given the fact that she has a confirmed IUP, I do not feel that any additional imaging to evaluate for ectopic or other intra-abdominal process is indicated. Lab work reviewed. She has a slightly elevated anion gap, potassium slightly low but not significant. She has been resuscitated with IV fluids and is starting to feel much better. She is able to tolerate p.o. I will discharge her with a prescription for Phenergan and as well as Diflucan just. Return precautions advised. Close follow-up with PCP or STRENGTH AND CONDITIONING COACH recommended. Medical Records Medical records reviewed: Yes I reviewed the patient's medical records. Lab Data Lab results reviewed: Yes I reviewed the patient's lab results. Quality:SDOH Health Related Social Needs: No Data to Display [facility] All Active Problems Dehydration (Acute) Vomiting affecting (Acute) Skin lesion (Acute) left shoulder Lump of skin (Acute) Allergies (Acute) Hallux valgus of left foot (Acute) Onychomycosis (Acute) Anxiety and depression (Chronic) Insomnia (Acute) Headache (Acute) Rash (Acute) COVID-19 (Acute) Genital herpes (Acute) HSV PCR blood test negative for HSV 1&2 09/08/2019 Allergic rhinitis due to pollen (Chronic 08/20/17) Medical History Astigmatism Incomplete miscarriage Asthma Surgical History S/P matrixectomy of toe of right foot H/O dilation and curettage History of surgical procedure (~09/2018) left middle finger Family History Mother Asthma Hypertension Father No problems noted. Sister No problems noted. Brother No problems noted. Maternal Grandfather , 50 Heart disease Maternal Grandmother No problems noted. Paternal Grandmother No problems noted. Social History Smoking/Tobacco Use Status: Never Smoking risk assessment performed?: Yes Alcohol Intake: never Drug use: Never Substance use type: does not use Caregiver/Support person: No Household members: other Details: parents Housing: house Communication Needs: None Do you need help understanding health information?: Never Pets and animals: Yes Pets and animals: cat(s), dog(s) and farm animals Sexually active: No Do you think of yourself as: straight/heterosexual Current gender identity: female What is your relationship status?: refused to answer How often do you talk on the phone with friends or family?: once per week How often do you get together with friends or relatives?: never How often do you attend sabianism or evangelical services?: decline to answer Do you belong to any clubs or organized social groups?: no Panel score (0-1 are the most socially isolated patients): 0 What type of physical activity do you participate in: none Seatbelt use: always Helmet use: Yes Helmet use: always Drive intox or ride w/intox emergency vehicle driver: No Do you feel safe at home: Yes Do you feel safe in your relationship?: Yes Additional Social history: boyfriend at bedside. Female Reproductive History Menstrual control method: progesterone injection History History 1 Para 0 Hx # Term Pregnancies Multiple births Hx # Pregnancies Ectopic pregnancies AB induced Hx Number of Living Children AB spontaneous 1
== END 2023-09-10 14:06 | disposition home or self-care (01) ==
PROVIDERS: Emergency Provider Emergency Medicine; PCP Nurse Practitioner Family
DX: R11.2 Nausea with vomiting, unspecified (principal); E86.0 Dehydration; R10.31 Right lower quadrant pain; R10.32 Left lower quadrant pain; O21.9 Vomiting of pregnancy, unspecified
CPT/HCPCS: 80048; 96361; 96365; 96366; 99284; 81003; 99283; J7042

== ENCOUNTER 2023-09-21 16:29 | Emergency (ER) | payer MEDICAID, SELFPAY ==
[2023-09-21 16:34] VITALS: BP 126/75; PULSE 74; RESP 16; TEMP 36.6; O2SAT 100
--- NOTE | 2023-09-21 16:52 | ED.GENADUL_ITS ---
Discharge Plan Disposition Patient Disposition: Home Condition: Stable Discharge Details Clinical Impression: Vomiting affecting Primary Care Provider: Darryn Moreno ED Provider: Gianna Machado Home Meds and New Rx's Prescriptions: New metoclopramide HCl [Reglan] 5 mg tablet 5 mg PO QACHS PRN (Reason: nausea and vomiting) Qty: 20 0RF Rx Instructions: Take one tablet as needed for nausea and vomiting No Action DHA 200 mg capsule 200 mg PO DAILY Qty: 90 0RF clonidine HCl 0.1 mg tablet 0.1 mg PO BID MDD 2 tabs PRN (Reason: agitation) Qty: 60 1RF fluoxetine 20 mg capsule 20 mg PO DAILY Qty: 90 4RF fluticasone propionate [Flonase Allergy Relief] 50 mcg/actuation spray,suspension 1 spray intranasal BID Qty: 16 4RF Rx Instructions: administer into each nostril fluticasone propionate [Flovent HFA] 44 mcg/actuation HFA aerosol inhaler 2 puff Inhalation DAILY Qty: 10.6 3RF Claritin Liqui-Gel 10 mg capsule 10 mg PO DAILY Qty: 90 4RF montelukast 10 mg tablet 10 mg PO DAILY Qty: 90 4RF ferrous gluconate [Ferate] 240 mg (27 mg iron) tablet 240 mg PO DAILY Qty: 90 3RF folic acid 800 mcg tablet 0.8 mg PO DAILY Qty: 90 3RF acetaminophen [Tylenol] 325 MG tablet 1 tab PO PRN PRN ondansetron 4 mg tablet,disintegrating 4 mg PO Q8H PRN (Reason: nausea and vomiting) Qty: 6 0RF doxylamine-pyridoxine (vit B6) [Diclegis] 10-10 mg tablet,delayed release (DR/EC) 1 tab PO DAILY Qty: 30 0RF promethazine 25 mg tablet 25 mg PO Q6H PRN (Reason: nausea and vomiting) Qty: 30 0RF Discharge Instructions Instructions: Nausea and Vomiting in (ED) Additional Instructions: Try small frequent sips and meals. Try timi and lemon. Take the nausea medication as directed before meals and at bedtime. Follow up with primary care provider in 3-5 days. Return to ED sooner if any worsening or concerns. Increase oral fluids. Referrals: Darryn Moreno, COUNSELOR EDUCATION PROFESSOR [Primary Care Provider] - 3 days HPI General Mode of arrival: ambulatory . Date/Time Provider Initiated Documentation: 09/21/23 16:31 . Limitations to Documentation: no limitations . Information obtained by: patient, RN notes reviewed and old records reviewed . HPI Narrative: 23 year old female presents to the ED with cc nausea, vomiting and diarrhea which began yesterday. She reports some mild abdominal cramping, denies any vaginal discharge or bleeding, denies any dysuria. She does report that her mom had similar symptoms. She is 3 P0 approximately 14 weeks . Related Data Home Medications Medication Instructions Recorded Confirmed loratadine 10 mg capsule (Claritin 10 mg PO DAILY #90 caps 11/11/14 09/21/23 Liqui-Gel) acetaminophen 325 mg tablet 1 tab PO PRN PRN 06/13/15 09/21/23 (Tylenol) ondansetron 4 mg disintegrating 4 mg PO Q8H PRN nausea and 01/26/23 09/21/23 tablet vomiting #6 tabs clonidine HCl 0.1 mg tablet 0.1 mg PO BID PRN agitation #60 03/07/23 09/21/23 tabs fluoxetine 20 mg capsule 20 mg PO DAILY #90 caps 03/07/23 09/21/23 fluticasone propionate 44 2 puff inhalation DAILY #10.6 grams 03/07/23 09/21/23 mcg/actuation HFA aerosol inhaler (Flovent HFA) fluticasone propionate 50 1 spray intranasal BID #16 grams 03/07/23 09/21/23 mcg/actuation nasal spray,suspension (Flonase Allergy Relief) montelukast 10 mg tablet 10 mg PO DAILY #90 tabs 03/07/23 09/21/23 docosahexaenoic acid 200 mg 200 mg PO DAILY #90 caps 07/16/23 09/21/23 capsule ( DHA) ferrous gluconate 240 mg (27 mg 240 mg PO DAILY #90 tabs 07/20/23 09/21/23 iron) tablet (Ferate) folic acid 800 mcg tablet 0.8 mg PO DAILY #90 tabs 07/20/23 09/21/23 doxylamine 10 mg-pyridoxine (vit 1 tab PO DAILY #30 tabs 09/10/23 09/21/23 B6) 10 mg tablet,delayed release (Diclegis) promethazine 25 mg tablet 25 mg PO Q6H PRN nausea and 09/10/23 09/21/23 vomiting #30 tabs metoclopramide HCl 5 mg tablet 5 mg PO QACHS PRN nausea and 09/21/23 (Reglan) vomiting #20 tabs Previous Rx's Medication Instructions Recorded loratadine 10 mg capsule (Claritin 10 mg PO DAILY #90 caps 11/11/14 Liqui-Gel) ondansetron 4 mg disintegrating 4 mg PO Q8H PRN nausea and 01/26/23 tablet vomiting #6 tabs clonidine HCl 0.1 mg tablet 0.1 mg PO BID PRN agitation #60 03/07/23 tabs fluoxetine 20 mg capsule 20 mg PO DAILY #90 caps 03/07/23 fluticasone propionate 44 2 puff inhalation DAILY #10.6 grams 03/07/23 mcg/actuation HFA aerosol inhaler (Flovent HFA) fluticasone propionate 50 1 spray intranasal BID #16 grams 03/07/23 mcg/actuation nasal spray,suspension (Flonase Allergy Relief) montelukast 10 mg tablet 10 mg PO DAILY #90 tabs 03/07/23 docosahexaenoic acid 200 mg 200 mg PO DAILY #90 caps 07/16/23 capsule ( DHA) ferrous gluconate 240 mg (27 mg 240 mg PO DAILY #90 tabs 07/20/23 iron) tablet (Ferate) folic acid 800 mcg tablet 0.8 mg PO DAILY #90 tabs 07/20/23 doxylamine 10 mg-pyridoxine (vit 1 tab PO DAILY #30 tabs 09/10/23 B6) 10 mg tablet,delayed release (Diclegis) promethazine 25 mg tablet 25 mg PO Q6H PRN nausea and 09/10/23 vomiting #30 tabs metoclopramide HCl 5 mg tablet 5 mg PO QACHS PRN nausea and 09/21/23 (Reglan) vomiting #20 tabs Allergies Allergy/AdvReac Type Severity Reaction Status Date / Time Sulfa (Sulfonamide Allergy Severe Anaphylaxsi Unverified 09/10/23 11:24 Antibiotics) s sulfamethoxazole Allergy Severe Anaphylaxis Unverified 09/10/23 11:24 [From Bactrim] trimethoprim [From Bactrim] Allergy Severe Anaphylaxis Unverified 09/10/23 11:24 mold Allergy Intermediate Swelling/Ed Unverified 09/10/23 11:24 adrianna pneumococcal vaccine Allergy Mild Contraindic Unverified 09/10/23 11:24 ated pollen extracts Allergy Mild Wheezing Unverified 09/10/23 11:24 doxycycline AdvReac Severe Nausea Unverified 09/10/23 11:24 diphenhydramine AdvReac Contraindic Unverified 09/10/23 11:24 [From Benadryl] ated General Stated Complaint: Nausea/Vomit/Diar JORGE L: 3 Review of Systems All systems reviewed & are unremarkable except as noted in HPI and below Gastrointestinal Gastrointestinal: Reports diarrhea, Reports nausea and Reports vomiting Exam Narrative Exam Narrative: Constitutional: Alert and oriented x3. Appears stated age. Normal body habitus. Head: Normocephalic, no trauma. Eyes: Pupils PERRL, Red reflex noted, EOM's intact. Eyelids symmetrical without lesions, discharge, or swelling. ENT: Bilateral TM's WNL, External ear normal to inspection, no mastoid TTP, swelling, or erythema, Nasal turbinates WNL, no nasal discharge. Normal de ntition, Posterior pharynx WNL, no exudate. Chest: RRR, Normal S1, S2, distal pulses intact. Resp: Lungs clear to auscultation bilaterally, no wheezes, rales, or rhonchi. Abdomen: Soft, non-distended, Normoactive bowel sounds all 4 quads. Musculoskeletal: Normal gait, 5/5 strength to all four extremities. Skin: No suspicious rashes or lesions. Capillary refill less than 2 sec. Neurologic: Cranial nerves II-XII intact. Alert and oriented x 3. Motor: No deficits noted. Sensory: Intact bilaterally all 4 extremities. Reflexes: DTR's intact bilaterally.. Hematologic/Lymphatic: No ecchymosis, no lymphadenopathy. Course Vital Signs Vital signs: Vital Signs Temperature 36.6 C 09/21/23 16:34 Pulse 74 09/21/23 16:34 Respiratory Rate 16 09/21/23 16:34 Blood Pressure 126/75 09/21/23 16:34 Pulse Oximetry 100 09/21/23 16:34 Temperature 36.6 C 09/21/23 16:34 Temperature Source Temporal Artery Scan 09/21/23 16:34 Pulse 74 09/21/23 16:34 Respiratory Rate 16 09/21/23 16:34 Respiratory Effort Normal 09/21/23 16:36 Blood Pressure 126/75 09/21/23 16:34 Blood Pressure Position Sitting 09/21/23 16:34 Pulse Oximetry 100 09/21/23 16:34 Oxygen Delivery Method Room Air 09/21/23 16:34 Oxygen Flow Rate 0 09/21/23 16:34 Pain Level 5 09/21/23 16:34 Medical Decision Making 23 year old female presents to the ED with cc nausea, vomiting and diarrhea which began yesterday. She reports some mild abdominal cramping, denies any vaginal discharge or bleeding, denies any dysuria. She does report that her mom had similar symptoms. She is 3 P0 approximately 14 weeks . US at for FHR which is 154, verified with Dr. Carranza. Labs are WNL, No UTI. Patient discharged with prescription for Reglan and instructions to follow-up with PCP/ANIMAL COP or return to ER for any worsening. Patient made hemodynamically stable alert and oriented throughout the remainder of her stay. This text was generated using [employer] dictation system, please disregard any oddities of phrase or misspellings. Lab Data Lab results reviewed: Yes I reviewed the patient's lab results. Labs: Laboratory Tests Range/Units 09/21/23 09/21/23 16:53 17:55 WBC (4.4-10.8) 10^3/uL 13.30 H RBC (3.93-5.22) 10^6/uL 4.14 Hgb (11.2-15.7) g/dL 11.7 Hct (36.0-46.0) % 34.5 L MCV (80-95) fL 83 MCH (27.0-33.0) pg 28.3 MCHC (32.0-36.0) % 33.9 RDW (11.7-14.6) % 13.4 Plt Count (130-400) 10^3/uL 303 MPV (8.0-11.0) fL 10.1 Immature Gran % 0.5 Neutrophils % 76.9 Lymphocytes % 15.9 Monocytes % 6.1 Eosinophils % 0.2 Basophils % 0.4 Nucleated RBC % (0.0-0.3) % 0.0 Absolute Neutrophils (1.2-6.7) 10^3/uL 10.23 H Absolute Lymphocytes (1.2-3.4) 10^3/uL 2.11 Absolute Monocytes (0.1-0.8) 10^3/uL 0.81 H Absolute Eosinophils (0.0-0.7) 10^3/uL 0.03 Absolute Basophils (0.0-0.2) 10^3/uL 0.05 Sodium (136-145) mmol/L 138 Potassium (3.5-5.1) mmol/L 3.5 Chloride (98-107) mmol/L 102 Carbon Dioxide (21.0-32.0) mmol/L 23.6 Anion Gap (3-11) mmol/L 12.4 H BUN (7-18) mg/dL 7 Creatinine (0.55-1.02) mg/dL 0.7 Est GFR (CKD-EPI 2020) (mL/min/1.73m2) 124.55 Glucose (74-106) mg/dL 82 Calcium (8.5-10.1) mg/dL 9.2 Magnesium (1.8-2.4) mg/dL 1.9 Total Bilirubin (0.2-1.0) mg/dL 0.4 AST (15-37) U/L 16 ALT (14-59) U/L 13 L Alkaline Phosphatase (46-116) U/L 40 L Total Protein (6.4-8.2) g/dL 7.6 Albumin (3.4-5.0) g/dL 3.8 Urine Color (Yellow) Yellow Urine Clarity (Clear) Clear Urine pH (5-8) 7.0 Ur Specific [place] (1.005-1.025) 1.025 Urine Protein (Neg-Trace) mg/dL Negative Urine Ketones (Negative) mg/dL >=160 H Urine Blood (Negative) Negative Urine Nitrite (Negative) Negative Urine Bilirubin (Negative) Negative Urine Urobilinogen (Up to 0.2) mg/dL 0.2 Ur Leukocyte Esterase (Negative) Negative Urine Glucose (Negative) mg/dL Negative Quality:SDOH Health Related Social Needs: No Data to Display PFSH All Active Problems (Updated 09/21/23 @ 18:12 by Gianna Machado NP) Dehydration (Acute) Vomiting affecting (Acute) Skin lesion (Acute) left shoulder Lump of skin (Acute) Allergies (Acute) Hallux valgus of left foot (Acute) Onychomycosis (Acute) Anxiety and depression (Chronic) Insomnia (Acute) Headache (Acute) Rash (Acute) COVID-19 (Acute) Genital herpes (Acute) HSV PCR blood test negative for HSV 1&2 09/08/2019 Allergic rhinitis due to pollen (Chronic 08/20/17) Medical History Astigmatism Incomplete miscarriage Asthma Surgical History S/P matrixectomy of toe of right foot H/O dilation and curettage History of surgical procedure (~09/2018) left middle finger Family History Mother Asthma Hypertension Father No problems noted. Sister No problems noted. Brother No problems noted. Maternal Grandfather , 50 Heart disease Maternal Grandmother No problems noted. Paternal Grandmother No problems noted. Social History Smoking/Tobacco Use Status: Never Smoking risk assessment performed?: Yes Alcohol Intake: never Drug use: Never Substance use type: does not use Caregiver/Support person: No Household members: other Details: parents Housing: house Communication Needs: None Do you need help understanding health information?: Never Pets and animals: Yes Pets and animals: cat(s), dog(s) and farm animals Sexually active: No Do you think of yourself as: straight/heterosexual Current gender identity: female What is your relationship status?: refused to answer How often do you talk on the phone with friends or family?: once per week How often do you get together with friends or relatives?: never How often do you attend zoroastrian or episcopal services?: decline to answer Do you belong to any clubs or organized social groups?: no Panel score (0-1 are the most socially isolated patients): 0 What type of physical activity do you participate in: none Seatbelt use: always Helmet use: Yes Helmet use: always Drive intox or ride w/intox transit mixer driver: No Do you feel safe at home: Yes Do you feel safe in your relationship?: Yes Additional Social history: boyfriend at bedside. Female Reproductive History Menstrual control method: progesterone injection History History 1 Para 0 Hx # Term Pregnancies Multiple births Hx # Pregnancies Ectopic pregnancies AB induced Hx Number of Living Children AB spontaneous 1
[2023-09-21 16:57] LABS: Abs Immature Grans 0.06 10^3/uL (0.0-0.06); Absolute Basophil Count 0.05 10^3/uL (0.0-0.2); Absolute Lymphocyte Count 2.11 10^3/uL (1.2-3.4); Absolute Monocyte Count 0.81 10^3/uL (0.1-0.8); Basophils % 0.4; Eosinophils % 0.2; HCT 34.5 % (36.0-46.0); HGB 11.7 g/dL (11.2-15.7); Immature Grans % 0.5; Lymphocytes % 15.9; MCH 28.3 pg (27.0-33.0); MCHC 33.9 % (32.0-36.0); MCV 83 fL (80-95); MPV 10.1 fL (8.0-11.0); Monocytes % 6.1; Neutrophils % 76.9; Platelet Count 303 10^3/uL (130-400); RBC 4.14 10^6/uL (3.93-5.22); RDW 13.4 % (11.7-14.6); RDW-SD 41.1 fL
[2023-09-21 16:58] LABS: Absolute Eosinophil Count 0.03 10^3/uL (0.0-0.7); Absolute Neutrophil Count 10.23 10^3/uL (1.2-6.7)
[2023-09-21] MEDS: Metoclopramide 10 MG/2 ML VIAL IVP (17:02)
[2023-09-21] MEDS: Normal Saline 1,000 ML 1000 ML IV (17:02)
[2023-09-21 17:12] LABS: ALT 13 U/L (14-59); AST 16 U/L (15-37); Albumin 3.8 g/dL (3.4-5.0); Alkaline Phosphatase 40 U/L (46-116); Anion Gap 12.4 mmol/L (3-11); BUN 7 mg/dL (7-18); Bilirubin, Total 0.4 mg/dL (0.2-1.0); CO2 23.6 mmol/L (21.0-32.0); CREATININE 0.7 mg/dL (0.55-1.02); Calcium 9.2 mg/dL (8.5-10.1); Chloride 102 mmol/L (98-107); Estimated GFR 124.55 (mL/min/1.73m2); Glucose 82 mg/dL (74-106); Magnesium 1.9 mg/dL (1.8-2.4); Potassium 3.5 mmol/L (3.5-5.1); Sodium 138 mmol/L (136-145); Total Protein 7.6 g/dL (6.4-8.2)
[2023-09-21 18:05] LABS: Bilirubin Negative (Negative); Blood Negative (Negative); Clarity Clear (Clear); Glucose Negative (Negative); Ketones >=160 mg/dL (Negative); Leukocyte Esterase Negative (Negative); Nitrite Negative (Negative); Specific Gravity 1.025 (1.005-1.025); Urobilinogen 0.2 mg/dL (Up to 0.2)
== END 2023-09-21 18:25 | disposition home or self-care (01) ==
PROVIDERS: Emergency Provider Registered Nurse Emergency; PCP Nurse Practitioner Family
DX: O21.9 Vomiting of pregnancy, unspecified (principal); R10.9 Unspecified abdominal pain; R11.0 Nausea
CPT/HCPCS: 80053; 96361; 96374; 99284; 81003; 83735; 85025; 99283; J2765

== ENCOUNTER 2023-11-07 07:19 | Emergency (ER) | payer MEDICAID, SELFPAY ==
[2023-11-07 07:28] VITALS: BP 123/69; PULSE 97; RESP 16; TEMP 37; O2SAT 100
[2023-11-07 07:37] VITALS: PULSE 85; RESP 16; O2SAT 100
[2023-11-07 07:42] LABS: Bilirubin Negative (Negative); Blood Negative (Negative); Clarity Sl Cloudy (Clear); Glucose Negative (Negative); Ketones Negative (Negative); Leukocyte Esterase Negative (Negative); Nitrite Negative (Negative); Specific Gravity 1.015 (1.005-1.025); Urobilinogen 0.2 mg/dL (Up to 0.2); pH 7.5 (5-8)
--- NOTE | 2023-11-07 07:58 | ED.GENADUL_ITS ---
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 Clinical Impression: Antepartum bleeding, second trimester Primary Care Provider: Darryn Moreno ED Provider: Jake Stroud Home Meds and New Rx's Prescriptions: No Action DHA 200 mg capsule 200 mg PO DAILY Qty: 90 0RF clonidine HCl 0.1 mg tablet 0.1 mg PO BID MDD 2 tabs PRN (Reason: agitation) Qty: 60 1RF fluoxetine 20 mg capsule 20 mg PO DAILY Qty: 90 4RF fluticasone propionate [Flonase Allergy Relief] 50 mcg/actuation spray,suspension 1 spray intranasal BID Qty: 16 4RF Rx Instructions: administer into each nostril fluticasone propionate [Flovent HFA] 44 mcg/actuation HFA aerosol inhaler 2 puff Inhalation DAILY Qty: 10.6 3RF Claritin Liqui-Gel 10 mg capsule 10 mg PO DAILY Qty: 90 4RF montelukast 10 mg tablet 10 mg PO DAILY Qty: 90 4RF ferrous gluconate [Ferate] 240 mg (27 mg iron) tablet 240 mg PO DAILY Qty: 90 3RF folic acid 800 mcg tablet 0.8 mg PO DAILY Qty: 90 3RF acetaminophen [Tylenol] 325 MG tablet 1 tab PO PRN PRN ondansetron 4 mg tablet,disintegrating 4 mg PO Q8H PRN (Reason: nausea and vomiting) Qty: 6 0RF doxylamine-pyridoxine (vit B6) [Diclegis] 10-10 mg tablet,delayed release (DR/EC) 1 tab PO DAILY Qty: 30 0RF promethazine 25 mg tablet 25 mg PO Q6H PRN (Reason: nausea and vomiting) Qty: 30 0RF metoclopramide HCl [Reglan] 5 mg tablet 5 mg PO QACHS PRN (Reason: nausea and vomiting) Qty: 20 0RF Rx Instructions: Take one tablet as needed for nausea and vomiting Discharge Instructions Additional Instructions: Please follow-up with your primary 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 in the coming week. Return to the emergency department for any worsening symptoms HPI General Date/Time Provider Initiated Documentation: 11/07/23 07:23 . HPI Narrative: 23-year-old female at approximately 21 weeks gestation presents with possible vaginal bleeding, wiped after having a bowel movement this morning and noticed an area of blood streaking on toilet paper approximately the size of a ambreen, no further bleeding; patient does have some suprapubic mild discomfort, no loss of fluid no discharge. Patient has had care at [facility]. Patient unsure of her blood type. Related Data Home Medications Medication Instructions Recorded Confirmed loratadine 10 mg capsule (Claritin 10 mg PO DAILY #90 caps 11/11/14 11/07/23 Liqui-Gel) acetaminophen 325 mg tablet 1 tab PO PRN PRN 06/13/15 11/07/23 (Tylenol) ondansetron 4 mg disintegrating 4 mg PO Q8H PRN nausea and 01/26/23 11/07/23 tablet vomiting #6 tabs clonidine HCl 0.1 mg tablet 0.1 mg PO BID PRN agitation #60 03/07/23 11/07/23 tabs fluoxetine 20 mg capsule 20 mg PO DAILY #90 caps 03/07/23 11/07/23 fluticasone propionate 44 2 puff inhalation DAILY #10.6 grams 03/07/23 11/07/23 mcg/actuation HFA aerosol inhaler (Flovent HFA) fluticasone propionate 50 1 spray intranasal BID #16 grams 03/07/23 11/07/23 mcg/actuation nasal spray,suspension (Flonase Allergy Relief) montelukast 10 mg tablet 10 mg PO DAILY #90 tabs 03/07/23 11/07/23 docosahexaenoic acid 200 mg 200 mg PO DAILY #90 caps 07/16/23 11/07/23 capsule ( DHA) ferrous gluconate 240 mg (27 mg 240 mg PO DAILY #90 tabs 07/20/23 11/07/23 iron) tablet (Ferate) folic acid 800 mcg tablet 0.8 mg PO DAILY #90 tabs 07/20/23 11/07/23 doxylamine 10 mg-pyridoxine (vit 1 tab PO DAILY #30 tabs 09/10/23 11/07/23 B6) 10 mg tablet,delayed release (Diclegis) promethazine 25 mg tablet 25 mg PO Q6H PRN nausea and 09/10/23 11/07/23 vomiting #30 tabs metoclopramide HCl 5 mg tablet 5 mg PO QACHS PRN nausea and 09/21/23 11/07/23 (Reglan) vomiting #20 tabs Previous Rx's Medication Instructions Recorded loratadine 10 mg capsule (Claritin 10 mg PO DAILY #90 caps 11/11/14 Liqui-Gel) ondansetron 4 mg disintegrating 4 mg PO Q8H PRN nausea and 01/26/23 tablet vomiting #6 tabs clonidine HCl 0.1 mg tablet 0.1 mg PO BID PRN agitation #60 03/07/23 tabs fluoxetine 20 mg capsule 20 mg PO DAILY #90 caps 03/07/23 fluticasone propionate 44 2 puff inhalation DAILY #10.6 grams 03/07/23 mcg/actuation HFA aerosol inhaler (Flovent HFA) fluticasone propionate 50 1 spray intranasal BID #16 grams 03/07/23 mcg/actuation nasal spray,suspension (Flonase Allergy Relief) montelukast 10 mg tablet 10 mg PO DAILY #90 tabs 03/07/23 docosahexaenoic acid 200 mg 200 mg PO DAILY #90 caps 07/16/23 capsule ( DHA) ferrous gluconate 240 mg (27 mg 240 mg PO DAILY #90 tabs 07/20/23 iron) tablet (Ferate) folic acid 800 mcg tablet 0.8 mg PO DAILY #90 tabs 07/20/23 doxylamine 10 mg-pyridoxine (vit 1 tab PO DAILY #30 tabs 09/10/23 B6) 10 mg tablet,delayed release (Diclegis) promethazine 25 mg tablet 25 mg PO Q6H PRN nausea and 09/10/23 vomiting #30 tabs metoclopramide HCl 5 mg tablet 5 mg PO QACHS PRN nausea and 09/21/23 (Reglan) vomiting #20 tabs Allergies Allergy/AdvReac Type Severity Reaction Status Date / Time Sulfa (Sulfonamide Allergy Severe Anaphylaxsi Unverified 11/07/23 07:27 Antibiotics) s sulfamethoxazole Allergy Severe Anaphylaxis Unverified 11/07/23 07:27 [From Bactrim] trimethoprim [From Bactrim] Allergy Severe Anaphylaxis Unverified 11/07/23 07:27 mold Allergy Intermediate Swelling/Ed Unverified 11/07/23 07:27 adrianna pneumococcal vaccine Allergy Mild Contraindic Unverified 11/07/23 07:27 ated pollen extracts Allergy Mild Wheezing Unverified 11/07/23 07:27 doxycycline AdvReac Severe Nausea Unverified 11/07/23 07:27 diphenhydramine AdvReac Contraindic Unverified 11/07/23 07:27 [From Benadryl] ated General Stated 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: 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 JORGE L: 3 Review of Systems Narrative: Review of Systems Constitutional: negative Eyes: negative ENT: negative Cardiovascular: negative Respiratory: negative Gastrointestinal: negative : Possible vaginal bleeding Musculoskeletal: negative Skin: negative Neurologic: negative Psych: negative Exam Narrative Exam Narrative: Physical Examination General: alert, awake, cooperative, resting comfortably, no acute distress HEENT: normocephalic, atraumatic; PERRL, EOM intact, conjunctiva normal; no nasal discharge; moist mucous membranes, oral and pharyngeal mucosa normal, tolerating secretions Neck: supple, trachea midline; full ROM Chest: normal to inspection Respiratory: normal respiratory effort, speaking in full sentences GI: abdomen soft, non-tender, non-distended; no palpable mass or hepatosplenomegaly; gravid abdomen : Skin: no lesions, rashes or trauma appreciated Neuro: AAOx3, normal speech, moving all extremities Psych: Appropriate mood and affect Course Vital Signs Vital signs: Vital Signs Temperature 37.0 C 11/07/23 07:28 Pulse 97 H 11/07/23 07:28 Respiratory Rate 16 11/07/23 07:28 Blood Pressure 123/69 11/07/23 07:28 Pulse Oximetry 100 11/07/23 07:28 Temperature 37.0 C 11/07/23 07:28 Temperature Source Temporal Artery Scan 11/07/23 07:28 Pulse 85 11/07/23 07:37 Respiratory Rate 16 11/07/23 07:37 Respiratory Effort Normal, Non-Labored 11/07/23 07:31 Blood Pressure 123/69 11/07/23 07:28 Blood Pressure Position Sitting 11/07/23 07:28 Pulse Oximetry 100 11/07/23 07:37 Oxygen Delivery Method Room Air 11/07/23 07:28 Oxygen Flow Rate 0 11/07/23 07:28 Pain Level 5 11/07/23 07:37 Comment no tylenol today 11/07/23 07:28 Lab/Test Results Lab/Test Results: Laboratory Tests Range/Units 11/07/23 07:36 Urine Color (Yellow) Yellow Urine Clarity (Clear) Sl Cloudy Urine pH (5-8) 7.5 Ur Specific [place] (1.005-1.025) 1.015 Urine Protein (Neg-Trace) mg/dL Negative Urine Ketones (Negative) mg/dL Negative Urine Blood (Negative) Negative Urine Nitrite (Negative) Negative Urine Bilirubin (Negative) Negative Urine Urobilinogen (Up to 0.2) mg/dL 0.2 Ur Leukocyte Esterase (Negative) Negative Urine Glucose (Negative) mg/dL Negative Medical Decision Making 23-year-old female at approximately 21 weeks gestation presents with possible vaginal bleeding, wiped after having a bowel movement this morning and noticed an area of blood streaking on toilet paper approximately the size of a ambreen, no further bleeding; patient does have some suprapubic mild discomfort, no loss of fluid no discharge. Patient has had care at [facility]. Patient unsure of her blood type. Patient resting comfortably no acute distress. Hemodynamically stable afebrile nontoxic. Bedside ultrasound showing normal intrauterine , heart rate 150 bpm, good motion, anterior placenta; will perform external perineal examination with nurse mathematical technician, to assess for any signs of active vaginal bleeding and/or signs of bleeding hemorrhoids. Will consider RhoGAM administration given described blood loss pending ABO Rh status of mother. 8: 45 was able to contact 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, patient's blood type is O-, no RhoGAM has been given at this point in . Will contact lab here to see if we need confirmatory ABO Rh status in order to administer RhoGAM today. Perineal exam shows no external signs of vaginal bleeding; small non bleeding external hemorrhoid non thrombosed. 10: 24 RhoGAM administered, no reaction patient resting comfortably no acute distress will follow-up with her primary 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 team this week or next week Quality:SDOH Health Related Social Needs: No Data to Display PFSH All Active Problems (Updated 11/07/23 @ 10:27 by Jake Stroud MD) Antepartum bleeding, second trimester (Acute) Skin lesion (Acute) left shoulder Lump of skin (Acute) Allergies (Acute) Hallux valgus of left foot (Acute) Onychomycosis (Acute) Anxiety and depression (Chronic) Insomnia (Acute) Headache (Acute) Rash (Acute) COVID-19 (Acute) Genital herpes (Acute) HSV PCR blood test negative for HSV 1&2 09/08/2019 Allergic rhinitis due to pollen (Chronic 08/20/17) Medical History Astigmatism Incomplete miscarriage Asthma Surgical History S/P matrixectomy of toe of right foot H/O dilation and curettage History of surgical procedure (~09/2018) left middle finger Family History Mother Asthma Hypertension Father No problems noted. Sister No problems noted. Brother No problems noted. Maternal Grandfather , 50 Heart disease Maternal Grandmother No problems noted. Paternal Grandmother No problems noted. Social History Smoking/Tobacco Use Status: Never Smoking risk assessment performed?: Yes Alcohol Intake: never Drug use: Never Substance use type: does not use Caregiver/Support person: No Household members: other Details: parents Housing: house Communication Needs: None Do you need help understanding health information?: Never Pets and animals: Yes Pets and animals: cat(s), dog(s) and farm animals Sexually active: No Do you think of yourself as: straight/heterosexual Current gender identity: female What is your relationship status?: refused to answer How often do you talk on the phone with friends or family?: once per week How often do you get together with friends or relatives?: never How often do you attend orthodoxy or jainism services?: decline to answer Do you belong to any clubs or organized social groups?: no Panel score (0-1 are the most socially isolated patients): 0 What type of physical activity do you participate in: none Seatbelt use: always Helmet use: Yes Helmet use: always Drive intox or ride w/intox route driver: No Do you feel safe at home: Yes Do you feel safe in your relationship?: Yes Additional Social history: boyfriend at bedside. Female Reproductive History Menstrual control method: progesterone injection History History 1 Para 0 Hx # Term Pregnancies Multiple births Hx # Pregnancies Ectopic pregnancies AB induced Hx Number of Living Children AB spontaneous 1
[2023-11-07 08:58] VITALS: PULSE 80; RESP 16; TEMP 36.4; O2SAT 99
== END 2023-11-07 10:39 | disposition home or self-care (01) ==
PROVIDERS: Emergency Provider Emergency Medicine; PCP Nurse Practitioner Family
DX: O46.92 Antepartum hemorrhage, unspecified, second trimester (principal)
CPT/HCPCS: 36415; 86850; 86900; 86901; 90384; 99284; 81003; 99283

== ENCOUNTER 2024-06-01 10:38 | Emergency (ER) | payer MEDICAID, SELFPAY ==
[2024-06-01 10:48] VITALS: BP 128/75; PULSE 81; RESP 16; TEMP 36.4; O2SAT 100
--- NOTE | 2024-06-01 11:00 | DI.RAD_ITS ---
Exam(s) XR HAND RT COMPLETE XR WRIST RT COMPLETE EXAM: XR WRIST RT COMPLETE CLINICAL HISTORY: pain s/p punching a wall. TECHNIQUE: 2D digital imaging was performed. Three views. COMPARISON: CR,XR XR HAND RT COMPLETE from 06/01/2024 FINDINGS: BONES: No acute fracture is present. No bony destructive lesion is seen. JOINTS: The carpal bones are normally aligned. SOFT TISSUE: Normal. IMPRESSION: Unremarkable radiographs of the right wrist. DATA REPOSITORY: RADIATION DOSE DELIVERED:
--- NOTE | 2024-06-01 11:03 | ED.GENADUL_ITS ---
Discharge Plan Disposition Patient Disposition: Home Condition: Stable Discharge Details Clinical Impression: Contusion of hand, right, Contusion of right wrist Primary Care Provider: Darryn Moreno ED Provider: Connor Lake Home Meds and New Rx's Prescriptions: Continued clonidine HCl 0.1 mg tablet 0.1 mg PO BID MDD 2 tabs PRN (Reason: agitation) Qty: 60 1RF fluoxetine 20 mg capsule 20 mg PO DAILY Qty: 90 4RF fluticasone propionate [Flonase Allergy Relief] 50 mcg/actuation spray,suspension 1 spray intranasal BID Qty: 16 4RF Rx Instructions: administer into each nostril fluticasone propionate 44 mcg/actuation HFA aerosol inhaler 2 puff Inhalation DAILY Qty: 10.6 3RF Claritin Liqui-Gel 10 mg capsule 10 mg PO DAILY Qty: 90 4RF montelukast 10 mg tablet 10 mg PO DAILY Qty: 90 4RF acetaminophen [Tylenol] 325 MG tablet 1 tab PO PRN PRN Discharge Instructions Additional Instructions: Your x-rays did not show any fractures Follow-up with your primary care provider if not improving in a week Wear the splint as needed for comfort. You can take 1000 mg of acetaminophen and 600 mg of ibuprofen every 6 hours as needed If you feel more ill or have severe worsening pain return to the emergency department for reevaluation. HPI General Mode of arrival: ambulatory . Date/Time Provider Initiated Documentation: 06/01/24 10:47 . Limitations to Documentation: no limitations . Information obtained by: patient . History of Present Illness 24 year old F presents to the emergency department with the chief complaint of pain s/p punching a wall, described as moderate, and is localized to the right and upper extremity. Patient reports no radiation. Patient started experiencing this hour(s) (2) and it has been constant. No relieving factors improve symptom(s), No exacerbating factors reported . Patient notes no other symptoms.. Patient did receive the following treatments prior to arrival, none Related Data Home Medications ?Medication ?Instructions ?Recorded ?Confirmed loratadine 10 mg capsule (Claritin 10 mg PO DAILY #90 caps 11/11/14 06/01/24 Liqui-Gel) acetaminophen 325 mg tablet 1 tab PO PRN PRN 06/13/15 06/01/24 (Tylenol) clonidine HCl 0.1 mg tablet 0.1 mg PO BID PRN agitation #60 03/07/23 06/01/24 tabs fluoxetine 20 mg capsule 20 mg PO DAILY #90 caps 05/30/24 06/01/24 fluticasone propionate 44 2 puff inhalation DAILY #10.6 grams 05/30/24 06/01/24 mcg/actuation HFA aerosol inhaler fluticasone propionate 50 1 spray intranasal BID #16 grams 05/30/24 06/01/24 mcg/actuation nasal spray,suspension (Flonase Allergy Relief) montelukast 10 mg tablet 10 mg PO DAILY #90 tabs 05/30/24 06/01/24 Previous Rx's ?Medication ?Instructions ?Recorded loratadine 10 mg capsule (Claritin 10 mg PO DAILY #90 caps 11/11/14 Liqui-Gel) clonidine HCl 0.1 mg tablet 0.1 mg PO BID PRN agitation #60 03/07/23 tabs fluoxetine 20 mg capsule 20 mg PO DAILY #90 caps 05/30/24 fluticasone propionate 44 2 puff inhalation DAILY #10.6 grams 05/30/24 mcg/actuation HFA aerosol inhaler fluticasone propionate 50 1 spray intranasal BID #16 grams 05/30/24 mcg/actuation nasal spray,suspension (Flonase Allergy Relief) montelukast 10 mg tablet 10 mg PO DAILY #90 tabs 05/30/24 Allergies Allergy/AdvReac Type Severity Reaction Status Date / Time Sulfa (Sulfonamide Allergy Severe Anaphylaxsi Unverified 06/01/24 10:47 Antibiotics) s sulfamethoxazole (From Allergy Severe Anaphylaxis Unverified 06/01/24 10:47 Bactrim) trimethoprim (From Bactrim) Allergy Severe Anaphylaxis Unverified 06/01/24 10:47 mold Allergy Intermediate Swelling/Ed Unverified 06/01/24 10:47 adrianna pneumococcal vaccine Allergy Mild Contraindic Unverified 06/01/24 10:47 ated pollen extracts Allergy Mild Wheezing Unverified 06/01/24 10:47 doxycycline AdvReac Severe Nausea Unverified 06/01/24 10:47 diphenhydramine (From AdvReac Contraindic Unverified 06/01/24 10:47 Benadryl) ated General Stated Complaint: Orthopedic JORGE L: 4 Review of Systems All systems reviewed & are unremarkable except as noted in HPI and below Constitutional Constitutional: Denies chills, Denies fever(s) and Denies weakness Cardiovascular Cardiovascular: Denies chest pain and Denies dyspnea Respiratory Respiratory: Denies cough and Denies dyspnea Gastrointestinal Gastrointestinal: Denies abdominal pain, Denies nausea and Denies vomiting Musculoskeletal Musculoskeletal: Denies joint swelling Neurologic Neurologic: Denies weakness Exam Const General: no acute distress Orientation: alert HENMT Head: normal to inspection Ears: external ears normal General nose exam: external nose normal Mouth: moist mucous membranes Eyes General: appearance normal, both eyes and all related structures Neck Neck: normal visual inspection Resp Effort & Inspection: normal respiratory effort and able to speak in complete sentences Cardio Rate: regular rate Skin General skin exam: no rashes or lesions noted Neuro General: patient alert and patient oriented x3 Extrem General: full ROM and capillary refill normal Psych Mental Status: mental status grossly normal Course Vital Signs Vital signs: Vital Signs Temperature 36.4 C L 06/01/24 10:48 Pulse 81 06/01/24 10:48 Respiratory Rate 16 06/01/24 10:48 Blood Pressure 128/75 06/01/24 10:48 Pulse Oximetry 100 06/01/24 10:48 Temperature 36.4 C L 06/01/24 10:48 Temperature Source Temporal Artery Scan 06/01/24 10:48 Pulse 81 06/01/24 10:48 Respiratory Rate 16 06/01/24 10:48 Respiratory Effort Normal, Non-Labored 06/01/24 10:52 Blood Pressure 128/75 06/01/24 10:48 Blood Pressure Position Sitting 06/01/24 10:48 Pulse Oximetry 100 06/01/24 10:48 Oxygen Delivery Method Room Air 06/01/24 10:48 Oxygen Flow Rate 0 06/01/24 10:48 Pain Level 10 06/01/24 10:48 Medical Decision Making 24-year-old female states she got upset earlier and punched a wall with her right hand. Did not fall or sustain other injuries. She has pain in the right mid hand and right lateral wrist. She has no visible or palpable deformities. She is full range of motion of the wrist and hand though she has pain when doing so. Intact sensation and cap refill. Normal radial and ulnar pulses. Suspect contusion versus fracture, will obtain x-rays to further evaluate. She has no snuffbox tenderness without scaphoid fracture Wrist and hand x-ray negative, patient stable. Will provide a splint to use for comfort, no snuffbox tenderness so doubt scaphoid fracture. She will follow-up with her PCP if pain is not improving this week and return precautions given Differential Diagnosis Differential Diagnosis: Fracture, contusion Quality:SDOH Health Related Social Needs: No Data to Display PFSH All Active Problems (Updated 06/01/24 @ 11:50 by Connor Lake MD) Contusion of right wrist (Acute) Contusion of hand, right (Acute) Skin lesion (Acute) left shoulder Lump of skin (Acute) Allergies (Acute) Hallux valgus of left foot (Acute) Onychomycosis (Acute) Anxiety and depression (Chronic) Insomnia (Acute) Headache (Acute) Rash (Acute) COVID-19 (Acute) Genital herpes (Acute) HSV PCR blood test negative for HSV 1&2 09/08/2019 Allergic rhinitis due to pollen (Chronic 08/20/17) Medical History Astigmatism Incomplete miscarriage Asthma Surgical History S/P matrixectomy of toe of right foot H/O dilation and curettage History of surgical procedure (~09/2018) left middle finger Family History Mother Asthma Hypertension Father No problems noted. Sister No problems noted. Brother No problems noted. Maternal Grandfather , 50 Heart disease Maternal Grandmother No problems noted. Paternal Grandmother No problems noted. Social History Smoking/Tobacco Use Status: Never Smoking risk assessment performed?: Yes Alcohol Intake: never Drug use: Never Substance use type: does not use Caregiver/Support person: No Household members: other Details: parents Housing: house Communication Needs: None Do you need help understanding health information?: Never Pets and animals: Yes Pets and animals: cat(s), dog(s) and farm animals Sexually active: No Do you think of yourself as: straight/heterosexual Current gender identity: female What is your relationship status?: refused to answer How often do you talk on the phone with friends or family?: once per week How often do you get together with friends or relatives?: never How often do you attend pentecostal or voodoo services?: decline to answer Do you belong to any clubs or organized social groups?: no Panel score (0-1 are the most socially isolated patients): 0 What type of physical activity do you participate in: none Seatbelt use: always Helmet use: Yes Helmet use: always Drive intox or ride w/intox ambulance driver: No Do you feel safe at home: Yes Do you feel safe in your relationship?: Yes Additional Social history: boyfriend at bedside. Female Reproductive History Menstrual control method: progesterone injection History History 1 Para 0 Hx # Term Pregnancies Multiple births Hx # Pregnancies Ectopic pregnancies AB induced Hx Number of Living Children AB spontaneous 1
[2024-06-01] MEDS: Ibuprofen 600 MG TAB PO (11:17)
--- NOTE | 2024-06-01 11:45 | DI.VRAD_ITS ---
PROCEDURE INFORMATION: Exam: XR Right Wrist Exam date and time: 06/01/2024 11:12 AM Age: 24 years old Clinical indication: Finger(s) and hand; Right; Patient HX: Pain S/P punching wall. TECHNIQUE: Imaging protocol: Radiologic exam of the right wrist. Views: 3 or more views. COMPARISON: CR XR wrist RT compl navicular 04/01/2018 3:35 PM FINDINGS: Bones/joints: No acute fracture or malalignment. Soft tissues: Unremarkable. IMPRESSION: No acute fracture. Dictated and Authenticated by: Lesley Carter MD. Ordering:ISHA Ryan MD
--- NOTE | 2024-06-01 11:46 | DI.VRAD_ITS ---
PROCEDURE INFORMATION: Exam: XR Right Hand Exam date and time: 06/01/2024 11:11 AM Age: 24 years old Clinical indication: Hand; Right; Patient HX: Pain S/P punching wall TECHNIQUE: Imaging protocol: Radiologic exam of the right hand. Views: 3 or more views. COMPARISON: CR XR hand RT complete 04/01/2018 3:35 PM FINDINGS: Bones/joints: No acute fracture or malalignment. Soft tissues: Unremarkable. IMPRESSION: No acute fracture. Dictated and Authenticated by: Lesley Carter MD. Ordering:ISHA Ryan MD
== END 2024-06-01 12:28 | disposition home or self-care (01) ==
PROVIDERS: Emergency Provider Emergency Medicine; PCP Nurse Practitioner Family
DX: S60.221A Contusion of right hand, initial encounter (principal); S60.211A Contusion of right wrist, initial encounter; W22.01XA Walked into wall, initial encounter; Y93.89 Activity, other specified; Y92.018 Other place in single-family (private) house as the place of occurrence of the external cause
CPT/HCPCS: 99283; 73110; 73130

== ENCOUNTER 2024-09-12 08:11 | Emergency (ER) | payer OTHER, SELFPAY ==
[2024-09-12 08:15] VITALS: BP 119/69; PULSE 78; RESP 14; TEMP 36.8; O2SAT 99
--- NOTE | 2024-09-12 08:27 | W.ED.GENAD ---
Discharge Plan Disposition Patient Disposition: Home Condition: Good Discharge Details Clinical Impression: Left arm pain, Contusion of arm, left Primary Care Provider: Darryn Moreon ED Provider: Aiyana Kenyon Home Meds and New Rx's Prescriptions: Continued clonidine HCl 0.1 mg tablet 0.1 mg PO BID MDD 2 tabs PRN (Reason: agitation) Qty: 60 1RF fluoxetine 20 mg capsule 20 mg PO DAILY Qty: 90 4RF fluticasone propionate [Flonase Allergy Relief] 50 mcg/actuation spray,suspension 1 spray intranasal BID Qty: 16 4RF Rx Instructions: administer into each nostril Claritin Liqui-Gel 10 mg capsule 10 mg PO DAILY Qty: 90 4RF montelukast 10 mg tablet 10 mg PO DAILY Qty: 90 4RF Arnuity Ellipta 50 mcg/actuation blister with device 1 inh inhalation Q24H Qty: 90 3RF acetaminophen [Tylenol] 325 MG tablet 1 tab PO PRN PRN Discharge Instructions Instructions: Acute Pain, Adult Additional Instructions: As we discussed, the x-rays of your left elbow and left shoulder are reassuring with no evidence to suggest fracture or dislocation. I am worried that some of this is from you falling and having some contusions. As we discussed, the pain at the elbow seems to be along the outside where a number of your muscles in your forearm attached and I believe that by wearing the splint on your wrist will also help with the pain in your elbow. Please encourage rest, ice, elevation. Tylenol and ibuprofen as needed for discomfort. Please take as directed on the packaging. Please avoid any heavy lifting while your pain persist. Follow-up with your primary care in 1 to 2 weeks for reevaluation. Please follow the recommendations from previous visit regarding the left wrist but you may switch from the Wallace wrap to the brace to help improve discomfort. If you develop any new or worsening symptoms please seek care urgently once again. Stand Alone Forms: Work Release Referrals: Darryn Moreno, [employer]PERATOR [Primary Care Provider] - Discharge Data Discharge Date/Time-TO BE ENTERED AT DEPARTURE: 09/12/24 09:41 HPI General Date/Time Provider Initiated Documentation: 09/12/24 08:12. Limitations to Documentation: no limitations. Information obtained by: patient and RN notes reviewed. History of Present Illness 24 year old F presents to the emergency department with the chief complaint of Left arm pain after fall at work., described as moderate, with intensity rated at 8. Quality is described as aching, and is localized to the left and upper extremity. Patient extremity. Patient started experiencing this day(s) and it has been constant. Immobilization improves symptom(s), Movement worsens symptoms . Patient notes other (tingling ulnar nerve distribution left hand); denies chest pain, headaches, rash and shortness of breath. Patient did receive the following treatments prior to arrival, none Related Data Home Medications ?Medication ?Instructions ?Recorded ?Confirmed loratadine 10 mg capsule (Claritin 10 mg PO DAILY #90 caps 11/11/14 09/12/24 Liqui-Gel) acetaminophen 325 mg tablet 1 tab PO PRN PRN 06/13/15 09/12/24 (Tylenol) clonidine HCl 0.1 mg tablet 0.1 mg PO BID PRN agitation #60 03/07/23 09/12/24 tabs fluoxetine 20 mg capsule 20 mg PO DAILY #90 caps 05/30/24 09/12/24 fluticasone propionate 50 1 spray intranasal BID #16 grams 05/30/24 09/12/24 mcg/actuation nasal spray,suspension (Flonase Allergy Relief) montelukast 10 mg tablet 10 mg PO DAILY #90 tabs 05/30/24 09/12/24 fluticasone furoate 50 1 inh inhalation Q24H #90 ea 06/30/24 09/12/24 mcg/actuation blister powder for inhalation (Arnuity Ellipta) Previous Rx's ?Medication ?Instructions ?Recorded loratadine 10 mg capsule (Claritin 10 mg PO DAILY #90 caps 11/11/14 Liqui-Gel) clonidine HCl 0.1 mg tablet 0.1 mg PO BID PRN agitation #60 03/07/23 tabs fluoxetine 20 mg capsule 20 mg PO DAILY #90 caps 05/30/24 fluticasone propionate 50 1 spray intranasal BID #16 grams 05/30/24 mcg/actuation nasal spray,suspension (Flonase Allergy Relief) montelukast 10 mg tablet 10 mg PO DAILY #90 tabs 05/30/24 fluticasone furoate 50 1 inh inhalation Q24H #90 ea 06/30/24 mcg/actuation blister powder for inhalation (Arnuity Ellipta) Allergies Allergy/AdvReac Type Severity Reaction Status Date / Time Sulfa (Sulfonamide Allergy Severe Anaphylaxsi Unverified 06/02/24 15:53 Antibiotics) s sulfamethoxazole (From Allergy Severe Anaphylaxis Unverified 06/02/24 15:53 Bactrim) trimethoprim (From Bactrim) Allergy Severe Anaphylaxis Unverified 06/02/24 15:53 mold Allergy Intermediate Swelling/Ed Unverified 06/02/24 15:53 adrianna pneumococcal vaccine Allergy Mild Contraindic Unverified 06/02/24 15:53 ated pollen extracts Allergy Mild Wheezing Unverified 06/02/24 15:53 doxycycline AdvReac Severe Nausea Unverified 06/02/24 15:53 diphenhydramine (From AdvReac Contraindic Unverified 06/02/24 15:53 Benadryl) ated General Stated Complaint: Orthopedic JORGE L: 4 Review of Systems Constitutional Constitutional: Reports as per HPI, Denies fever(s), Denies headache(s) and Denies weakness ENT Ears, Nose, Mouth, and Throat: Denies headache(s) Cardiovascular Cardiovascular: Reports as per HPI Respiratory Respiratory: Reports as per HPI and Denies cough Musculoskeletal Musculoskeletal: Reports as per HPI Integumentary/Breasts Skin/Breast: Reports as per HPI, Denies rash and Denies wounds Neurologic Neurologic: Reports as per HPI, Denies headache(s), Denies paresthesias and Denies weakness Exam Const General: cooperative, healthy appearing, comfortable, no acute distress, well developed and well groomed Nutritional Appearance: average body habitus and well nourished Orientation: alert and awake Resp Effort & Inspection: normal respiratory effort, able to speak in complete sentences and no respiratory distress Cardio Rate: regular rate Rhythm: regular rhythm Skin General skin exam: no rashes or lesions noted Lesions: no lesions Rashes: no rashes Trauma: no lacerations or abrasions Neuro General: patient alert and patient awake Cognition: normal cognition Speech: speech normal Gait: normal gait Motor: muscle tone normal throughout Sensory Exam: no sensory deficits noted Extrem Left upper extremity: normal to inspection, full ROM, normal capillary refill, no joint enlargement, shoulder/upper arm Details: inspection abnormal, tenderness Location: of the proximal humerus and over the deltoid bursa; not of the clavicle, not of the A-C joint, not of the mid-shaft humerus, not over the coracoid process and not over the biceps tendon, axillary nerve sensory function normal and normal ROM; no swelling, no abrasions, no lacerations, no ecchymosis, no crepitus and no deformity, elbow/forearm Details: normal to inspection, tenderness Location: of the lateral epicondyle, normal ROM and distal pulses intact; no swelling, no abrasions, no lacerations, no ecchymosis, no crepitus and no deformity, wrist Details: abnormal to inspection (small area of ecchymosis palmar side, ulnar aspect), tenderness Location: of the distal ulna; not of the distal radius and not of the anatomic snuffbox, normal ROM, ecchymosis, normal vascular exam and radial pulse present; no swelling, no unusual warmth and no deformity and hand; no cyanosis Course Vital Signs Vital signs: Vital Signs Temperature 36.8 C 09/12/24 08:15 Pulse 78 09/12/24 08:15 Respiratory Rate 14 09/12/24 08:15 Blood Pressure 119/69 09/12/24 08:15 Pulse Oximetry 99 09/12/24 08:15 Temperature 36.8 C 09/12/24 08:15 Temperature Source Tympanic 09/12/24 08:15 Pulse 78 09/12/24 08:15 Respiratory Rate 14 09/12/24 08:15 Blood Pressure 119/69 09/12/24 08:15 Blood Pressure Position Sitting 09/12/24 08:15 Pulse Oximetry 99 09/12/24 08:15 Oxygen Delivery Method Room Air 09/12/24 08:15 Oxygen Flow Rate 0 09/12/24 08:15 Pain Level 8 09/12/24 08:15 Medical Decision Making Patient is a pleasant [id number] 24-year-old female presented with chief complaint of left arm pain. She reports that she fell descension some ice at work about 2 days ago. She was seen yesterday at outside hospital for evaluation of the left wrist as she did have some bruising over the ulnar aspect and palmar side of the left wrist. X-rays were obtained at that point and she was advised that there is no evidence to suggest fracture or dislocation. They applied an Wallace wrap and patient was discharged to home. She reports that since then she has noted that she can occasionally get some tingling when the hand begins to swell with Wallace wrap on the arm and has had some discomfort in the left elbow and left shoulder prompting her to come in for evaluation. States that she can intermittently get paresthesias, the seem to be mainly associated when she is wearing the Wallace wrap and the long radial nerve distribution. She denies any other injury the time of the incident. She denies trigger head, no loss of consciousness. She denies any neck or back pain. On exam, patient appears nontoxic. Resting comfortably no acute distress. Exam left upper extremity shows it to be neurovascular intact. No evidence to suggest axillary nerve dysfunction or other neurologic sequela of her fall. She is 2+ distal pulses. Intact capillary refill. She is full range of motion of the arm but she does have pain to rigidity with forward elevation actively past 120 degrees of the left shoulder as well as discomfort with internal rotation. Pain is primarily over the deltoid. No swelling, ecchymosis or deformities appreciated. This does not seem to be causing any deficits to the rotator cuff is, the exam is somewhat limited due to pain, there is no weakness appreciable at the rotator cuff. She has full range of motion of the left elbow, pain procedure primarily over the lateral epicondyle and worsened with movements of the left wrist. She does have small area of ecchymosis that was described prior but no neurologic deficit in the left hand. No pain over the anatomical snuffbox. As patient had x-rays of the left wrist at outside hospital yesterday, I do not see need for repeating this today. Feel that it is more appropriate to continue to examine untested areas. As she has found the Wallace wrap to be problematic, particularly due to swelling, will transition her to a brace for the left wrist. X-rays were reviewed by radiologist and myself, no acute abnormality of the left elbow or left shoulder. Patient discussed continued management. She is feeling improved with the brace on and does this find that this helps with the elbow pain as well. Advised contusion. Encouraged rest, ice, elevation. Tylenol and ibuprofen as needed for discomfort. She will take as directed on the packaging. Return precautions were discussed. Advise follow-up with primary care. We discussed activities that she should avoid that could cause increased discomfort. All of her questions and concerns were addressed and she is in agreement this plan. Quality:[facility] Health Related Social Needs: No Data to Display PFSH All Active Problems (Updated 09/12/24 @ 09:34 by EZEQUIEL Silver) Contusion of arm, left (Acute) Left arm pain (Acute) Skin lesion (Acute) left shoulder Lump of skin (Acute) Allergies (Acute) Hallux valgus of left foot (Acute) Onychomycosis (Acute) Anxiety and depression (Chronic) Insomnia (Acute) Headache (Acute) Rash (Acute) COVID-19 (Acute) Genital herpes (Acute) HSV PCR blood test negative for HSV 1&2 09/08/2019 Allergic rhinitis due to pollen (Chronic 08/20/17) Medical History Astigmatism Incomplete miscarriage Asthma Surgical History S/P matrixectomy of toe of right foot H/O dilation and curettage History of surgical procedure (~09/2018) left middle finger Family History Mother Asthma Hypertension Father No problems noted. Sister No problems noted. Brother No problems noted. Maternal Grandfather , 50 Heart disease Maternal Grandmother No problems noted. Paternal Grandmother No problems noted. Social History Smoking/Tobacco Use Status: Never Smoking risk assessment performed?: Yes Alcohol Intake: never Drug use: Never Substance use type: does not use Caregiver/Support person: No Household members: other Details: parents Housing: house Communication Needs: None Do you need help understanding health information?: Never Pets and animals: Yes Pets and animals: cat(s), dog(s) and farm animals Sexually active: No Do you think of yourself as: straight/heterosexual Current gender identity: female What is your relationship status?: refused to answer How often do you talk on the phone with friends or family?: once per week How often do you get together with friends or relatives?: never How often do you attend jainism or rastafarian services?: decline to answer Do you belong to any clubs or organized social groups?: no Panel score (0-1 are the most socially isolated patients): 0 What type of physical activity do you participate in: none Seatbelt use: always Helmet use: Yes Helmet use: always Drive intox or ride w/intox driver manager: No Do you feel safe at home: Yes Do you feel safe in your relationship?: Yes Additional Social history: boyfriend at bedside. Female Reproductive History Menstrual control method: progesterone injection History History 1 Para 0 Hx # Term Pregnancies Multiple births Hx # Pregnancies Ectopic pregnancies AB induced Hx Number of Living Children AB spontaneous 1
[2024-09-12] MEDS: Ibuprofen 600 MG TAB PO (08:32)
--- NOTE | 2024-09-12 08:45 | DI.RAD_ITS ---
Exam(s) XR SHOULDER LT COMPLETE 2+V EXAM: XR SHOULDER LT COMPLETE 2+V CLINICAL HISTORY: lateral pain after fall. TECHNIQUE: 2D digital imaging was performed. Three views. COMPARISON: CR,XR XR SHOULDER RT COMPLETE 2+V from 06/03/2022 FINDINGS: BONES: No acute fracture is present. No bony destructive lesion is seen. JOINTS: No dislocation present. SOFT TISSUE: Normal. IMPRESSION: Unremarkable radiographs of the left shoulder. DATA REPOSITORY: RADIATION DOSE DELIVERED:
--- NOTE | 2024-09-12 08:50 | DI.RAD_ITS ---
Exam(s) XR ELBOW LT COMPLETE EXAM: XR ELBOW LT COMPLETE CLINICAL HISTORY: FOOSH, lateral pain. TECHNIQUE: 2D digital imaging was performed. Three views. COMPARISON: No exams were available for comparison FINDINGS: BONES: No acute fracture is present. No bony destructive lesion is seen. JOINTS: The elbow is normally aligned. No joint effusion is seen. SOFT TISSUE: Normal. IMPRESSION: Unremarkable radiographs of the left elbow. DATA REPOSITORY: RADIATION DOSE DELIVERED:
== END 2024-09-12 09:41 | disposition home or self-care (01) ==
PROVIDERS: Emergency Provider Physician Assistant; PCP Nurse Practitioner Family
DX: S40.022A Contusion of left upper arm, initial encounter (principal); W19.XXXA Unspecified fall, initial encounter
CPT/HCPCS: 81025; 99284; 73030; 73080; 99283

== ENCOUNTER 2025-01-11 07:53 | Emergency (ER) | payer MEDICAID, SELFPAY ==
[2025-01-11 07:54] VITALS: BP 123/56; PULSE 96; RESP 15; O2SAT 100
[2025-01-11 08:01] VITALS: BP 123/56; PULSE 96; RESP 15; O2SAT 100
[2025-01-11 08:14] VITALS: TEMP 36.8
--- NOTE | 2025-01-11 08:18 | W.ED.GENAD ---
Discharge Plan Disposition Patient Disposition: Home Condition: Stable Discharge Details Clinical Impression: Nausea and vomiting during Primary Care Provider: Darryn Moreno ED Provider: Keyla Bruce Home Meds and New Rx's Prescriptions: New pyridoxine (vitamin B6) 25 mg tablet 25 mg PO TID PRNQty: 30 0RF doxylamine succinate 25 mg tablet 12.5 mg PO Q6H PRNQty: 30 0RF No Action clonidine HCl 0.1 mg tablet 0.1 mg PO BID MDD 2 tabs PRN (Reason: agitation) Qty: 60 1RF fluticasone propionate [Flonase Allergy Relief] 50 mcg/actuation spray,suspension 1 spray intranasal BID Qty: 16 4RF Rx Instructions: administer into each nostril Aurovela 24 Fe 1 mg-20 mcg (24)/75 mg (4) tablet 1 tab PO DAILY Qty: 84 3RF fluoxetine 20 mg capsule 20 mg PO DAILY Qty: 90 4RF Claritin Liqui-Gel 10 mg capsule 10 mg PO DAILY Qty: 90 4RF montelukast 10 mg tablet 10 mg PO DAILY Qty: 90 4RF Arnuity Ellipta 50 mcg/actuation blister with device 1 inh inhalation Q24H Qty: 90 3RF acetaminophen [Tylenol] 325 MG tablet 1 tab PO PRN PRN Discharge Instructions Instructions: Morning Sickness ED Additional Instructions: You were seen in the emergency department today for evaluation of nausea and vomiting in early . In our department you do full physical examination performed, and had laboratory studies that were reassuring, though you did have evidence of dehydration. You received fluids, and medications for your nausea and were able to tolerate water while you are here in the emergency department. It is very important that we maintain your hydration, and for this reason I have sent a prescription for 2 medications. Please take the pyridoxine (vitamin B6), every 8 hours as needed for nausea. You can try adding the doxylamine, also known as Unisom [id number], but I recommend that you cut the dose in half until you know how it will affect you. You need to return for a formal ultrasound, I have put this order in at our hospital. Please reach out to [facility]'s OB service to discuss follow-up and neck steps in your workup for early . Thank you for allowing us to be part of your care. Discharge Orders Other Ambulatory Orders: US abdomen & pelvis (Routine) Timeframe: 1 Day Facility: [facility] - Location: DIAGNOSTIC IMAGING Ordered By: Keyla Bruce HPI General Mode of arrival: ambulatory. Date/Time Provider Initiated Documentation: 01/11/25 07:58. Limitations to Documentation: no limitations. Information obtained by: patient, family and old records reviewed. HPI Narrative: This is a 24-year-old female patient, G4, P1 at an estimated 5 weeks gestation by last menstrual cycle, presenting for evaluation of nausea and vomiting. The patient reports that she had severe nausea and vomiting during her last , but this time it is started earlier, and has felt more severe. She started throwing up yesterday, states that she has not been able to keep anything down since yesterday, and is worried about dehydration. She reports that she has some cramping in her abdomen during vomiting, as well as some lower back pain. She is not experiencing any vaginal bleeding or damage discharge, denies dysuria, has not had fevers or chills. No changes in bowel habits. She is O- and states that she received RhoGAM during her last . She plans to deliver at [facility], has not yet had her first OB appointment. Her last delivery 10 months ago was by . Related Data Home Medications ?Medication ?Instructions ?Recorded ?Confirmed loratadine 10 mg capsule (Claritin 10 mg PO DAILY #90 caps 11/11/14 01/11/25 Liqui-Gel) acetaminophen 325 mg tablet 1 tab PO PRN PRN 06/13/15 01/11/25 (Tylenol) fluoxetine 20 mg capsule 20 mg PO DAILY #90 caps 05/30/24 01/11/25 montelukast 10 mg tablet 10 mg PO DAILY #90 tabs 05/30/24 01/11/25 fluticasone furoate 50 1 inh inhalation Q24H #90 ea 06/30/24 01/11/25 mcg/actuation blister powder for inhalation (Arnuity Ellipta) clonidine HCl 0.1 mg tablet 0.1 mg PO BID PRN agitation #60 09/25/24 01/11/25 tabs fluticasone propionate 50 1 spray intranasal BID #16 grams 09/25/24 01/11/25 mcg/actuation nasal spray,suspension (Flonase Allergy Relief) norethindrone 1 mg-ethinyl 1 tab PO DAILY #84 tabs 09/25/24 01/11/25 estradiol 20 mcg (24)-iron 75 mg (4) tablet (Aurovela 24 Fe) Held on 01/11/25. Instructions: Pt currently doxylamine succinate 25 mg tablet 12.5 mg (1/2 x 25 mg) PO Q6H PRN 01/11/25 #30 tabs pyridoxine (vitamin B6) 25 mg 25 mg PO TID PRN #30 tabs 01/11/25 tablet Previous Rx's ?Medication ?Instructions ?Recorded loratadine 10 mg capsule (Claritin 10 mg PO DAILY #90 caps 11/11/14 Liqui-Gel) fluoxetine 20 mg capsule 20 mg PO DAILY #90 caps 05/30/24 montelukast 10 mg tablet 10 mg PO DAILY #90 tabs 05/30/24 fluticasone furoate 50 1 inh inhalation Q24H #90 ea 06/30/24 mcg/actuation blister powder for inhalation (Arnuity Ellipta) clonidine HCl 0.1 mg tablet 0.1 mg PO BID PRN agitation #60 09/25/24 tabs fluticasone propionate 50 1 spray intranasal BID #16 grams 09/25/24 mcg/actuation nasal spray,suspension (Flonase Allergy Relief) norethindrone 1 mg-ethinyl 1 tab PO DAILY #84 tabs 09/25/24 estradiol 20 mcg (24)-iron 75 mg (4) tablet (Aurovela 24 Fe) Held on 01/11/25. Instructions: Pt currently doxylamine succinate 25 mg tablet 12.5 mg (1/2 x 25 mg) PO Q6H PRN 01/11/25 #30 tabs pyridoxine (vitamin B6) 25 mg 25 mg PO TID PRN #30 tabs 01/11/25 tablet Allergies Allergy/AdvReac Type Severity Reaction Status Date / Time Sulfa (Sulfonamide Allergy Severe Anaphylaxsi Unverified 01/11/25 07:58 Antibiotics) s sulfamethoxazole (From Allergy Severe Anaphylaxis Unverified 09/25/24 07:53 Bactrim) trimethoprim (From Bactrim) Allergy Severe Anaphylaxis Unverified 01/11/25 07:58 mold Allergy Intermediate Swelling/Ed Unverified 01/11/25 07:58 adrianna pneumococcal vaccine Allergy Mild Contraindic Unverified 01/11/25 07:58 ated pollen extracts Allergy Mild Wheezing Unverified 01/11/25 07:58 doxycycline AdvReac Severe Nausea Unverified 01/11/25 07:58 diphenhydramine (From AdvReac Contraindic Unverified 01/11/25 07:58 Benadryl) ated General Stated Complaint: Nausea/Vomit/Diar JORGE L: 4 Exam Narrative Exam Narrative: Gen: Awake and alert, in no apparent distress HEENT: Non-icteric sclera Neck: Supple Lungs: No apparent respiratory distress, normal respiratory effort. CV: Appears well perfused, strong distal pulses Abdomen: Non-distended, soft, tender to palpation throughout without rigidity, rebound, or guarding MSK: Moves 4 extremities without apparent limitation in ROM Skin: Visualized skin without rashes, cyanosis. Neuro: Normal Gait, no obvious focal deficits or facial asymmetry. Speaks in full, clear sentences. Psych: Appropriate for situation. Course Vital Signs Vital signs: Vital Signs Pulse 96 H 01/11/25 07:54 Respiratory Rate 15 01/11/25 07:54 Blood Pressure 123/56 L 01/11/25 07:54 Pulse Oximetry 100 01/11/25 07:54 Temperature 36.8 C 01/11/25 08:14 Temperature Source Oral 01/11/25 08:14 Pulse 96 H 01/11/25 08:01 Respiratory Rate 15 01/11/25 08:01 Blood Pressure 123/56 L 01/11/25 08:01 Blood Pressure Position Sitting 01/11/25 08:01 Pulse Oximetry 100 01/11/25 08:01 Oxygen Delivery Method Room Air 01/11/25 08:01 Oxygen Flow Rate 0 01/11/25 08:01 Pain Level 0 01/11/25 08:01 Medical Decision Making This is a 24-year-old female patient presenting for evaluation of nausea and vomiting in early . My differential includes but is not limited to hyperemesis gravidarum, certainly considered ectopic , molar , no vaginal bleeding or discharge to significantly increase my concern for miscarriage. No symptoms of fever or vaginal discharge to increase my concern for PID or TOA. Certainly considered metabolic derangements, dehydration, kidney injury. Considered other intra-abdominal pathology including pancreatitis, cholecystitis, appendicitis. We will obtain laboratory studies to include CBC, CMP, magnesium, lipase, beta quant, and urinalysis. I will perform a bedside ultrasound, and provide the patient with a liter of IV fluids and Reglan. Will hold on Benadryl due to her documented intolerace. I independently interpreted the laboratory studies, which show no significant leukocytosis, anemia, or thrombocytopenia. The chemistry panel is without evidence of electrolyte abnormality, kidney dysfunction, or liver injury. Lipase is low, beta quant is appropriately elevated at 60,000. Urinalysis with ketones but no other concerning infectious findings. The bedside ultrasound performed shows a gestational sac and a small amount of free fluid posterior to the uterus, for which I did discuss with CUSTOMER SUCCESS MANAGER, who feels reassured by the presence of a gestational sac and feels that ectopic is less likely. I do think that it would be beneficial for this patient to have her undergo formal ultrasound, and have placed an order for this to be done at our facility tomorrow. After fluids and Reglan the patient was able to tolerate oral water, I did provide her with some oral pyridoxine for some ongoing nausea, but I am reassured that she will be able to maintain her hydration in the outpatient environment. I have provided her with a prescription for pyridoxine as well as Unisom, which she should use with caution given her Benadryl history, but could trial as a second line agent. At this time, the patient has had a full medical evaluation and is safe for discharge to home. They are hemodynamically stable, ambulatory, and tolerating PO. They are understanding of the follow-up plan and return precautions. They left our facility without incident. Keyla Bruce MD [facility] All Active Problems (Updated 01/11/25 @ 10:01 by Keyla Burce MD) Nausea and vomiting during (Acute) Skin lesion (Acute) left shoulder Lump of skin (Acute) Allergies (Acute) Hallux valgus of left foot (Acute) Onychomycosis (Acute) Anxiety and depression (Chronic) Insomnia (Acute) Headache (Acute) Rash (Acute) COVID-19 (Acute) Genital herpes (Acute) HSV PCR blood test negative for HSV 1&2 09/08/2019 Allergic rhinitis due to pollen (Chronic 08/20/17) Medical History Astigmatism Incomplete miscarriage Asthma Surgical History S/P matrixectomy of toe of right foot H/O dilation and curettage History of surgical procedure (~09/2018) left middle finger Family History Mother Asthma Hypertension Father No problems noted. Sister No problems noted. Brother No problems noted. Maternal Grandfather , 50 Heart disease Maternal Grandmother No problems noted. Paternal Grandmother No problems noted. Social History Smoking/Tobacco Use Status: Never Smoking risk assessment performed?: Yes Alcohol Intake: never Drug use: Never Substance use type: does not use Caregiver/Support person: No Household members: other Details: parents Housing: house Communication Needs: None Do you need help understanding health information?: Never Pets and animals: Yes Pets and animals: cat(s), dog(s) and farm animals Sexually active: No Do you think of yourself as: straight/heterosexual Current gender identity: female What is your relationship status?: refused to answer How often do you talk on the phone with friends or family?: once per week How often do you get together with friends or relatives?: never How often do you attend episcopalian or cheondoism services?: decline to answer Do you belong to any clubs or organized social groups?: no Panel score (0-1 are the most socially isolated patients): 0 What type of physical activity do you participate in: none Seatbelt use: always Helmet use: Yes Helmet use: always Drive intox 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 Female Reproductive History Menstrual control method: progesterone injection History History 1 Para 0 Hx # Term Pregnancies Multiple births Hx # Pregnancies Ectopic pregnancies AB induced Hx Number of Living Children AB spontaneous 1 POCUS Exam (ED) Limited OB Exam DATE OF EXAM:: 01/11/25 TIME OF EXAM:: 08:39 PROVIDER THAT PERFORMED THE STUDY: Keyla Bruce Type of Exam: Pelvic OB Trans Abdominal REASON FOR EXAM: Abdominal Pain VISUALIZED STRUCTURES: Gestational sac, Uterus and Other structure: Right upper quadrant and left upper quadrant views obtained, I do not note evidence of free fluid (I do note the gallbladder in the right upper quadrant confirmed in alternate views. PERTINENT FINDINGS/IMPRESSION: Free fluid (Small amount of free fluid posterior to the uterus) and other impression: Gestational sac without notable pole Exam Complete.
[2025-01-11] MEDS: Metoclopramide 10 MG/2 ML VIAL 5 MG IVP (08:23)
[2025-01-11] MEDS: Lactated Ringers 1,000 ML 1000 ML IV (08:25)
[2025-01-11 08:40] LABS: Abs Immature Grans 0.06 10^3/uL (0.0-0.06); Absolute Basophil Count 0.06 10^3/uL (0.0-0.2); Absolute Eosinophil Count 0.01 10^3/uL (0.0-0.7); Absolute Lymphocyte Count 2.12 10^3/uL (1.2-3.4); Absolute Monocyte Count 0.57 10^3/uL (0.1-0.8); Basophils % 0.5 %; Eosinophils % 0.1 %; HCT 43.5 % (36.0-46.0); HGB 14.4 g/dL (11.2-15.7); Immature Grans % 0.5 %; Lymphocytes % 18.8 %; MCH 28.6 pg (27.0-33.0); MCHC 33.1 % (32.0-36.0); MCV 86 fL (80-95); MPV 9.6 fL (8.0-11.0); Monocytes % 5.1 %; Platelet Count 341 10^3/uL (130-400); RBC 5.04 10^6/uL (3.93-5.22); RDW 11.9 % (11.7-14.6); RDW-SD 37.5 fL; WBC 11.25 10^3/uL (4.4-10.8)
[2025-01-11 08:44] LABS: Absolute Neutrophil Count 8.44 10^3/uL (1.2-6.7)
[2025-01-11 08:55] LABS: ALT 22 U/L (14-59); AST 13 U/L (15-37); Albumin 4.7 g/dL (3.4-5.0); Alkaline Phosphatase 53 U/L (46-116); Anion Gap 12.8 mmol/L (3-11); BUN 10 mg/dL (7-18); Bilirubin, Total 0.6 mg/dL (0.2-1.0); CO2 24.2 mmol/L (21.0-32.0); CREATININE 0.7 mg/dL (0.55-1.02); Calcium 9.4 mg/dL (8.5-10.1); Chloride 101 mmol/L (98-107); Estimated GFR 123.78 (mL/min/1.73m2); Glucose 83 mg/dL (74-106); Lipase 20 U/L (<78); Sodium 138 mmol/L (136-145); Total Protein 8.3 g/dL (6.4-8.2)
[2025-01-11 09:35] LABS: HCG Quant, Pregnancy 60169 mIU/mL (1-3)
[2025-01-11 10:01] LABS: Bilirubin Negative (Negative); Blood Negative (Negative); Clarity Sl Cloudy (Clear); Glucose Negative (Negative); Ketones >=160 mg/dL (Negative); Leukocyte Esterase Negative (Negative); Nitrite Negative (Negative); Urobilinogen 0.2 mg/dL (Up to 0.2); pH 6.5 (5-8)
== END 2025-01-11 10:33 | disposition home or self-care (01) ==
PROVIDERS: Emergency Provider Emergency Medicine; PCP Nurse Practitioner Family
DX: Z3A.01 Less than 8 weeks gestation of pregnancy; O21.8 Other vomiting complicating pregnancy
CPT/HCPCS: 99283 ×2; 36415; 76815; 80053; 83690; 86850; 86900; 86901; 81003; 83735; 84702; 85025; J2765

== ENCOUNTER 2025-01-19 02:47 | Outpatient (CLI) | payer MEDICAID, SELFPAY ==
--- NOTE | 2025-01-19 | DI.US_ITS ---
Exam(s) US OB 1ST TRIMESTER EXAM: US OB 1ST TRIMESTER CLINICAL HISTORY: orders, bleeding in 1st tri. TECHNIQUE: First trimester obstetrical ultrasound was performed. COMPARISON: US POCUS EXAM from 01/11/2025 US US ABDOMEN from 01/19/2025 FINDINGS: There is an intrauterine gestational sac which contains a normal appearing 3 mm diameter yolk sac and viable pole which exhibits heart rate of 144 bpm. [place]-rump length measurement is 12 mm, corresponding to 7 weeks and 3 days gestational age. There is no evidence of subchorionic hemorrhage. Maternal ovaries: Right ovary measures 3.4 x 2.3 x 2.6 and contains a simple non septated cyst measuring 3 x 2 x 2.3 cm. Left ovary measures 2.4 x 1.2 x 1.4 cm. There are no obvious abnormal extra ovarian adnexal masses. There is a small amount of fluid in the cul-de-sac. IMPRESSION:: Single viable intrauterine gestation which is approximately 7 weeks and 3 days gestational age by crown rump length measurement, implying HOLLIE of 09/04/2025, 2020. There is no evidence of subchorionic hemorrhage. There is a 3 x 2 x 2.3 cm cyst in the right ovary. There is a small amount of fluid in the cul-de-sac. DATA REPOSITORY:
--- NOTE | 2025-01-19 09:55 | DI.US_ITS ---
Exam(s) US ABDOMEN EXAM: US ABDOMEN CLINICAL HISTORY: pain, nausea in early , r/o ectopic, O21.9 TECHNIQUE: Ultrasound of complete upper abdomen performed using standard protocol. COMPARISON: US POCUS EXAM from 01/11/2025 FINDINGS: There is no ascites evident. LIVER: There are no hepatic lesions evident nor obvious dilatation of intrahepatic ducts. GALLBLADDER/BILIARY: Gallbladder is partially contracted. Patient is apparently postprandial. However, there are no obvious gallstones nor evidence of acute gallbladder pathology. The common hepatic duct isnot dilated, measuring 2mm at the level of sonia hepatis. PANCREAS: There is no evidence of pancreatic mass nor dilatation of the pancreatic duct. SPLEEN: The spleen is not enlarged and there are no intrasplenic lesions evident. KIDNEYS:Kidneys exhibit normal size with no evidence of solid mass, calculus, nor hydronephrosis. No cortical cysts evident. ABDOMINAL AORTA: There is no evidence of abdominal aortic aneurysm. IVC: Normal diameter where visualized. IMPRESSION: 1. No evidence of cholelithiasis nor dilatation of the biliary tree. 2. No other significant ultrasound findings in the upper abdomen. 3. There is no ascites. DATA REPOSITORY:
== END 2025-01-19 03:07 ==
LOC: DI 02:47
PROVIDERS: PCP Nurse Practitioner Family; Visit Provider Emergency Medicine
DX: O21.9 Vomiting of pregnancy, unspecified (principal)
CPT/HCPCS: 76700; 76801

== ENCOUNTER 2025-01-22 11:19 | Emergency (ER) | payer MEDICAID, SELFPAY ==
[2025-01-22 11:24] VITALS: BP 116/79; PULSE 66; RESP 20; TEMP 36.8; O2SAT 98
--- NOTE | 2025-01-22 11:33 | W.ED.GENAD ---
Discharge Plan Disposition Patient Disposition: Home Discharge Details Clinical Impression: Ketonuria, Hyperemesis gravidarum, Increased anion gap metabolic acidosis Primary Care Provider: Darryn Moreno ED Provider: Greg Templeton Home Meds and New Rx's Prescriptions: Continued clonidine HCl 0.1 mg tablet 0.1 mg PO BID MDD 2 tabs PRN (Reason: agitation) Qty: 60 1RF fluticasone propionate [Flonase Allergy Relief] 50 mcg/actuation spray,suspension 1 spray intranasal BID Qty: 16 4RF Rx Instructions: administer into each nostril fluoxetine 20 mg capsule 20 mg PO DAILY Qty: 90 4RF Claritin Liqui-Gel 10 mg capsule 10 mg PO DAILY Qty: 90 4RF montelukast 10 mg tablet 10 mg PO DAILY Qty: 90 4RF Arnuity Ellipta 50 mcg/actuation blister with device 1 inh inhalation Q24H Qty: 90 3RF acetaminophen [Tylenol] 325 MG tablet 1 tab PO PRN PRN pyridoxine (vitamin B6) 25 mg tablet 25 mg PO TID PRNQty: 30 0RF Discharge Instructions Instructions: Hyperemesis Gravidarum (DC) Additional Instructions: You are seen in the emergency department for your nausea and vomiting. Your blood work showed that you are dehydrated. Please take these nausea medications as needed. Please return if you cannot eat or drink or if you do not urinate at least once every 8 hours while awake. Otherwise please follow-up with your OB team next week. Discharge Data Discharge Date/Time-TO BE ENTERED AT DEPARTURE: 01/22/25 14:29 HPI General Date/Time Provider Initiated Documentation: 01/22/25 11:33. HPI Narrative: MDM This is an overall very well-appearing normothermic and not tachycardic G2, P1 at 7 weeks with nausea and vomiting concerning for the possibility of hyperemesis gravidarum for which patient will receive D5 NS. Patient has reassuring heart rate. In the absence of any vaginal bleeding or any gush of fluids I did not feel that she required a repeat transvaginal ultrasound. Patient did have a transvaginal ultrasound performed earlier this week showing a single viable intrauterine gestation with approximately 7 weeks 3 days. No pain out of proportion to suggest necrotizing soft tissue infection. Soft nontender abdomen some not suspicious for any intra-abdominal infection. Specifically no right lower quadrant tenderness to suggest appendicitis. No left lower quadrant tenderness nor diarrhea to suggest diverticulitis. No dysuria nor frequency to suggest urinary tract infection. Nonetheless given status I ordered a urinalysis and a dedicated urine culture. No epigastric pain no history of obesity to suggest increased risk for pancreatitis I did not send a lipase. Will reassess labs treat with ondansetron. 4PM Patient is tolerating p.o. she picked up her pyridoxine but unfortunately pharmacy did not have doxylamine succinate. We discussed trial of ondansetron and I gave her a short course to use as needed. We discussed theoretical risks of cardiac defects. We also discussed advantages of deferring further ED visits preventing dehydration. We discussed ED return for nausea, recurrent vomiting, abdominal pain, vaginal bleeding or any other concerns. She understood her return indications that was discharged with empiric trial of expectant outpatient management. HPI This is a 7-week patient presenting with nausea and vomiting. The patient reports that the nausea and vomiting began 3 days ago. Initially, she was able to keep some food and water down, but since yesterday, she has been unable to retain any food or liquids. She describes the discomfort associated with vomiting but reports no other abdominal pain or vaginal bleeding. She has not yet sought medical attention for this but has an appointment scheduled for 02/04/2025. The patient has not experienced any sudden gush of fluids or bleeding. She urinates once or twice a day without any burning sensation. An ultrasound was performed on 01/19/2025, which showed normal results. During her first , she experienced nausea and vomiting, but it was less severe and occurred later in the . She has tried grape soda as a remedy, based on her mother's advice, but it did not alleviate her symptoms. Exam General: Well-appearing in no acute distress speaking in complete sentences. Head: Normocephalic, atraumatic. Eye: Extraocular eye movements intact. No conjunctival injection. No scleral icterus. Ear, nose, mouth, throat: Grossly normal inspection. Normal voice, handling secretions normally. Neck: Trachea midline. Cardiovascular: Well-perfused distal extremities. Respiratory: Nonlabored respiration. Gastrointestinal: Nondistended abdomen. Soft nontender abdomen. No rebound. No guarding. Musculoskeletal: No edema. Moving all 4 extremities spontaneously. Skin: Normal for age and race, grossly normal temperature and turgor. No acute rash. Neurologic: Alert and appropriate, no apparent acute deficits. Psychiatric: Mood and manner are appropriate. Grooming and personal hygiene are appropriate. Related Data Home Medications ?Medication ?Instructions ?Recorded ?Confirmed loratadine 10 mg capsule (Claritin 10 mg PO DAILY #90 caps 11/11/14 01/22/25 Liqui-Gel) acetaminophen 325 mg tablet 1 tab PO PRN PRN 06/13/15 01/22/25 (Tylenol) fluoxetine 20 mg capsule 20 mg PO DAILY #90 caps 05/30/24 01/22/25 montelukast 10 mg tablet 10 mg PO DAILY #90 tabs 05/30/24 01/22/25 fluticasone furoate 50 1 inh inhalation Q24H #90 ea 06/30/24 01/22/25 mcg/actuation blister powder for inhalation (Arnuity Ellipta) clonidine HCl 0.1 mg tablet 0.1 mg PO BID PRN agitation #60 09/25/24 01/22/25 tabs fluticasone propionate 50 1 spray intranasal BID #16 grams 09/25/24 01/22/25 mcg/actuation nasal spray,suspension (Flonase Allergy Relief) pyridoxine (vitamin B6) 25 mg 25 mg PO TID PRN #30 tabs 01/22/25 01/22/25 tablet Previous Rx's ?Medication ?Instructions ?Recorded loratadine 10 mg capsule (Claritin 10 mg PO DAILY #90 caps 11/11/14 Liqui-Gel) fluoxetine 20 mg capsule 20 mg PO DAILY #90 caps 05/30/24 montelukast 10 mg tablet 10 mg PO DAILY #90 tabs 05/30/24 fluticasone furoate 50 1 inh inhalation Q24H #90 ea 06/30/24 mcg/actuation blister powder for inhalation (Arnuity Ellipta) clonidine HCl 0.1 mg tablet 0.1 mg PO BID PRN agitation #60 09/25/24 tabs fluticasone propionate 50 1 spray intranasal BID #16 grams 09/25/24 mcg/actuation nasal spray,suspension (Flonase Allergy Relief) pyridoxine (vitamin B6) 25 mg 25 mg PO TID PRN #30 tabs 01/22/25 tablet Allergies Allergy/AdvReac Type Severity Reaction Status Date / Time Sulfa (Sulfonamide Allergy Severe Anaphylaxsi Verified 01/22/25 11:21 Antibiotics) s sulfamethoxazole (From Allergy Severe Anaphylaxis Verified 01/22/25 11:21 Bactrim) trimethoprim (From Bactrim) Allergy Severe Anaphylaxis Verified 01/22/25 11:21 mold Allergy Intermediate Swelling/Ed Verified 01/22/25 11:21 adrianna pneumococcal vaccine Allergy Mild Contraindic Verified 01/22/25 11:21 ated pollen extracts Allergy Mild Wheezing Verified 01/22/25 11:21 doxycycline AdvReac Severe Nausea Verified 01/22/25 11:21 diphenhydramine (From AdvReac Contraindic Verified 01/22/25 11:21 Benadryl) ated General Stated Complaint: Nausea/Vomit/Diar JORGE L: 3 Course Vital Signs Vital signs: Vital Signs Temperature 36.8 C 01/22/25 11:24 Pulse 66 01/22/25 11:24 Respiratory Rate 20 01/22/25 11:24 Blood Pressure 116/79 01/22/25 11:24 Pulse Oximetry 98 01/22/25 11:24 Temperature 36.8 C 01/22/25 11:24 Temperature Source Oral 01/22/25 11:24 Pulse 66 01/22/25 11:24 Respiratory Rate 20 01/22/25 11:24 Blood Pressure 116/79 01/22/25 11:24 Blood Pressure Position Sitting 01/22/25 11:24 Pulse Oximetry 98 01/22/25 11:24 Oxygen Delivery Method Room Air 01/22/25 11:24 Oxygen Flow Rate 0 01/22/25 11:24 Pain Level 0 01/22/25 11:24 PFSH All Active Problems (Updated 01/22/25 @ 13:14 by Greg Templeton MD) Increased anion gap metabolic acidosis (Acute) Hyperemesis gravidarum (Acute) Ketonuria (Acute) Nausea and vomiting during (Acute) Skin lesion (Acute) left shoulder Lump of skin (Acute) Allergies (Acute) Hallux valgus of left foot (Acute) Onychomycosis (Acute) Anxiety and depression (Chronic) Insomnia (Acute) Headache (Acute) Rash (Acute) COVID-19 (Acute) Genital herpes (Acute) HSV PCR blood test negative for HSV 1&2 09/08/2019 Allergic rhinitis due to pollen (Chronic 08/20/17) Medical History Astigmatism Incomplete miscarriage Asthma Surgical History S/P matrixectomy of toe of right foot H/O dilation and curettage History of surgical procedure (~09/2018) left middle finger Family History Mother Asthma Hypertension Father No problems noted. Sister No problems noted. Brother No problems noted. Maternal Grandfather , 50 Heart disease Maternal Grandmother No problems noted. Paternal Grandmother No problems noted. Social History Smoking/Tobacco Use Status: Never Smoking risk assessment performed?: Yes Alcohol Intake: never Drug use: Never Substance use type: does not use Caregiver/Support person: No Household members: other Details: parents Housing: house Communication Needs: None Do you need help understanding health information?: Never Pets and animals: Yes Pets and animals: cat(s), dog(s) and farm animals Sexually active: No Do you think of yourself as: straight/heterosexual Current gender identity: female What is your relationship status?: refused to answer How often do you talk on the phone with friends or family?: once per week How often do you get together with friends or relatives?: never How often do you attend jainism or nondenominational services?: decline to answer Do you belong to any clubs or organized social groups?: no Panel score (0-1 are the most socially isolated patients): 0 What type of physical activity do you participate in: none Seatbelt use: always Helmet use: Yes Helmet use: always Drive 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 Female Reproductive History Menstrual control method: progesterone injection History History 1 Para 0 Hx # Term Pregnancies Multiple births Hx # Pregnancies Ectopic pregnancies AB induced Hx Number of Living Children AB spontaneous 1 POCUS Exam (ED) Limited OB Exam DATE OF EXAM:: 01/22/25 TIME OF EXAM:: 12:09 PROVIDER THAT PERFORMED THE STUDY: Greg Templeton Type of Exam: Pelvic OB Trans Abdominal REASON FOR EXAM: other () indication: heart rate Exam Complete. INCIDENTAL FINDINGS: Reassuring heart rate at 154 bpm. Limited Pelvic Exam PROVIDER THAT PERFORMED THE STUDY: Greg Templeton IS THIS A REPEAT EXAM DURING THIS ENCOUNTER: No Type of Exam: Pelvic Trans Abdominal Exam REASON FOR EXAM: Other indication: VISUALIZED STRUCTURES: Uterus PERTINENT FINDINGS/IMPRESSION: Other impression: heart rate [ ] beats per minute Exam Complete
[2025-01-22] MEDS: Ondansetron 4 MG/2 ML VIAL IVP (11:54)
[2025-01-22] MEDS: DEXTROSE 5%-0.9% SALINE 1,000 ML 1000 ML IV (11:55)
[2025-01-22 12:10] LABS: Abs Immature Grans 0.06 10^3/uL (0.0-0.06); HCT 42.1 % (36.0-46.0); HGB 14.2 g/dL (11.2-15.7); Immature Grans % 0.5 %; MCH 28.7 pg (27.0-33.0); MCHC 33.7 % (32.0-36.0); MCV 85 fL (80-95); MPV 9.4 fL (8.0-11.0); Platelet Count 357 10^3/uL (130-400); RBC 4.95 10^6/uL (3.93-5.22); RDW 12.0 % (11.7-14.6); RDW-SD 36.7 fL; WBC 13.28 10^3/uL (4.4-10.8)
[2025-01-22 12:24] VITALS: BP 113/62; PULSE 81; RESP 16; TEMP 35.5; O2SAT 99
[2025-01-22 12:54] LABS: Anion Gap 14.5 mmol/L (3-11); BUN 11 mg/dL (7-18); CO2 22.5 mmol/L (21.0-32.0); Calcium 9.5 mg/dL (8.5-10.1); Chloride 99 mmol/L (98-107); Estimated GFR 123.78 (mL/min/1.73m2); Glucose 73 mg/dL (74-106); Potassium 3.6 mmol/L (3.5-5.1); Sodium 136 mmol/L (136-145)
[2025-01-22 12:59] LABS: Glucose Negative (Negative)
[2025-01-22 13:07] LABS: RBC 0-2 HPF (0-2); WBC 0-2 HPF (0-5)
[2025-01-22] MEDS: Ondansetron O.D.T. 4 MG TABEF, 3 TABS/BTL PO (14:27)
[2025-01-22 14:28] VITALS: BP 124/64; PULSE 76; RESP 16; O2SAT 97
== END 2025-01-22 14:29 | disposition home or self-care (01) ==
PROVIDERS: Emergency Provider Emergency Medicine; PCP Nurse Practitioner Family
DX: O28.8 Other abnormal findings on antenatal screening of mother (principal); O21.1 Hyperemesis gravidarum with metabolic disturbance; Z3A.01 Less than 8 weeks gestation of pregnancy
CPT/HCPCS: 36415; 76815; 76857; 80048; 82962; 96374; 99284; 81003; 81015; 84702; 85025; 87086; J2405; J7042

== ENCOUNTER 2025-03-09 11:30 | Emergency (ER) | payer MEDICAID, SELFPAY ==
[2025-03-09 11:40] VITALS: BP 129/85; PULSE 76; RESP 16; TEMP 36.7; O2SAT 98
[2025-03-09 12:18] VITALS: BP 129/85; PULSE 76; RESP 16; TEMP 36.7; O2SAT 98
--- NOTE | 2025-03-09 12:25 | ED.GENADUL_ITS ---
Discharge Plan Disposition Patient Disposition: Home Discharge Details Clinical Impression: Nausea and vomiting during prior to 22 weeks gestation Primary Care Provider: Darryn Moreno ED Provider: Greg Templeton Home Meds and New Rx's Prescriptions: New ondansetron 4 mg tablet,disintegrating 4 mg PO BID 5 Days Qty: 7 0RF Continued clonidine HCl 0.1 mg tablet 0.1 mg PO BID MDD 2 tabs PRN (Reason: agitation) Qty: 60 1RF fluticasone propionate [Flonase Allergy Relief] 50 mcg/actuation spray,suspension 1 spray intranasal BID Qty: 16 4RF Rx Instructions: administer into each nostril fluoxetine 20 mg capsule 20 mg PO DAILY Qty: 90 4RF Claritin Liqui-Gel 10 mg capsule 10 mg PO DAILY Qty: 90 4RF montelukast 10 mg tablet 10 mg PO DAILY Qty: 90 4RF fluticasone furoate [Arnuity Ellipta] 50 mcg/actuation blister with device 1 inh inhalation Q24H Qty: 90 3RF acetaminophen [Tylenol] 325 MG tablet 1 tab PO PRN PRN pyridoxine (vitamin B6) 25 mg tablet 25 mg PO TID PRNQty: 30 0RF Discharge Instructions Additional Instructions: You are seen in the emergency department for your nauseous nests and vomiting. Your blood work shows that your kidney function is normal. As we discussed if you develop worsening nausea vomiting or any abdominal pain or vaginal bleeding please return to the emergency department. Otherwise please follow-up with your [facility] provider as previously scheduled. Stand Alone Forms: Work Release Discharge Data Discharge Date/Time-TO BE ENTERED AT DEPARTURE: 03/09/25 14:15 HPI General Date/Time Provider Initiated Documentation: 03/09/25 12:25 . HPI Narrative: MDM This is an overall very well-appearing normothermic and not tachycardic G3, P1 at 14 weeks with nausea and vomiting concerning for the possibility of hyperemesis gravidarum for which patient will receive D5 NS. She has also been having diarrhea and given recent uptake in COVID cases we will swab for COVID. No pain out of proportion to suggest necrotizing soft tissue infection. No chest pain to suggest ACS. Patient has a soft nontender abdomen and denies abdominal pain so my suspicion is low for appendicitis as she has no right lower quadrant tenderness. No right upper quadrant tenderness to suggest acute cholecystitis. No rash to abdomen to suggest zoster. No vaginal bleeding so I do not feel that the patient was having threatened miscarriage so do not feel she require repeat transvaginal ultrasound. No dysuria or frequency to suggest UTI. Concerning her headache was not sudden onset so my suspicion for subarachnoid hemorrhage is low. She has no nuchal rigidity to suggest meningitis and no indication for lumbar puncture. She has not been around the generator so my suspicion for carbon monoxide toxicity is low. She has had no recent chiropractic manipulation to suggest increased risk for cervical arterial dissection. 1:42 PM Negative COVID influenza and RSV. Basic metabolic panel showing mild anion gap but no DONALD. Normal bicarbonate. No acute electrolyte abnormalities. CBC showing persistent leukocytosis. No anemia. No thrombocytopenia. Patient reportedly feeling improved. She passed a p.o. trial in the ED. 2:10 PM After initially passing a p.o. trial patient subsequently vomited again. She felt improved. She received her second dose of ondansetron and requested to be discharged home. We did discuss that if she could not eat or drink as result of nausea or vomiting or if she had any other concerns that she should return to the emergency department. Otherwise I advised outpatient PCP follow-up. I prescribed her with additional ODT ondansetron which had been helping her in the past. HPI This is a patient presenting with vomiting, diarrhea, and a severe headache. The patient reports that her headache feels like her head is splitting, making it difficult for her to focus. She began experiencing persistent vomiting and diarrhea this morning, around 12:30 AM. She has vomited continuously since then and has had 12 episodes of diarrhea. She suspects she may have contracted a virus from her mother, who had similar symptoms recently. She reports no vaginal bleeding or fluid leakage and has only felt occasional fluttering sensations from the baby. Her last meal was yesterday, and she has been unable to keep any food down today. She does not experience any burning sensation during urination. The abdominal pain she experiences intensifies after episodes of vomiting and nausea. No recent chiropractic manipulation or generator exposure. Exam General: Well-appearing in no acute distress speaking in complete sentences. Head: Normocephalic, atraumatic. Eye: Extraocular eye movements intact. No conjunctival injection. No scleral icterus. Ear, nose, mouth, throat: Grossly normal inspection. Normal voice, handling secretions normally. Will check his membranes. Neck: Trachea midline. Cardiovascular: Well-perfused distal extremities. Regular rate and rhythm. Respiratory: Nonlabored respiration. Clear lungs bilaterally. Gastrointestinal: Nondistended abdomen. Soft. Nontender. No rebound. No guarding. Musculoskeletal: No edema. Moving all 4 extremities spontaneously. Skin: Normal for age and race, grossly normal temperature and turgor. No acute rash. Neurologic: Alert and appropriate, no apparent acute deficits. Psychiatric: Mood and manner are appropriate. Grooming and personal hygiene are appropriate. Related Data Home Medications ?Medication ?Instructions ?Recorded ?Confirmed loratadine 10 mg capsule (Claritin 10 mg PO DAILY #90 caps 11/11/14 03/09/25 Liqui-Gel) acetaminophen 325 mg tablet 1 tab PO PRN PRN 06/13/15 03/09/25 (Tylenol) fluoxetine 20 mg capsule 20 mg PO DAILY #90 caps 05/1603/09/25 montelukast 10 mg tablet 10 mg PO DAILY #90 tabs 05/1603/09/25 fluticasone furoate 50 1 inh inhalation Q24H #90 ea 06/30/24 03/09/25 mcg/actuation blister powder for inhalation (Arnuity Ellipta) clonidine HCl 0.1 mg tablet 0.1 mg PO BID PRN agitatio n #60 09/25/24 03/09/25 tabs fluticasone propionate 50 1 spray intranasal BID #16 g mirta 09/25/24 03/09/25 mcg/actuation nasal spray,suspension (Flonase Allergy Relief) pyridoxine (vitamin B6) 25 mg 25 mg PO TID PRN #30 tab s 01/22/25 03/09/25 tablet ondansetron 4 mg disintegrating 4 mg PO BID 5 days #7 tabs 03/09/25 tablet Previous Rx's ?Medication ?Instructions ?Recorded loratadine 10 mg capsule (Claritin 10 mg PO DAILY #90 caps 11/11/14 Liqui-Gel) fluoxetine 20 mg capsule 20 mg PO DAILY #90 caps 05/16 12/06 montelukast 10 mg tablet 10 mg PO DAILY #90 tabs 05/16 12/06 fluticasone furoate 50 1 inh inhalation Q24H #90 ea 12/16/24 mcg/actuation blister powder for inhalation (Arnuity Ellipta) clonidine HCl 0.1 mg tablet 0.1 mg PO BID PRN agitatio n #60 09/25/24 tabs fluticasone propionate 50 1 spray intranasal BID #16 g mirta 09/25/24 mcg/actuation nasal spray,suspension (Flonase Allergy Relief) pyridoxine (vitamin B6) 25 mg 25 mg PO TID PRN #30 tab s 01/22/25 tablet ondansetron 4 mg disintegrating 4 mg PO BID 5 days #7 tabs 03/09/25 tablet Allergies Allergy/AdvReac Type Severity Reaction Status Date / Time Sulfa (Sulfonamide Allergy Severe Anaphylaxsi Verified 03/09/25 11:39 Antibiotics) s sulfamethoxazole (From Allergy Severe Anaphylaxis Verified 01/22/25 11:21 Bactrim) trimethoprim (From Bactrim) Allergy Severe Anaphylaxis Verified 03/09/25 11:39 mold Allergy Intermediate Swelling/Ed Verified 03/09/25 11:39 adrianna pneumococcal vaccine Allergy Mild Contraindic Verified 03/09/25 11:39 ated pollen extracts Allergy Mild Wheezing Verified 03/09/25 11:39 doxycycline AdvReac Severe Nausea Verified 03/09/25 11:39 diphenhydramine (From AdvReac Contraindic Verified 03/09/25 11:39 Benadryl) ated General Stated Complaint: Nausea/Vomit/Diar JORGE L: 3 Course Vital Signs Vital signs: Vital Signs Temperature 36.7 C 03/09/25 11:40 Pulse 76 03/09/25 11:40 Respiratory Rate 16 03/09/25 11:40 Blood Pressure 129/85 03/09/25 11:40 Pulse Oximetry 98 03/09/25 11:40 Temperature 36.7 C 03/09/25 12:18 Pulse 76 03/09/25 12:18 Respiratory Rate 16 03/09/25 12:18 Blood Pressure 129/85 03/09/25 12:18 Pulse Oximetry 98 03/09/25 12:18 Pain Level 10 03/09/25 12:18 PFSH All Active Problems (Updated 03/09/25 @ 13:45 by Greg Templeton MD) Nausea and vomiting during prior to 22 weeks gestation (Acute) Skin lesion (Acute) left shoulder Lump of skin (Acute) Allergies (Acute) Hallux valgus of left foot (Acute) Onychomycosis (Acute) Anxiety and depression (Chronic) Insomnia (Acute) Headache (Acute) Rash (Acute) COVID-19 (Acute) Genital herpes (Acute) HSV PCR blood test negative for HSV 1&2 09/08/2019 Allergic rhinitis due to pollen (Chronic 08/20/17) Medical History Astigmatism Incomplete miscarriage Asthma Surgical History S/P matrixectomy of toe of right foot H/O dilation and curettage History of surgical procedure (~09/2018) left middle finger Family History Mother Asthma Hypertension Father No problems noted. Sister No problems noted. Brother No problems noted. Maternal Grandfather , 50 Heart disease Maternal Grandmother No problems noted. Paternal Grandmother No problems noted. Social History Smoking/Tobacco Use Status: Never Smoking risk assessment performed?: Yes Alcohol Intake: never Drug use: Never Substance use type: does not use Caregiver/Support person: No Household members: other Details: parents Housing: house Communication Needs: None Do you need help understanding health information?: Never Pets and animals: Yes Pets and animals: cat(s), dog(s) and farm animals Sexually active: No Do you think of yourself as: straight/heterosexual Current gender identity: female What is your relationship status?: refused to answer How often do you talk on the phone with friends or family?: once per week How often do you get together with friends or relatives?: never How often do you attend orthodox or church services?: decline to answer Do you belong to any clubs or organized social groups?: no Panel score (0-1 are the most socially isolated patients): 0 What type of physical activity do you participate in: none Seatbelt use: always Helmet use: Yes Helmet use: always Drive 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 Female Reproductive History Menstrual control method: progesterone injection History History 1 Para 0 Hx # Term Pregnancies Multiple births Hx # Pregnancies Ectopic pregnancies AB induced Hx Number of Living Children AB spontaneous 1 POCUS Exam (ED) Limited Pelvic Exam PROVIDER THAT PERFORMED THE STUDY: Greg Templeton IS THIS A REPEAT EXAM DURING THIS ENCOUNTER: No Type of Exam: Pelvic Trans Abdominal Exam REASON FOR EXAM: Other indication: VISUALIZED STRUCTURES: Uterus PERTINENT FINDINGS/IMPRESSION: Other impression: heart rate [ ] beats per minute Exam Complete ( heart rate 141 bpm.)
[2025-03-09] MEDS: Ondansetron 4 MG/2 ML VIAL IVP ×2 (12:58→14:09)
[2025-03-09] MEDS: ACETAMINOPHEN 500 MG/50 ML BAG 200 MG IVPB (12:58)
[2025-03-09] MEDS: DEXTROSE 5%-0.9% SALINE 1,000 ML 1000 ML IV (12:59)
[2025-03-09 13:09] VITALS: BP 104/47; PULSE 66; RESP 16; O2SAT 100
[2025-03-09 13:09] LABS: Abs Immature Grans 0.06 10^3/uL (0.0-0.06); HCT 41.0 % (36.0-46.0); HGB 13.7 g/dL (11.2-15.7); Immature Grans % 0.5 %; MCH 28.6 pg (27.0-33.0); MCHC 33.4 % (32.0-36.0); MCV 86 fL (80-95); MPV 9.7 fL (8.0-11.0); Platelet Count 291 10^3/uL (130-400); RBC 4.79 10^6/uL (3.93-5.22); RDW 12.5 % (11.7-14.6); RDW-SD 39.3 fL; WBC 13.06 10^3/uL (4.4-10.8)
[2025-03-09 13:21] LABS: Anion Gap 12.8 mmol/L (3-11); BUN 11 mg/dL (7-18); CO2 24.2 mmol/L (21.0-32.0); Calcium 9.1 mg/dL (8.5-10.1); Chloride 103 mmol/L (98-107); Estimated GFR 127.67 (mL/min/1.73m2); Glucose 76 mg/dL (74-106); Potassium 3.8 mmol/L (3.5-5.1); Sodium 140 mmol/L (136-145)
[2025-03-09 13:22] LABS: COVID-19 PCR Negative (Negative); RSV PCR Negative (Negative)
[2025-03-09 14:14] VITALS: BP 118/59; PULSE 75; RESP 16; O2SAT 97
== END 2025-03-09 14:15 | disposition home or self-care (01) ==
PROVIDERS: Emergency Provider Emergency Medicine; PCP Nurse Practitioner Family
DX: O21.9 Vomiting of pregnancy, unspecified (principal); Z3A.14 14 weeks gestation of pregnancy; R19.7 Diarrhea, unspecified; R51.9 Headache, unspecified
CPT/HCPCS: 99284 ×2; 96374; 96375; 96376; 36415; 76857; 80048; 87637; 85025; J0131; J2405; J7042

== ENCOUNTER 2025-05-01 06:50 | Emergency (ER) | payer MEDICAID, SELFPAY ==
[2025-05-01 06:59] VITALS: BP 103/65; PULSE 88; RESP 17; TEMP 36.6; O2SAT 100
[2025-05-01 07:14] VITALS: BP 103/65; PULSE 88; RESP 17; TEMP 36.6; O2SAT 100
[2025-05-01] MEDS: Acetaminophen 500 MG TAB 1000 MG PO (07:24)
--- NOTE | 2025-05-01 07:26 | W.ED.GENAD ---
Discharge Plan Disposition Patient Disposition: Home Condition: Stable Discharge Details Clinical Impression: URI (upper respiratory infection) Primary Care Provider: Darryn Moreno ED Provider: Keyla Bruce Home Meds and New Rx's Prescriptions: No Action clonidine HCl 0.1 mg tablet 0.1 mg PO BID MDD 2 tabs PRN (Reason: agitation) Qty: 60 1RF fluticasone propionate [Flonase Allergy Relief] 50 mcg/actuation spray,suspension 1 spray intranasal BID Qty: 16 4RF Rx Instructions: administer into each nostril fluoxetine 20 mg capsule 20 mg PO DAILY Qty: 90 4RF Claritin Liqui-Gel 10 mg capsule 10 mg PO DAILY Qty: 90 4RF montelukast 10 mg tablet 10 mg PO DAILY Qty: 90 4RF fluticasone furoate [Arnuity Ellipta] 50 mcg/actuation blister with device 1 inh inhalation Q24H Qty: 90 3RF acetaminophen [Tylenol] 325 MG tablet 1 tab PO PRN PRN pyridoxine (vitamin B6) 25 mg tablet 25 mg PO TID PRNQty: 30 0RF Discharge Instructions Instructions: Viral Upper Respiratory Infection, Adult (DC) Additional Instructions: You were seen in the emergency department today for evaluation of runny and stuffy nose, sore throat, and cough, concerning for a viral upper respiratory infection. You had a swab for COVID, influenza, and RSV that was negative. You likely have some other virus, similar to the one you are family members were diagnosed with. During your ER visit today there was no evidence on your physical examination or vital signs increase or concern for pneumonia. It is safe for you to take Tylenol during , you can take 1000 mg every 6 hours as needed for pain or fever. I do not recommend that you take ibuprofen during . You can use other conservative measures to manage your sore throat such as hot tea with honey, large marshmallows, etc. 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 Thank you for allowing us to be part of your care. Stand Alone Forms: School Release HPI General Mode of arrival: ambulatory. Date/Time Provider Initiated Documentation: 05/01/25 06:52. Limitations to Documentation: no limitations. Information obtained by: patient and old records reviewed. HPI Narrative: This is a 25-year-old female patient, 22 weeks , otherwise previously healthy presenting for evaluation of upper respiratory symptoms. She reports that on Sunday she developed a runny nose, states that everybody in her family has been sick with similar symptoms and her child was diagnosed with some sort of respiratory virus at a clinic, but she does not remember the name. She reports that she has not been taking any medications at home for symptoms given her . She has not had a fever or chills, states that she has had a sore throat, a cough but no sputum production, with soreness specifically in her throat during coughing. She has had yellow to green mucus from her nose. She feels like she has been able to maintain her hydration and nutrition. Denies related concerns, including contractions, vaginal bleeding or discharge. Related Data Home Medications ?Medication ?Instructions ?Recorded ?Confirmed loratadine 10 mg capsule (Claritin 10 mg PO DAILY #90 caps 11/11/14 05/01/25 Liqui-Gel) acetaminophen 325 mg tablet 1 tab PO PRN PRN 06/13/15 05/01/25 (Tylenol) fluoxetine 20 mg capsule 20 mg PO DAILY #90 caps 05/30/24 05/01/25 montelukast 10 mg tablet 10 mg PO DAILY #90 tabs 05/30/24 05/01/25 fluticasone furoate 50 1 inh inhalation Q24H #90 ea 06/30/24 05/01/25 mcg/actuation blister powder for inhalation (Arnuity Ellipta) clonidine HCl 0.1 mg tablet 0.1 mg PO BID PRN agitation #60 09/25/24 05/01/25 tabs fluticasone propionate 50 1 spray intranasal BID #16 grams 09/25/24 05/01/25 mcg/actuation nasal spray,suspension (Flonase Allergy Relief) pyridoxine (vitamin B6) 25 mg 25 mg PO TID PRN #30 tabs 01/22/25 05/01/25 tablet Previous Rx's ?Medication ?Instructions ?Recorded loratadine 10 mg capsule (Claritin 10 mg PO DAILY #90 caps 11/11/14 Liqui-Gel) fluoxetine 20 mg capsule 20 mg PO DAILY #90 caps 05/30/24 montelukast 10 mg tablet 10 mg PO DAILY #90 tabs 11/15/24 fluticasone furoate 50 1 inh inhalation Q24H #90 ea 06/30/24 mcg/actuation blister powder for inhalation (Arnuity Ellipta) clonidine HCl 0.1 mg tablet 0.1 mg PO BID PRN agitation #60 09/25/24 tabs fluticasone propionate 50 1 spray intranasal BID #16 grams 09/25/24 mcg/actuation nasal spray,suspension (Flonase Allergy Relief) pyridoxine (vitamin B6) 25 mg 25 mg PO TID PRN #30 tabs 01/22/25 tablet Allergies Allergy/AdvReac Type Severity Reaction Status Date / Time Sulfa (Sulfonamide Allergy Severe Anaphylaxsi Verified 05/01/25 07:03 Antibiotics) s sulfamethoxazole (From Allergy Severe Anaphylaxis Verified 05/01/25 07:03 Bactrim) trimethoprim (From Bactrim) Allergy Severe Anaphylaxis Verified 05/01/25 07:03 mold Allergy Intermediate Swelling/Ed Verified 05/01/25 07:03 adrianna pneumococcal vaccine Allergy Mild Contraindic Verified 05/01/25 07:03 ated pollen extracts Allergy Mild Wheezing Verified 05/01/25 07:03 doxycycline AdvReac Severe Nausea Verified 05/01/25 07:03 diphenhydramine (From AdvReac Contraindic Verified 05/01/25 07:03 Benadryl) ated General Stated Complaint: RespSymp JORGE L: 4 Exam Narrative Exam Narrative: Gen: Awake and alert, in no apparent distress HEENT: Non-icteric sclera, PERRL, conjunctiva noninjected and EOMs are full. Posterior pharynx without erythema, exudate, or asymmetry Neck: Supple, full range of motion without meningismus Lungs: No apparent respiratory distress, normal respiratory effort. Lung sounds clear and equal bilaterally without wheezing, rhonchi, rales CV: Appears well perfused, heart with regular rate and rhythm, strong distal pulses Abdomen: Gravid, no tenderness to palpation, no rigidity, rebound, or guarding MSK: Moves 4 extremities without apparent limitation in ROM Skin: Visualized skin without rashes, cyanosis. Neuro: Normal Gait, no obvious focal deficits or facial asymmetry. Speaks in full, clear sentences. Psych: Appropriate for situation. Course Vital Signs Vital signs: Vital Signs Temperature 36.6 C 05/01/25 06:59 Pulse 88 05/01/25 06:59 Respiratory Rate 17 05/01/25 06:59 Blood Pressure 103/65 05/01/25 06:59 Pulse Oximetry 100 05/01/25 06:59 Temperature 36.6 C 05/01/25 07:14 Temperature Source Oral 05/01/25 07:14 Pulse 88 05/01/25 07:14 Respiratory Rate 17 05/01/25 07:14 Respiratory Effort Normal, Non-Labored 05/01/25 07:15 Respiratory Depth Normal 05/01/25 07:15 Blood Pressure 103/65 05/01/25 07:14 Blood Pressure Position Sitting 05/01/25 07:14 Pulse Oximetry 100 05/01/25 07:14 Oxygen Delivery Method Room Air 05/01/25 07:14 Oxygen Flow Rate 0 05/01/25 07:14 Pain Level 10 05/01/25 07:14 Medical Decision Making This is a 25-year-old female patient presenting for evaluation of several days of runny nose, cough, sore throat. Differential includes but is not limited to viral URI, viral pharyngitis, no tonsillar exudates or recent exposures to significantly increase my concern for strep pharyngitis. I considered pneumonia and bronchitis with the patient is without focal lung findings, tachycardia, fever, or hypoxia to suggest same. The patient has no related concerns at this time, and is hemodynamically appropriate without evidence of sepsis or bacteremia. We obtained a viral swab which was negative for COVID, RSV, and influenza. The patient has not yet been vaccinated this year due to allergies to the vaccines. We discussed the utility of chest x-ray and given her and the lack of focal lung findings I do not feel that advanced imaging to rule out pneumonia is warranted at this time. I did have an extended discussion with the patient regarding the safety of medications in including Tylenol, and provided her with a dose of this medication for management of her symptoms in the ED. She also received a Zofran for nausea, has this medication already at home. The patient's exam is most concerning for viral URI. At this time, the patient has had a full medical evaluation and is safe for discharge to home. They are hemodynamically stable, ambulatory, and tolerating PO. They are understanding of the follow-up plan and return precautions. They left our facility without incident. Keyla Bruce MD [facility] All Active Problems (Updated 05/01/25 @ 08:09 by Keyla Bruce MD) URI (upper respiratory infection) (Acute) Skin lesion (Acute) left shoulder Lump of skin (Acute) Allergies (Acute) Hallux valgus of left foot (Acute) Onychomycosis (Acute) Anxiety and depression (Chronic) Insomnia (Acute) Headache (Acute) Rash (Acute) COVID-19 (Acute) Genital herpes (Acute) HSV PCR blood test negative for HSV 1&2 09/08/2019 Allergic rhinitis due to pollen (Chronic 08/20/17) Medical History Astigmatism Incomplete miscarriage Asthma Surgical History S/P matrixectomy of toe of right foot H/O dilation and curettage History of surgical procedure (~09/2018) left middle finger Family History Mother Asthma Hypertension Father No problems noted. Sister No problems noted. Brother No problems noted. Maternal Grandfather , 50 Heart disease Maternal Grandmother No problems noted. Paternal Grandmother No problems noted. Social History Smoking/Tobacco Use Status: Never Smoking risk assessment performed?: Yes Alcohol Intake: never Drug use: Never Substance use type: does not use Caregiver/Support person: No Household members: other Details: parents Housing: house Communication Needs: None Do you need help understanding health information?: Never Pets and animals: Yes Pets and animals: cat(s), dog(s) and farm animals Sexually active: No Do you think of yourself as: straight/heterosexual Current gender identity: female What is your relationship status?: refused to answer How often do you talk on the phone with friends or family?: once per week How often do you get together with friends or relatives?: never How often do you attend gnosticism or temple services?: decline to answer Do you belong to any clubs or organized social groups?: no Panel score (0-1 are the most socially isolated patients): 0 What type of physical activity do you participate in: none Seatbelt use: always Helmet use: Yes Helmet use: always Drive intox or ride w/intox driver's license reviewing officer: No Do you feel safe at home: Yes Do you feel safe in your relationship?: Yes Additional Social history: boyfriend at bedside. Female Reproductive History Menstrual control method: progesterone injection History History 1 Para 0 Hx # Term Pregnancies Multiple births Hx # Pregnancies Ectopic pregnancies AB induced Hx Number of Living Children AB spontaneous 1
[2025-05-01 07:52] LABS: COVID-19 PCR Negative (Negative); RSV PCR Negative (Negative)
[2025-05-01] MEDS: Ondansetron O.D.T. 4 MG TABEF PO (08:11)
[2025-05-01 08:16] VITALS: BP 117/53; PULSE 83; RESP 18; O2SAT 96
== END 2025-05-01 08:18 | disposition home or self-care (01) ==
PROVIDERS: Emergency Provider Emergency Medicine; PCP Nurse Practitioner Family
DX: J06.9 Acute upper respiratory infection, unspecified (principal); Z3A.22 22 weeks gestation of pregnancy
CPT/HCPCS: 99283; 99282; 87637